=== PATIENT | male | born 1965 | race Caucasian/White ===

== ENCOUNTER 2018-03-10 08:54 | Emergency (ER) | payer OTHER ==
[2018-03-10] MEDS: methylPREDNISolone INJ 125 MG/2 ML VIAL (J2930) IV (09:30)
[2018-03-10 10:08] LABS: VENOUS BASE EXCESS 3.9 (-2.0-2.0); VENOUS HCO3 31.3 MEQ/L (23.0-27.0); VENOUS O2 SATURATION 93.4 % (60.0-80.0); VENOUS PARTIAL PRESSURE O2 68.8 mmHg (30.0-50.0); VENOUS STANDARD HCO3 27.9 MEQ/L; VENOUS TOTAL CO2 33.1 MEQ/L (24.0-28.0)
[2018-03-10] MEDS: IPRATROPIUM 0.5MG/ALBUTEROL 2.5MG INH SOL UD 3ML (DUONEB)(J7620) NEB (10:11)
[2018-03-10 10:14] LABS: BASO # 0.1 10^3/uL (0.0-0.2); EOS # 0.2 10^3/uL (0.0-0.50); EOS % 3.9 % (0.0-3.0); HEMATOCRIT 43.4 % (42.0-52.0); HEMOGLOBIN 14.5 g/dl (13.5-17.5); IMMATURE GRANULOCYTE % 0.2 % (0-3.0); LYMPH # 1.9 10^3/uL (1.5-4.5); LYMPH % 30.7 % (24.0-44.0); MEAN CORPUSCULAR HEMOGLOBIN 30.6 pg (27.0-33.0); MEAN CORPUSCULAR HGB CONC 33.4 g/dl (32.0-36.5); MEAN CORPUSCULAR VOLUME 91.6 fl (80.0-96.0); MONO # 0.5 10^3/uL (0.0-0.8); MONO % 7.4 % (0.0-5.0); NEUTROPHILS # 3.5 10^3/uL (1.8-7.7); NEUTROPHILS % 56.8 % (36.0-66.0); PLATELET COUNT, AUTOMATED 238 10^3/uL (150-450); RED BLOOD COUNT 4.74 10^6/uL (4.30-6.10); RED CELL DISTRIBUTION WIDTH 12.3 % (11.5-14.5); WHITE BLOOD COUNT 6.2 10^3/uL (4.0-10.0)
[2018-03-10 10:32] LABS: ALBUMIN 3.5 GM/DL (3.2-5.2); ALBUMIN/GLOBULIN RATIO 0.88 (1.00-1.93); ALKALINE PHOSPHATASE 58 U/L (45-117); ALT/SGPT 94 U/L (12-78); ANION GAP 5 MEQ/L (8-16); AST/SGOT 41 U/L (7-37); BILIRUBIN,DIRECT < 0.1 MG/DL (0.0-0.2); BILIRUBIN,TOTAL 0.2 MG/DL (0.2-1.0); BLOOD UREA NITROGEN 22 MG/DL (7-18); CALCIUM LEVEL 8.8 MG/DL (8.5-10.1); CARBON DIOXIDE LEVEL 31 MEQ/L (21-32); CHLORIDE LEVEL 104 MEQ/L (98-107); CPK CREATINE PHOSPHOKINASE 205 U/L (39-308); GLOMERULAR FILTRATION RATE > 60.0 (>56); GLUCOSE, FASTING 113 MG/DL (70-100); POTASSIUM SERUM 4.7 MEQ/L (3.5-5.1); SODIUM LEVEL 140 MEQ/L (136-145); TOTAL PROTEIN 7.5 GM/DL (6.4-8.2); TROPONIN I < 0.02 NG/ML (< 0.10)
[2018-03-10 10:33] LABS: MB/CK RELATIVE INDEX 1.95 (< OR =4); NT-PRO BNP 40 PG/ML (<125)
== END 2018-03-10 11:20 | disposition home or self-care (01) ==
LOC: M ED 08:54
DX: I10 Essential (primary) hypertension (principal); R06.02 Shortness of breath; R06.2 Wheezing; F17.210 Nicotine dependence, cigarettes, uncomplicated; R94.5 Abnormal results of liver function studies
CPT/HCPCS: J2930

== ENCOUNTER 2020-10-24 09:14 | Inpatient (IN) | payer OTHER ==
[~2020-10-24] VITALS: Ht 175.3 cm; Wt 123.8 kg
[~2020-10-24 09:14] MED LIST: LISI2.5T2 PO; PRED20TA PO; PROAAER10 INH; SUBO8MIS SL
--- NOTE | 2020-10-24 10:01 | REP ---
INDICATION: DYSPNEA/COUGH COMPARISON: 03/10/2018 TECHNIQUE: Portable AP view of the chest FINDINGS: The mediastinum and cardiac silhouette are stable and within normal limits for portable technique. The lung allison are clear without acute consolidation, effusion, or pneumothorax. Skeletal structures are intact. IMPRESSION: No acute cardiopulmonary process appreciated. <Electronically signed by Jose Coyle > 10/24/20 0958
[2020-10-24 10:12] LABS: VENOUS BASE EXCESS 5.9 (-2.0-2.0); VENOUS HCO3 36.4 MEQ/L (23.0-27.0); VENOUS O2 SATURATION 87.9 % (60.0-80.0); VENOUS PARTIAL PRESSURE CO2 80.3 mmHg (38.0-50.0); VENOUS PARTIAL PRESSURE O2 56.5 mmHg (30.0-50.0); VENOUS PH 7.274 UNITS (7.330-7.430); VENOUS STANDARD HCO3 29.5 MEQ/L; VENOUS TOTAL CO2 38.8 MEQ/L (24.0-28.0)
[2020-10-24 10:30] LABS: BASO # 0.1 10^3/uL (0.0-0.2); BASO % 0.9 % (0.0-1.0); EOS # 0.3 10^3/uL (0.0-0.5); HEMATOCRIT 48.9 % (42.0-52.0); HEMOGLOBIN 15.4 g/dl (13.5-17.5); LYMPH # 1.9 10^3/uL (1.5-5.0); LYMPH % 28.3 % (24.0-44.0); MEAN CORPUSCULAR HEMOGLOBIN 30.6 pg (27.0-33.0); MEAN CORPUSCULAR HGB CONC 31.5 g/dl (32.0-36.5); MEAN CORPUSCULAR VOLUME 97.2 fl (80.0-96.0); MONO # 0.5 10^3/uL (0.0-0.8); MONO % 7.6 % (2.0-8.0); NEUTROPHILS # 3.9 10^3/uL (1.5-8.5); NEUTROPHILS % 58.9 % (36.0-66.0); PLATELET COUNT, AUTOMATED 223 10^3/uL (150-450); RED BLOOD COUNT 5.03 10^6/uL (4.30-6.10); WHITE BLOOD COUNT 6.7 10^3/uL (4.0-10.0)
[2020-10-24 10:39] LABS: INR 0.94; PROTHROMBIN TIME 12.8 SECONDS (12.5-14.3)
[2020-10-24 10:55] LABS: ALBUMIN 3.7 GM/DL (3.2-5.2); ALT/SGPT 103 U/L (12-78); BILIRUBIN,DIRECT < 0.1 MG/DL (0.0-0.2); BILIRUBIN,TOTAL 0.3 MG/DL (0.2-1.0); NT-PRO BNP 69 PG/ML (<125); THYROXINE (T4) 7.7 UG/DL (4.5-12.0); TOTAL PROTEIN 7.6 GM/DL (6.4-8.2)
[2020-10-24 11:27] LABS: BLOOD UREA NITROGEN 19 MG/DL (7-18); CARBON DIOXIDE LEVEL 36 MEQ/L (21-32); CHLORIDE LEVEL 102 MEQ/L (98-107); CREATININE FOR GFR 0.96 MG/DL (0.70-1.30); GLOMERULAR FILTRATION RATE > 60.0 (>56); GLUCOSE, FASTING 126 MG/DL (70-100); POTASSIUM SERUM 4.7 MEQ/L (3.5-5.1); SODIUM LEVEL 139 MEQ/L (136-145)
[2020-10-24] MEDS ORDERED: methylPREDNISolone 125MG 2ML VIAL IV ONE (11:55)
[2020-10-24] MEDS: COMBIVENT RESPIMAT 100-20MCG INHALER 4GM INH PRN ×2 (11:58→12:40)
[2020-10-24] MEDS ORDERED: ISOVUE-370 76% 100ML VIAL As Ordered ONE (12:25)
--- NOTE | 2020-10-24 12:52 | REP ---
INDICATION: sob. COMPARISON: None. TECHNIQUE: CT of the chest with IV contrast, CT angiography. FINDINGS: There are no emboli in the pulmonary trunk or central pulmonary arteries. There are no emboli in the pulmonary artery lobar segment branches. There are no infiltrates or pleural effusions. There are no nodules or masses. There is no mediastinal or hilar lymph node enlargement. There is no axillary lymphadenopathy. The thoracic aorta is unremarkable. Cardiac size is normal. There is no pericardial effusion. Upper abdomen: The hepatic parenchyma is diffusely less dense than the spleen suggestive of hepato steatosis. There are no hepatic nodules or masses in the visualized hepatic parenchyma. The gallbladder is not imaged. The pancreas is not imaged. The visualized areas of the spleen are unremarkable. There are no adrenal nodules or masses. IMPRESSION: There are no pulmonary emboli. There are no infiltrates, effusions, nodules or masses. No adenopathy. The gallbladder and pancreas are not imaged. There are no adrenal nodules or masses. <Electronically signed by Harrison Akers > 10/24/20 [id number]
[2020-10-24] MEDS ORDERED: ACETAMINOPHEN TAB 650MG DOSE (2X325MG) PO PRN (14:05)
[2020-10-24] MEDS ORDERED: MOM 30ML SUSPENSION UDC PO PRN (14:05)
[2020-10-24] MEDS ORDERED: MAALOX 30 ML SUSP *UDC PO PRN (14:05)
[2020-10-24 15:00] LABS: APPEARANCE, URINE CLEAR (CLEAR); BACTERIA, URINE AUTO NEGATIVE (NEGATIVE); BILIRUBIN, URINE AUTO NEGATIVE (NEGATIVE); BLOOD, URINE BLOOD NEGATIVE (NEGATIVE); COLOR, URINE YELLOW (YELLOW); GLUCOSE, URINE (UA) AUTO NEGATIVE (NEGATIVE); KETONE, URINE AUTO NEGATIVE (NEGATIVE); LEUKOCYTE ESTERASE, URINE AUTO NEGATIVE (NEGATIVE); NITRITE, URINE AUTO NEGATIVE (NEGATIVE); PROTEIN, URINE AUTO NEGATIVE (NEGATIVE); RBC, URINE AUTO 0 /HPF (0-3); SQUAMOUS EPITHELIAL CELL UR AU 0 /HPF (0-6); UROBILINOGEN, URINE AUTO 0.2 mg/dL (0.0-2.0); WBC, URINE AUTO 0 /HPF (0-3)
[2020-10-24 15:18] LABS: HEMOGLOBIN A1c 6.5 %
[2020-10-24] MEDS ORDERED: FUROSEMIDE 100MG/10ML VIAL (J1940) IV ONE (15:25)
[2020-10-24] MEDS ORDERED: CARVedilol 3.125 MG TAB PO ONE (15:25)
[2020-10-24 15:55] VITALS: BP 164/78
[2020-10-24 16:48] LABS: TROPONIN I 0.03 NG/ML (< 0.10)
[2020-10-24] MEDS: NICOTINE 14 MG/24 HR TRANSDERMAL TD SCH (16:52)
--- NOTE | 2020-10-24 16:53 | HPEPDOC ---
[facility] Medical History & Physical Date of Admission Oct 24, 2020 Date of Service: Oct 24, 2020 Primary Care Physician: Steven Martinez MD Attending Physician: DANIEL HUSSEIN MD History and Physical CHIEF COMPLAINT: Shortness of breath HISTORY OF PRESENT ILLNESS: Mr. Jorge is a 55 y/o M with hx of previously treated HTN and opioid use disorder (In remission for 15 years with Suboxone), presenting to the ED complaining of worsening SOB for the past week. Per patient, his symptoms first started 6 months ago with B/L leg swelling without redness or pain. 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 His SOB was so severe that he had difficulty getting on and off construction vehicles, forcing him to take frequent breaks with some improvement in his SOB. His symptoms continued to worsen and were complicated with nocturnal cough, B/L LE erythema and yellowing of toenail on wednesday. He felt like his feet "weighted 100lbs" and he was barely able to move his ankles. Today, patient had a scheduled appointment with Dr. Martinez (his PCP) and reported his symptoms, prompting his referral to ED for evaluation. Patient denied associated weight changes, fever, chills, CP, orthopnea, abd pain, N/V/D, urinary issues, but noted dyspnea on exertion with associated palpitation. He also reported some cold intolerance. Of note, patient reported that he used to see Dr. Stein as PCP and Dr. Martinez for addiction medicine a year ago(patient with hx of snorting heroine, has been clean for the past 15 years and managed with Suboxone). Due to insurance issue, patient stopped seeing Dr. Stein and ran out of all his medication after a month. Although unable to recall name and dosage, he reported that he used to take "b lood pressure pill, fluid pill and an inhaler". He has been using his brother's inhaler and last use was 2 months ago. He also reported hx of "thyroid issues" a year ago that caused him to gain 80lbs over 90 days, but he received no treatment due to loss of PCP. While in the ED, patient's CXR and chest CTA were unremarkable. EKG showed NSR at rate of 80 bpm. His O2 sat remained at high 80s on RA. Hospitalist was called for admission for COPD exacerbation. PAST MEDICAL HISTORY: 1. Hx of previously treated HTN 2. Hx of opioid use disorder, in remission PAST SURGICAL HISTORY: 1. 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 IV drug use: Denied Other relevant social factors: Lives at home with girlfriend and daughter, no use of wood burning stove. Has 1 cat and 1 dog. No recent sick contact. FAMILY HISTORY: Father: of lung cancer at age 75. Mother: living with hx of DM and breast cancer, age 78 Siblings: Brother of electrical accident Children: daughter in good health ALLERGIES: Please see below. REVIEW OF SYSTEMS: CONSTITUTIONAL: Denies chills, fever, loss of appetite, but noted fatigue, generalized weakness, sweating and weight gain of 80lbs over 90 days a year ago. HEENT: Denies headaches, dizziness, vision changes, hearing changes or throat pain. CARDIOVASCULAR: Denies chest pain but noted palpitations, dyspnea on exertion, edema RESPIRATORY: Denies hemoptysis, orthopnea but noted nocturnal cough and dyspnea GASTROINTESTINAL: Denies nausea, vomiting, abdominal pain, diarrhea, constipation, melena, hematochezia GENITAOURINARY: Denies dysuria, hematuria, urinary frequency, incontinence or retention. SKIN: Denies lesions, jaundice, bruising MUSCULOSKELETAL: Denies muscle or joint pain but noted generalized weakness NEUROLOGICAL: Denies focal weakness, tingling, change in Speech, but noted mild numbness in B/L LE. PSYCHIATRIC: Denies SI, HI, audio/visual hallucination HEMATOLOGICAL: Denies bruising, excessive bleeding, petechiae ENDOCRINE: Noted cold intolerance HOME MEDICATIONS: Please see below. PHYSICAL EXAMINATION: VITAL SIGNS: See below GENERAL APPEARANCE: Revealed a 55 y/o M appeared as stated age in semi-barroso position on ER cot, alert & oriented x3, in no acute Distress. HEENT Exam: Normocephalic and atraumatic, PERRLA, conjunctiva & lids normal, EOMI, without sclera icteric, mucous membr. moist/pink, pharynx normal, nares patent on 1L/min O2 via NC. NECK: Supple without lymphadenopathy, JVD, thyromegaly LUNGS: Diffuse end expiratory wheezing more prominent in the upper lobes bilaterally without rales and crackles. CARDIOVASCULAR: Regular rate and rhythm, normal S1 & S2 without gallops, murmurs, rubs TELEMETRY: Showed 82 bpm, 184/88, 92% on 1L/min, RR of 23 ABDOMEN: Obese, distended abd, soft, non-distended with normal bowel sounds. No masses or ecchymosis or hepatosplenomegaly. EXTREMITIES: 2+ radial pulses, unable to assess DP, PT pulses due to edema, delayed capillary refill >2 seconds in B/L LE. No clubbing, cyanosis. Non- pitting edema noted in B/L UE. 2+ pitting edema with erythema and discoloration in B/L LE. SKIN: Normal turgor and temperature. Skin discoloration noted in all four extremities. MUSCULOSKELETAL: Strength +5/5 in all extremities without tenderness. NEUROLOGICAL: Normal speech with intact sensation, cranial nerves III-XII normal. No gross focal neurological deficit noted. PSYCHIATRIC: Normal mood and affect LABORATORY DATA: See below. IMAGIN. Portable Chest C-ray 10/24/2020 IMPRESSION: No acute cardiopulmonary process appreciated. 2. CT angio chest 10/24/2020 IMPRESSION: There are no pulmonary emboli. There are no infiltrates, effusions, nodules or masses. No adenopathy. The gallbladder and pancreas are not imaged. There are no adrenal nodules or masses. MICROBIOLOGY: Please see below. ASSESSMENT: Mr. Jorge is a 55 y/o M with hx of previously treated HTN and opioid use disorder (In remission for 15 years with Suboxone), presenting to the ED complaining of worsening SOB for the past week. Patient is admitted for shortness of breath requiring oxygen supplementation to maintain O2 saturation above 90%. PLAN: 1. Shortness of breath with B/L LE swelling - Etiology unknown, could be multifactorial, ddx includes: R sided HF, combination of R&L sided HF, R sided HF 2/2 pulmonary HTN, restrictive lung disease, ILD - most likely R sided HF 2/2 obesity, smoking, pulmonary HTN and ILD - received 2 doses of Combivent Respimat and 125mg IV solumedrol in ED - IV lasix 60mg today, re-evaluate volume status tomorrow am - Repeat EKG in am, telemetry overnight - Trend trop x1 - thyroid panel, CXR, CTA chest, BNP and trop (POC) unremarkable, Respiratory panel and COVID negative - B/L LE doppler US to r/o DVT - Cont Combivent inhaler prn - 2D echocardiogram in am - PO prednisone 40mg in am - Start low dose Coreg 3.125mg BID - Daily CBC and CMP - Daily weighs and monitor I/O 2. Hx of previous treated HTN - Hypertensive 188/94 in the ED - Start low dose Coreg 3.125mg BID and IV lasix 60mg today - Continue to monitor and adjust BP regimen accordingly 3. Diabetes Mellitus, newly diagnosed - Patient reported drinking 6-8 cans of soda daily - Elevated BS 126 - A1c 6.5 - No regimen inpatient, will need outpatient follow up for diabetic regimen - Lipid panel in am, UA 4. Tobacco use - Nicotine patch QD - peer counselor for smoking cessation 5. Transaminitis - Can be 2/2 hepatic congestion - AST 42, ALT 103 - Repeat CMP to monitor - F/u hepatitis panel 6. Heroine use disorder, in remission - In remission for the past 15 years with Suboxone - Cont home dose suboxone Disposition: Admit to inpatient Diet: 2gm sodium diet VTE prophylaxis: Lovenox Code status: Full code Baseline ambulatory status: Ambulatory without assistance. Vital Signs Vital Signs Date Time Temp Pulse Resp B/P (MAP) Pulse Ox O2 Delivery O2 Flow Rate FiO2 10/24/20 14:30 81 22 146/84 (104) 95 Nasal Cannula 1.5 10/24/20 09:15 97.0 Laboratory Data Labs 24H Laboratory Tests 2 10/24/20 09:38: Immature Granulocyte % (Auto) 0.3, Neutrophils (%) (Auto) 58.9, Lymphocytes (%) (Auto) 28.3, Monocytes (%) (Auto) 7.6, Eosinophils (%) (Auto) 4.0H, Basophils (%) (Auto) 0.9, Neutrophils # (Auto) 3.9, Lymphocytes # (Auto) 1.9, Monocytes # (Auto) 0.5, Eosinophils # (Auto) 0.3, Basophils # (Auto) 0.1, Nucleated Red Blood Cells % (auto) 0.0, Prothrombin Time 12.8, Prothromb Time International Ratio 0.94, Anion Gap 1L, Glomerular Filtration Rate > 60.0, Estimated Mean Plasma Glucose 140H, Hemoglobin A1c 6.5, Calcium Level 9.0, Total Bilirubin 0.3, Direct Bilirubin < 0.1, Aspartate Amino Transf (AST/SGOT) 42H, Alanine Aminotransferase (ALT/SGPT) 103H, Alkaline Phosphatase 74, XO-Wiz-I-Type Natri uretic Peptide 69, Total Protein 7.6, Albumin 3.7, Albumin/Globulin Ratio 0.9, Thyroid Stimulating Hormone (TSH) 1.460, Thyroxine (T4) 7.7 10/24/20 09:41: Blood Gas Bicarbonate Standard 29.5, Venous Blood pH 7.274L, Venous Blood Partial Pressure CO2 80.3H, Venous Blood Partial Pressure O2 56.5H, Venous Blood Total Carbon Dioxide 38.8H, Venous Blood HCO3 36.4H, Venous Blood Oxygen Saturation 87.9H, Venous Blood Base Excess 5.9H 10/24/20 10:08: POC Troponin I (Misc) 0.02 10/24/20 11:45: POC pH (Misc Panel) 7.293L, POC Base Excess (Misc Panel) 11.0H, POC Saturated Percent O2 (Misc) 92L, POC pO2 (Misc Panel) 73.0L, POC pCO2 (Misc Panel) 76.5*H, POC HCO3 (Misc Panel) 37.0H, POC Total CO2 (Misc Panel) 39.0H 10/24/20 14:48: Urine Color YELLOW, Urine Appearance CLEAR, Urine pH 6.0, Urine Specific [place] 1.050, Urine Protein NEGATIVE, Urine Glucose (Auto)(UA) NEGATIVE, Urine Ketones (Auto) NEGATIVE, Urine Blood NEGATIVE, Urine Nitrite NEGATIVE, Urine Bilirubin NEGATIVE, Urine Urobilinogen 0.2, Urine Leukocyte Esterase (Auto) NEGATIVE, Urine WBC (Auto) 0, Urine RBC (Auto) 0, Urine Hyaline Casts (Auto) 0, Urine Ba cteria (Auto) NEGATIVE, Urine Squamous Epithelial Cells 0, Urine Sperm (Auto) CBC/BMP Laboratory Tests 10/24/20 09:38 Microbiology Microbiology 10/24/20 Blood Culture, Received Pending 10/24/20 Respiratory Virus Panel (PCR) ([facility]) - Final, Complete 10/24/20 Blood Culture, Received Pending Home Medications Scheduled Buprenorphine HCl/Naloxone HCl (Suboxone 8 mg-2 mg Sl Film) 1 Mis Mis, 1 FILM SL BID Allergies Coded Allergies: No Known Allergies (Unverified , 03/10/18) A-FIB/CHADSVASC A-FIB History Current/History of A-Fib/PAF?: No GME ATTESTATION GME ATTESTATION My faculty preceptor for this patient encounter was physically present during the encounter and was fully available. All aspects of the patient interview, examination, medical decision making process, and medical care plan development were reviewed and approved by the faculty preceptor. The faculty preceptor is aware and concurs with the plan as stated in the body of this note and will attest to such by his/her cosignature. ATTENDING NOTE I, Daniel Hussein MD, have independently examined this patient and performed my own physical exam, as well as reviewed the documentation and edited where necessary. I have discussed in detail with the resident / student the findings and plan of treatment as documented by the resident / student and edited their note. I agree with their findings and treatment plan and have edited their documentation. PRANAV CAGLE OMS-3 Oct 24, 2020 16:52 DANIEL HUSSEIN MD Oct 25, 2020 15:11
--- NOTE | 2020-10-24 17:02 | REP ---
INDICATION: b/l leg swelling COMPARISON: None. TECHNIQUE: Real time compression and duplex Doppler interrogation of the bilateral lower extremity deep venous system is performed. FINDINGS: Bilaterally, the common femoral, superficial femoral and popliteal veins are fully compressible with transducer pressure and demonstrate normal spontaneous and phasic flow, without evidence of deep venous thrombosis. IMPRESSION: No evidence of deep venous thrombosis of the bilateral lower extremity femoral popliteal venous system. <Electronically signed by Harrison Shah > 10/24/20 [id number]
[2020-10-24 18:07] LABS: HEPATITIS B SURFACE ANTIBODY NEGATIVE (POSITIVE)
[2020-10-24 18:18] LABS: HEPATITIS B SURFACE ANTIGEN NEGATIVE (NEGATIVE)
[2020-10-24 18:46] LABS: HEPATITIS C VIRUS ABY INDEX < 0.0 INDEX (<0.8)
[2020-10-24] MEDS: DOCUSATE SODIUM 100MG CAPSULE PO SCH ×2 (20:21→20:27)
[2020-10-24] MEDS: CARVedilol 3.125 MG TAB PO SCH (20:21)
[2020-10-24] MEDS: BUPRENORPHINE/NALOXONE 8-2MG SUBLINGUAL TABLET(SUBOXONE) SL SCH (20:21)
[2020-10-24 22:00] VITALS: BP 139/83
--- NOTE | 2020-10-25 05:54 | ECGEPIP ---
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
[2020-10-25 06:00] VITALS: BP 152/90
[2020-10-25 06:52] LABS: BASO % 0.1 % (0.0-1.0); HEMATOCRIT 51.8 % (42.0-52.0); HEMOGLOBIN 16.4 g/dl (13.5-17.5); LYMPH # 1.1 10^3/uL (1.5-5.0); LYMPH % 7.9 % (24.0-44.0); MEAN CORPUSCULAR HEMOGLOBIN 30.4 pg (27.0-33.0); MEAN CORPUSCULAR HGB CONC 31.7 g/dl (32.0-36.5); MEAN CORPUSCULAR VOLUME 95.9 fl (80.0-96.0); MONO # 0.4 10^3/uL (0.0-0.8); MONO % 3.1 % (2.0-8.0); NEUTROPHILS # 12.2 10^3/uL (1.5-8.5); NEUTROPHILS % 88.5 % (36.0-66.0); PLATELET COUNT, AUTOMATED 247 10^3/uL (150-450); WHITE BLOOD COUNT 13.8 10^3/uL (4.0-10.0)
[2020-10-25 07:20] LABS: ALBUMIN 3.6 GM/DL (3.2-5.2); ALT/SGPT 85 U/L (12-78); BILIRUBIN,TOTAL 0.4 MG/DL (0.2-1.0); BLOOD UREA NITROGEN 21 MG/DL (7-18); CALCIUM LEVEL 9.2 MG/DL (8.5-10.1); CARBON DIOXIDE LEVEL 38 MEQ/L (21-32); CHLORIDE LEVEL 99 MEQ/L (98-107); CHOLESTEROL LEVEL 166 MG/DL (<200); CHOLESTEROL RISK RATIO 2.477 (<5); CREATININE FOR GFR 1.01 MG/DL (0.70-1.30); GLOMERULAR FILTRATION RATE > 60.0 (>56); GLUCOSE, FASTING 139 MG/DL (70-100); HDL CHOLESTEROL 67 MG/DL (>40); LDL CHOLESTEROL 90 MG/DL (<100); NON-HDL-C 99 MG/DL; POTASSIUM SERUM 4.7 MEQ/L (3.5-5.1); SODIUM LEVEL 137 MEQ/L (136-145); TOTAL PROTEIN 8.8 GM/DL (6.4-8.2); TRIGLYCERIDES LEVEL 46 MG/DL (<150)
[2020-10-25] MEDS ORDERED: NICOTINE 14 MG/24 HR TRANSDERMAL TD SCH (09:00)
[2020-10-25] MEDS ORDERED: predniSONE 20 MG TAB PO ONE (09:00)
[2020-10-25] MEDS ORDERED: FUROSEMIDE 40MG/4ML VIAL (J1940) IV ONE (09:10)
[2020-10-25] MEDS: NICOTINE 14 MG/24 HR TRANSDERMAL TD SCH (10:22)
[2020-10-25] MEDS: ENOXAPARIN 40MG/0.4ML SYRINGE (J1650 PER 10MG) SC SCH (10:22)
[2020-10-25] MEDS: BUPRENORPHINE/NALOXONE 8-2MG SUBLINGUAL TABLET(SUBOXONE) SL SCH ×2 (10:23→21:19)
[2020-10-25] MEDS: DOCUSATE SODIUM 100MG CAPSULE PO SCH ×2 (10:23→21:19)
[2020-10-25] MEDS: CARVedilol 3.125 MG TAB PO SCH ×2 (10:26→21:20)
--- NOTE | 2020-10-25 10:37 | ECGEPIP ---
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
[2020-10-25 14:00] VITALS: BP 130/82
--- NOTE | 2020-10-25 14:10 | IPNPDOC ---
Text Note Date of Service The patient was seen on 10/25/20. NOTE S Patient reported his swelling and SOB has improved with treatment. His fluid balance was recorded as -475cc overnight. Patient was able to ambulate around the room without severe dyspnea, and he feels like the swelling improved because his inner thighs are no longer touching on ambulation. Patient denied associated fever, chills, N/V/D, abd pain and urinary symptoms. His blood pressure was elevated 152/90 this morning. His telemetry showed no acute event overnight. O PHYSICAL EXAMINATION: VITAL SIGNS: See below GENERAL APPEARANCE: Revealed a 55 y/o M appeared as stated age sitting on the edge of bed, alert oriented x3, in no acute Distress. HEENT Exam: Normocephalic and atraumatic, PERRLA, conjunctiva & lids normal, EOMI, without sclera icteric, mucous membr. moist/pink, pharynx normal, nares patent on 2L/min O2 via NC. NECK: Supple without lymphadenopathy, JVD, thyromegaly LUNGS: Diffuse end expiratory wheezing more prominent in the right upper lobe without rales and crackles. CARDIOVASCULAR: Regular rate and rhythm, normal S1 & S2 without gallops, m urmurs, rubs ABDOMEN: Obese, distended abd, soft, non-distended with normal bowel sounds. No masses or ecchymosis or hepatosplenomegaly. EXTREMITIES: 2+ radial pulses, unable to assess DP, PT pulses due to edema, delayed capillary refill >2 seconds in B/L LE. No clubbing, cyanosis. Non- pitting edema noted in B/L UE. 2+ pitting edema with erythema and discoloration in B/L LE extending proximally from below knee. SKIN: Normal turgor and temperature. Skin discoloration noted in all four extremities. MUSCULOSKELETAL: Strength +5/5 in all extremities without tenderness. NEUROLOGICAL: Normal speech with intact sensation, cranial nerves III-XII normal. No gross focal neurological deficit noted. PSYCHIATRIC: Normal mood and affect LABORATORY DATA: See below. ASSESSMENT: Mr. Jorge is a 55 y/o M with hx of previously treated HTN and opioid use disorder (In remission for 15 years with Suboxone), presenting to the ED complaining of worsening SOB for the past week. Patient is admitted for shortness of breath requiring oxygen supplementation to maintain O2 saturation above 90%. He was given 60mg IV lasix 10/24 and has clinically improved, however, he continues to display signs of hypervolemia requiring more diuretics. Thyroid panel, CXR, CTA chest, BNP, trop x2, B/L LE Doppler unremarkable, Respiratory panel and COVID negative PLAN: 1. Shortness of breath with B/L LE swelling - Etiology unknown, could be multifactorial, ddx includes: R sided HF, combination of R&L sided HF, R sided HF 2/2 pulmonary HTN, restrictive lung disease, ILD - most likely R sided HF 2/2 obesity, smoking, pulmonary HTN and ILD - received 2 doses of Combivent Respimat and 125mg IV solumedrol in the ED on 10/24 - IV lasix 60mg and 40mg prednisone after admission on 10/24, clinically still hypervolemic, one more dose of 40mg IV lasix this am and re-evaluate in the evening. - Telemetry overnight showed no acute event, morning EKG reviewed showed NSR at rate of 86 bpm. - Trop x2 negative - thyroid panel, CXR, CTA chest, BNP and trop (POC) unremarkable, Respiratory panel and COVID negative - B/L LE doppler US returned negative for DVT. - Cont Combivent inhaler prn - 2D echocardiogram pending - Cont low dose Coreg 3.125mg BID - Cont CBC and CMP - Cont Daily weighs and monitor I/O - Cont O2 supplementation, titrate to keep O2 >90% 2. Hx of previous treated HTN - Hypertensive 188/94 in the ED, 152/90 today - Cont low dose Coreg 3.125mg BID - Start 10mg PO lisinopril QD - Received IV lasix 60mg yesterday, ordered 40mg IV lasix today - Continue to monitor and adjust BP regimen accordingly 3. Leukocytosis - WBC lazara from 6.7 to 13.8 - Likely 2/2 steroid therapy patient received - No other signs of infection at this time - Cont to monitor 4. Diabetes Mellitus, newly diagnosed - Patient reported drinking 6-8 cans of soda daily - Elevated BS 139 today - A1c 6.5 - No regimen inpatient, will need outpatient follow up for diabetic regimen - Lipid panel unremarkable, however, patient's ASCVD calculation revealed risk of 14% at intermediate risk, patient will benefit from statin therapy once outpatient. - UA negative for glucose and protein 5. Tobacco use - Nicotine patch QD - compliance counsel for smoking cessation 6. Transaminitis - Hepatic congestion vs LAWSON - More like LAWSON given obesity, DM, HTN - Mild improvement in labs today, AST 43, ALT 85 - Hepatitis B&C negative 7. Heroine use disorder, in remission - In remission for the past 15 years with Suboxone - Cont home dose suboxone Disposition: Not ready for discharge, will need f/u on echo and weaning off oxygen. Diet: 2gm sodium diet VTE prophylaxis: Lovenox Baseline ambulatory status: Ambulatory without assistance. VS,Fishbone, I+O VS, Fishbone, I+O Laboratory Tests 10/24/20 09:38 10/25/20 06:39 Vital Signs Date Time Temp Pulse Resp B/P (MAP) Pulse Ox O2 Delivery O2 Flow Rate FiO2 10/25/20 06:00 96.9 88 15 152/90 (110) 92 Nasal Cannula 2.0 I&O- Last 24 Hours up to 6 AM 10/25/20 06:00 Intake Total 510 ml Output Total 475 ml Balance 35 ml GME ATTESTATION GME ATTESTATION My faculty preceptor for this patient encounter was physically present during the encounter and was fully available. All aspects of the patient interview, examination, medical decision making process, and medical care plan development were reviewed and approved by the faculty preceptor. The faculty preceptor is aware and concurs with the plan as stated in the body of this note and will attest to such by his/her cosignature. ATTENDING NOTE I, Luis Hussein MD, have independently examined this patient and performed my own physical exam, as well as reviewed the documentation and edited where necessary. I have discussed in detail with the resident / student the findings and plan of treatment as documented by the resident / student and edited their note. I agree with their findings and treatment plan and have edited their documentation. PRANAV CAGLE OMS-3 Oct 25, 2020 09:52 LUIS HUSSEIN MD Oct 25, 2020 15:18
[2020-10-25 22:00] VITALS: BP 146/94
[2020-10-26 06:00] VITALS: BP 140/88
[2020-10-26 06:04] LABS: BASO # 0.1 10^3/uL (0.0-0.2); BASO % 0.4 % (0.0-1.0); EOS # 0.1 10^3/uL (0.0-0.5); EOS % 0.9 % (0.0-3.0); HEMATOCRIT 52.5 % (42.0-52.0); LYMPH # 2.8 10^3/uL (1.5-5.0); LYMPH % 24.5 % (24.0-44.0); MEAN CORPUSCULAR HGB CONC 30.5 g/dl (32.0-36.5); MEAN CORPUSCULAR VOLUME 98.3 fl (80.0-96.0); MONO # 0.9 10^3/uL (0.0-0.8); MONO % 8.3 % (2.0-8.0); NEUTROPHILS # 7.4 10^3/uL (1.5-8.5); NEUTROPHILS % 65.6 % (36.0-66.0); PLATELET COUNT, AUTOMATED 224 10^3/uL (150-450); RED BLOOD COUNT 5.34 10^6/uL (4.30-6.10); WHITE BLOOD COUNT 11.2 10^3/uL (4.0-10.0)
[2020-10-26 06:30] LABS: ALBUMIN 3.5 GM/DL (3.2-5.2); ALT/SGPT 77 U/L (12-78); BILIRUBIN,TOTAL 0.2 MG/DL (0.2-1.0); BLOOD UREA NITROGEN 24 MG/DL (7-18); CARBON DIOXIDE LEVEL 42 MEQ/L (21-32); CHLORIDE LEVEL 100 MEQ/L (98-107); CREATININE FOR GFR 0.92 MG/DL (0.70-1.30); GLOMERULAR FILTRATION RATE > 60.0 (>56); GLUCOSE, FASTING 108 MG/DL (70-100); POTASSIUM SERUM 4.2 MEQ/L (3.5-5.1); SODIUM LEVEL 140 MEQ/L (136-145); TOTAL PROTEIN 7.8 GM/DL (6.4-8.2)
[2020-10-26] MEDS: ATORVASTATIN 20 MG TAB PO SCH (08:29)
[2020-10-26] MEDS: ENOXAPARIN 40MG/0.4ML SYRINGE (J1650 PER 10MG) SC SCH (08:29)
[2020-10-26] MEDS: predniSONE 20 MG TAB PO SCH (08:29)
[2020-10-26] MEDS: NICOTINE 14 MG/24 HR TRANSDERMAL TD SCH (08:29)
[2020-10-26] MEDS: DOCUSATE SODIUM 100MG CAPSULE PO SCH ×2 (08:30→20:34)
[2020-10-26] MEDS: BUPRENORPHINE/NALOXONE 8-2MG SUBLINGUAL TABLET(SUBOXONE) SL SCH ×2 (08:30→20:34)
[2020-10-26] MEDS ORDERED: FUROSEMIDE 40MG/4ML VIAL (J1940) IV ONE ×2 (08:30→16:55)
[2020-10-26] MEDS: CARVedilol 3.125 MG TAB PO SCH ×2 (08:32→20:35)
--- NOTE | 2020-10-26 09:38 | IPNPDOC ---
Text Note Date of Service The patient was seen on 10/26/20. NOTE Subjective: Patient is a 55-year-old male who presented to the hospital on 10/24/2020 with a chief complaint of shortness of breath. Patient says his breathing is improved and he says the swelling has improved as well. Patient had his echocardiogram yesterday and the read is still pending. Patient says he is doing much better however, his pulse ox still remains low while off oxygen. Patient denies fevers or chills. Patient denies any shortness of breath. Patient did complain of a nonproductive cough earlier in the day but that did resolve. Patient is other thornton feeling well today. Physical exam: Vitals: See below General: Alert and oriented male patient who was sitting on the bed when I walked into the room. Patient did not have nasocannula oxygen on and did not appear to be in any acute distress. HEENT: Normocephalic, atraumatic, moist mucous membranes. Neck: No lymphadenopathy or thyromegaly Cardiac: Regular rate and rhythm, no murmurs, normal S1, normal S2 Pulm: Diminished breath sounds bilaterally with scattered end expiratory wheezing. No crackles or rhonchi. Abd: Nondistended, nontender to palpation, normal bowel sounds Ext: 1+ pitting edema up to the level of the mid snyder in bilateral lower extremities. Redness has improved. Chronic skin changes are present in bilateral lower extremities. Labs: See below Imaging: No new imaging is been performed in the last 24 hours Assessment/plan: Patient is a 55-year-old male who presented on 10/24/2020 with a long-standing history of shortness of breath that is worsened over the last few days. Patient's shortness of breath has improved however, the patient continues to have low pulse oximetry readings while off oxygen. 1. Shortness of breath. Exact cause of the shortness of breath is still unknown however, this could be multifactorial. Patient was wheezing on examination initi ally in the still wheezing. Patient is responding to IV Solu-Medrol and 1 by mouth dose of prednisone. Patient does not carry a diagnosis of COPD however, patient does smoke a pack a day of cigarettes. Echocardiogram was performed however, read is still pending. Patient will be given another dose of 40 mg of IV Lasix this morning to see if this improves his shortness of breath. While I was in the room, the patient would desat into the low 80s with minimal activity and conversation. Because of this, the patient was placed back on 2 L of oxygen and will be on continuous pulse oximetry reading. Patient will continue with 5 days of total steroids. Patient received 40 mg of by mouth prednisone today with the and date to be 10/28/2020. If the patient's pulse oximetry readings do not improve, patient may need home supplemental oxygen. 2. Hypertension. Patient had been treated for hypertension in the past and patient's blood pressures were elevated in the emergency department as well as the hospital. Patient was started on carvedilol 3.125 mg twice a day on admission. Lisinopril 10 mg daily was added yesterday. We'll continue to monitor and will continue this regimen. 3. Leukocytosis. Patient's leukocytosis is most likely secondary to steroid therapy and has improved today. 4. Type 2 diabetes mellitus newly diagnosed. A1c was 6.5. At this time, no treatment has been started but I have had a lengthy conversation with the patient about dietary changes, exercise, and the need to start metformin upon discharge. Patient is in agreement with this and will start taking metformin upon discharge. Patient will also be started on statin therapy with atorvastatin 40 mg today as the patient's ASCVD risk score was elevated due to his new diagnosis of type 2 diabetes. 5. Nicotine dependence, cigarettes. I had a long conversation with the patient about smoking cessation as the patient's shortness of breath is most likely multifactorial but with COPD and pulmonary hypertension being the leading diagnosis at this point, these are greatly affected by cigarette smoking. Advised patient that we will continue to use nicotine patches and we can send him home with some of these when he is ready to be discharged. Patient understands and will try to work with his addiction medicine provider to quit smoking. 6. Transaminitis. Hepatitis B and C were negative. Patient's liver enzymes have been stable. 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 7. Opiate use disorder, in remission. Patient follows with addiction medicine and uses Suboxone 8/2 twice a day. We'll continue this. DVT Prophylaxis: - c/w Lovenox Disposition: - Pending improvement in patient's oxygenation. Patient may require home O2 depending on echocardiogram findings. VS,Fishbone, I+O VS, Fishbone, I+O Laboratory Tests 10/26/20 05:30 Vital Signs Date Time Temp Pulse Resp B/P (MAP) Pulse Ox O2 Delivery O2 Flow Rate FiO2 10/26/20 08:32 94 10/26/20 08:30 158/90 10/26/20 06:00 97.9 18 88 Room Air 10/25/20 22:00 2.0 I&O- Last 24 Hours up to 6 AM 10/26/20 06:00 Intake Total 1580 ml Balance 1580 ml GME ATTESTATION GME ATTESTATION My faculty preceptor for this patient encounter was physically present during the encounter and was fully available. All aspects of the patient interview, examination, medical decision making process, and medical care plan development were reviewed and approved by the faculty preceptor. The faculty preceptor is aware and concurs with the plan as stated in the body of this note and will attest to such by his/her cosignature. ATTENDING NOTE I, Erin Isidro, have independently examined this patient and performed my own physical exam, as well as reviewed the documentation and edited where necessary. I have discussed in detail with the resident / student the findings and plan of treatment as documented by the resident / student and edited their note. I agree with their findings and treatment plan and have edited their documentation. I will continue to follow the patient during this hospital stay. BJ LEVY DO Oct 26, 2020 09:38 ERIN ISIDRO MD Oct 26, 2020 11:03
[2020-10-26 10:42] LABS: ABG BASE EXCESS 10.5 (-2.0-2.0); ABG HCO3 40.5 MEQ/L (22.0-26.0); ABG O2 SATURATION 89.9 % (95.0-99.0); ABG PARTIAL PRESSURE O2 58.7 mmHg (75.0-100.0); ABG TOTAL CO2 42.9 MEQ/L (22.0-29.0); ABG pH (ARTERIAL) 7.333 UNITS (7.350-7.450)
[2020-10-26 10:49] LABS: ABG PARTIAL PRESSURE CO2 78.1 mmHg (35.0-45.0)
[2020-10-26 14:00] VITALS: BP 148/84; O2SAT 89
[2020-10-26] MEDS: COMBIVENT RESPIMAT 100-20MCG INHALER 4GM INH PRN (17:38)
[2020-10-26 22:00] VITALS: BP 104/66
[2020-10-27 05:49] LABS: BASO # 0.1 10^3/uL (0.0-0.2); BASO % 0.7 % (0.0-1.0); EOS # 0.1 10^3/uL (0.0-0.5); HEMATOCRIT 53.2 % (42.0-52.0); HEMOGLOBIN 16.4 g/dl (13.5-17.5); LYMPH # 3.4 10^3/uL (1.5-5.0); LYMPH % 31.9 % (24.0-44.0); MEAN CORPUSCULAR HEMOGLOBIN 30.3 pg (27.0-33.0); MEAN CORPUSCULAR HGB CONC 30.8 g/dl (32.0-36.5); MEAN CORPUSCULAR VOLUME 98.2 fl (80.0-96.0); MONO # 0.8 10^3/uL (0.0-0.8); MONO % 7.3 % (2.0-8.0); NEUTROPHILS # 6.2 10^3/uL (1.5-8.5); NEUTROPHILS % 58.8 % (36.0-66.0); PLATELET COUNT, AUTOMATED 227 10^3/uL (150-450); RED BLOOD COUNT 5.42 10^6/uL (4.30-6.10); WHITE BLOOD COUNT 10.6 10^3/uL (4.0-10.0)
[2020-10-27 06:00] VITALS: BP 150/90
[2020-10-27 06:20] LABS: ALBUMIN 3.4 GM/DL (3.2-5.2); ALT/SGPT 70 U/L (12-78); BILIRUBIN,TOTAL 0.4 MG/DL (0.2-1.0); BLOOD UREA NITROGEN 20 MG/DL (7-18); CALCIUM LEVEL 9.3 MG/DL (8.5-10.1); CARBON DIOXIDE LEVEL 42 MEQ/L (21-32); CHLORIDE LEVEL 97 MEQ/L (98-107); CREATININE FOR GFR 0.95 MG/DL (0.70-1.30); GLOMERULAR FILTRATION RATE > 60.0 (>56); GLUCOSE, FASTING 121 MG/DL (70-100); POTASSIUM SERUM 4.1 MEQ/L (3.5-5.1); SODIUM LEVEL 137 MEQ/L (136-145); TOTAL PROTEIN 7.9 GM/DL (6.4-8.2)
[2020-10-27] MEDS ORDERED: FUROSEMIDE 40MG/4ML VIAL (J1940) IV ONE (08:10)
[2020-10-27] MEDS: DOCUSATE SODIUM 100MG CAPSULE PO SCH (09:00)
[2020-10-27] MEDS: BUPRENORPHINE/NALOXONE 8-2MG SUBLINGUAL TABLET(SUBOXONE) SL SCH (10:19)
[2020-10-27] MEDS: CARVedilol 3.125 MG TAB PO SCH ×2 (10:19→18:02)
[2020-10-27] MEDS: ATORVASTATIN 20 MG TAB PO SCH (10:19)
[2020-10-27] MEDS: predniSONE 20 MG TAB PO SCH (10:19)
[2020-10-27] MEDS: ENOXAPARIN 40MG/0.4ML SYRINGE (J1650 PER 10MG) SC SCH (10:20)
[2020-10-27] MEDS: NICOTINE 14 MG/24 HR TRANSDERMAL TD SCH (10:21)
[2020-10-27 10:45] VITALS: O2SAT 90
[2020-10-27] MEDS: COMBIVENT RESPIMAT 100-20MCG INHALER 4GM INH PRN (10:45)
--- NOTE | 2020-10-27 11:04 | REP ---
INDICATION: SOB. COMPARISON: 10/24/2020. TECHNIQUE: SINGLE PORTABLE AP VIEW OF THE CHEST WAS PERFORMED. FINDINGS: THERE IS NO ACUTE INFILTRATE OR PULMONARY EDEMA. LUNGS ARE CLEAR. HEART IS NOT SIGNIFICANTLY ENLARGED. MEDIASTINAL SILHOUETTE IS UNREMARKABLE. THE VISUALIZED OSSEOUS STRUCTURES ARE INTACT. IMPRESSION: NO ACUTE PULMONARY DISEASE. <Electronically signed by Harrison Shah > 10/27/20 1100
[2020-10-27] MEDS ORDERED: ATOR1TAB21 PO (12:23)
[2020-10-27] MEDS ORDERED: LISI10TA22 PO (12:23)
[2020-10-27] MEDS ORDERED: COMBAER6 INH (12:23)
[2020-10-27] MEDS ORDERED: CARV3.12 PO (12:23)
[2020-10-27] MEDS ORDERED: NICO14PA TD (12:23)
[2020-10-27] MEDS ORDERED: PRED10TA2 PO (12:23)
[2020-10-27 12:53] VITALS: O2SAT 88
--- NOTE | 2020-10-27 13:28 | REP ---
INDICATION: SOB. COMPARISON: 10/27/2020, 10:54 a.m. TECHNIQUE: SINGLE PORTABLE AP VIEW OF THE CHEST WAS PERFORMED. FINDINGS: THERE IS NO ACUTE INFILTRATE OR PULMONARY EDEMA. LUNGS ARE CLEAR. HEART IS NOT SIGNIFICANTLY ENLARGED. MEDIASTINAL SILHOUETTE IS UNREMARKABLE. THE VISUALIZED OSSEOUS STRUCTURES ARE INTACT. IMPRESSION: NO ACUTE PULMONARY DISEASE. <Electronically signed by Harriosn Shah > 10/27/20 [id number]
--- NOTE | 2020-10-27 13:28 | REP ---
INDICATION: Abdominal pain. COMPARISON: None. TECHNIQUE: Portable AP abdomen and pelvis. FINDINGS: There is no evidence of bowel obstruction. Moderate fecal material seen scattered throughout the colon. No dilated small bowel loops are seen. No abnormal calcifications are seen. There are mild degenerative changes of the spine. IMPRESSION: Moderate fecal material in the colon. No radiographic evidence of bowel obstruction. <Electronically signed by Harrison Shah > 10/27/20 [id number]
[2020-10-27 13:39] LABS: AMYLASE 48 U/L (25-115); LIPASE 194 U/L (73-393)
[2020-10-27 13:46] LABS: CK-MB VALUE MASS 1.6 NG/ML (<3.6); MB/CK RELATIVE INDEX 1.93 (< OR =4); TROPONIN I 0.03 NG/ML (< 0.10)
[2020-10-27 14:00] VITALS: BP 132/76
[2020-10-27] MEDS ORDERED: FURO40TA2 PO (14:16)
[2020-10-27] MEDS ORDERED: METF-839 PO (15:49)
--- NOTE | 2020-10-27 15:51 | DS.PDOC ---
Discharge Summary General Date of Admission Oct 24, 2020 at 14:57 Date of Discharge 10/27/2020 Discharge Summary PROCEDURES PERFORMED DURING STAY: [None]. ADMITTING DIAGNOSES / DISCHARGE DIAGNOSES: Shortness of breath / acute hypoxic respiratory failure - likely 2/2 exacerbation of COPD and likely 2/2 decompensated CHF s/p Upper abdominal pain HTN Leukocytosis NIDDM2 Nicotine dependence s/p Transaminitis - likely 2/2 hepatic congestion Opiate use disorder DVT Prophylaxis COMPLICATIONS/CHIEF COMPLAINT: Shortness Of Breath. HISTORY OF PRESENT ILLNESS: Patient is a 55 year old male with a PMHx of HTN, Opiate abuse who resented to the emergency room with complaints of shortness of breath. Patient was noted to have lower extremity edema, wheezing, auscultation. He was admitted to the hospitalist service for further evaluation and treatment for suspected COPD/CHF exacerbation. Seen and examined at the bedside multiple times today. Currently he is feeling well. Reports that his breathing is at baseline however, he will continue to require 2 L of nasal oxygen. Patient denies any chest pain, palpitations, nausea, vomiting. He did report some abdominal pain earlier that has now res olved after having a large bowel movement. Denies any urinary discomfort HOSPITAL COURSE: Shortness of breath / acute hypoxic respiratory failure - likely 2/2 exacerbation of COPD and likely 2/2 decompensated CHF - Currently patient reports that his breathing is doing better - Physical does not reveal any wheezing on auscultation; lower extremities have an improvement of edema - Imaging appreciated below - Continue with inhaled therapy as ordered - Will provide prednisone taper on discharge - Will provide Furosemide on discharge - Patient has been advised to follow-up with primary care provider within the next 7 days - Patient is cleared own safety evaluation for discharge home on oxygen s/p Upper abdominal pain - Patient has not experience any nausea, vomiting - This has resolved after patient is a large bowel movement - Troponins, amylase, lipase and lactic acid are normal - Imaging reviewed HTN - BP well controlled - c/w Carvedilol / Lisinopril Leukocytosis - likely 2/2 corticosteroid therapy - No evidence of infection - No antibiotics indicated at this time NIDDM2 - HBA1c 6.5 - c/w Atorvastatin - Will start Metformin on discharge Nicotine dependence - Patient has been counseled about nicotine abstinence - c/w Nicotine patch s/p Transaminitis - likely 2/2 hepatic congestion - Hepatitis profile is negative Opiate use disorder - c/w Suboxone based on outpatient regimen DVT Prophylaxis - c/w Lovenox DISCHARGE MEDICATIONS: Please see below. ALLERGIES: Please see below. PHYSICAL EXAMINATION ON DISCHARGE: Vitals (See below) General: Lying in bed, appears comfortable, AAOx3 HEENT: NC, AT CVS: +S1S2 Lungs: Fair air entry b/l, there does not appear to be any wheezing / rhonchi / rales Abdomen: Soft, non-distended, NT Extremities: Trace LE edema, - Calf tenderness LABORATORY DATA: Please see below. IMAGING: CXR 10/24: No acute cardiopulmonary process appreciated. CT angio chest 10/24: There are no pulmonary emboli. There are no infiltrates, effusions, nodules or masses. No adenopathy. The gallbladder and pancreas are not imaged. There are no adrenal nodules or masses. Vascular US 10/24: No evidence of deep venous thrombosis of the bilateral lower extremity femoral popliteal venous system. CXR 10/27: No acute pulmonary disease. CXR 10/28: No acute pulmonary disease. Abdominal XR 10/28: Moderate fecal material in the colon. No radiographic evidence of bowel obstruction. ACTIVITY: [As tolerated]. DISCHARGE PLAN: Follow up with PCP within 7 days Remain compliant with treatment plan and medications Return to the ER if you experience any problems DISPOSITION: Home with services DISCHARGE CONDITION: [Stable]. TIME SPENT ON DISCHARGE: 35 minutes. Vital Signs/I&Os Vital Signs Date Time Temp Pulse Resp B/P (MAP) Pulse Ox O2 Delivery O2 Flow Rate FiO2 10/27/20 14:00 96.9 84 20 132/76 (94) 90 Nasal Cannula 2.0 I&O- Last 24 Hours up to 6 AM 10/27/20 06:00 Intake Total 1080 ml Output Total 400 ml Balance 680 ml Laboratory Data Labs 24H Laboratory Tests 2 10/27/20 05:34: Immature Granulocyte % (Auto) 0.3, Neutrophils (%) (Auto) 58.8, Lymphocytes (%) (Auto) 31.9, Monocytes (%) (Auto) 7.3, Eosinophils (%) (Auto) 1.0, Basophils (%) (Auto) 0.7, Neutrophils # (Auto) 6.2, Lymphocytes # (Auto) 3.4, Monocytes # (Auto) 0.8, Eosinophils # (Auto) 0.1, Basophils # (Auto) 0.1, Nucleated Red Blood Cells % (auto) 0.0, Anion Gap , Glomerular Filtration Rate > 60.0, Calcium Level 9.3, Total Bilirubin 0.4#, Aspartate Amino Transf (AST/SGOT) 31, Alanine Aminotransferase (ALT/SGPT) 70, Alkaline Phosphatase 70, Total Protein 7.9, Albumin 3.4, Albumin/Globulin Ratio 0.8 10/27/20 13:01: Bedside Glucose (Misc Panel) 141H 10/27/20 13:16: Lactic Acid Level 1.7, Total Creatine Kinase 83, Creatine Kinase MB 1.6, Creatine Kinase MB Relative Index 1.93, Troponin I 0.03, Amylase Level 48, Lipase 194 CBC/BMP Laboratory Tests 10/27/20 05:34 FSBS Laboratory Tests Test 10/27/20 13:01 Range/Units Bedside Glucose (Misc Panel) 141 70-105 MG/DL Microbiology Microbiology 10/24/20 Blood Culture - Preliminary, Resulted No Growth after 72 hours. All specime... 10/24/20 Respiratory Virus Panel (PCR) (RENEE) - Final, Complete 10/24/20 Blood Culture - Preliminary, Resulted No Growth after 72 hours. All specime... Discharge Medications Scheduled Atorvastatin Calcium (Atorvastatin Calcium) 20 Mg Tablet, 40 MG PO DAILY Buprenorphine HCl/Naloxone HCl (Suboxone 8 mg-2 mg Sl Film) 1 Mis Mis, 1 FILM SL BID, (Reported) Carvedilol (Carvedilol) 3.125 Mg Tablet, 3.125 MG PO BID Furosemide (Furosemide) 40 Mg Tablet, 1 TAB PO DAILY Ipratropium/Albuterol Sulfate (Combivent Respimat 20-100 Mcg) 4 Gm Mist.inhal, 2 PUFF INH TID Lisinopril (Lisinopril) 10 Mg Tablet, 10 MG PO DAILY Nicotine (Nicotine Patch) 14 Mg Patch.td24, 1 PATCH TD DAILY Prednisone (Prednisone) 10 Mg Tablet, 10 MG PO TAPER Take 4 tabs daily x 3 days, then 3 tabs daily x 3 days, then 2 tabs daily x 3 days, then 1 tab daily x 3 days and stop Allergies Coded Allergies: No Known Allergies (Unverified , 03/10/18) DAVON BASS MD Oct 27, 2020 15:51
[2020-10-27 18:02] VITALS: BP 132/76
--- NOTE | 2020-10-27 20:58 | ECGEPIP ---
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
--- NOTE | 2020-10-28 11:27 | ECHO ---
DATE OF PROCEDURE: 10/25/2020 Age: 55 Gender: Male REFERRING PHYSICIAN: Luis Hussein M.D. PATIENT LOCATION: Room 4206. REASON FOR STUDY: Heart failure, unspecified. 2D MEASUREMENTS: IVS 1.9 cm LV 2.8 cm LVPW 1.9 cm LA 4.0 cm Aorta 2.9 cm IVC 1.8 cm DOPPLER MEASUREMENT Peak velocity across the aortic valve 2.2 m/s Peak velocity across the LVOT 2.1 m/s Peak gradient across the aortic valve 19 mmHg Mean gradient across the aortic valve 12 mmHg Mitral E 1.0 Mitral A 1.2 with a ratio of 0.8 Maximum tricuspid valve velocity 2.1 m/s 2D COMMENTS: 1. Normal left ventricular size with moderately increased left ventricle wall thickness. Left ventricular systolic function is normal, estimated at 60% to 65%. 2. Borderline enlarged left atrium. Normal right atrium and right ventricle. 3. The atrial septum appeared to be normal without evidence of defect or shunt. 4. Normal aortic root. No pericardial effusion seen. 5. Mildly calcified aortic valve with normal leaflet excursion. Normal mitral valve and tricuspid valve. The pulmonic valve and proximal pulmonary artery branches were not well visualized. 6. The inferior vena cava is normal in size, central venous pressure is most likely normal. DOPPLER: Detects trace aortic regurgitation, trace mitral regurgitation, trace tricuspid regurgitation. The calculated pulmonary artery systolic pressure was normal. IMPRESSION: 1. Normal global left ventricular systolic function with moderate concentric left ventricular hypertrophy. There were some findings of left ventricular diastolic dysfunction manifested by abnormal relaxation. Could not rule out underlying hypertrophic cardiomyopathy, the peak velocity across the LVOT was elevated at 2.1 m/s. This is consistent with a gradient of about 18 mmHg. 2. Mildly calcified aortic valve with trace mitral regurgitation and probably mild aortic stenosis. 3. Trace mitral regurgitation with a borderline enlarged left atrium. 4. Trace tricuspid regurgitation with a normal pulmonary artery systolic pressure. [facility]
== END 2020-10-27 18:10 | disposition home or self-care (01) | DRG 194 ==
LOC: M ED 09:14 → M ED INP 14:57 → ENRESERV 15:24 → M MSPAV 15:55
PROVIDERS: ADMIT Internal Medicine; ATTEND Internal Medicine
DX: I11.0 Hypertensive heart disease with heart failure (principal); J96.01 Acute respiratory failure with hypoxia; I27.20 Pulmonary hypertension, unspecified; E11.9 Type 2 diabetes mellitus without complications; D72.829 Elevated white blood cell count, unspecified; J44.1 Chronic obstructive pulmonary disease with (acute) exacerbation; I50.9 Heart failure, unspecified; F17.210 Nicotine dependence, cigarettes, uncomplicated; R22.43 Localized swelling, mass and lump, lower limb, bilateral; E66.9 Obesity, unspecified; R74.01 Elevation of levels of liver transaminase levels; F11.11 Opioid abuse, in remission; Z79.899 Other long term (current) drug therapy; Z91.14 Patient's other noncompliance with medication regimen; Z68.41 Body mass index [BMI] 40.0-44.9, adult

== ENCOUNTER → 2021-01-06 | Outpatient (CLI) | payer OTHER ==
[~2021-01-06] MED LIST changes: +ATOR1TAB21 PO; +CARV3.12 PO; +COMBAER6 INH; +FURO40TA2 PO; +LISI10TA22 PO; +METF-839 PO; +NICO14PA TD; +PRED10TA2 PO
--- NOTE | 2021-01-06 13:30 | PFTRPT ---
Site: [facility], [address] [place] [address], [address] ID: [id number] Name: CHIKI SOFIA Visit Date: 01/06/2021 Second ID: [id number] Referring Doctor: BJ LEVY DO Reviewing Doctor: Ishan Rainey MD Client Liaison: Venessa VITALE RRT Age: 55 : 1965 Sex: Male Race: Height: 70.00 Inches Weight: 277.00 Lbs BSA: 2.40 Order IDs: [id number] Requested Test(s): <RESP-PFT.PFT B/A> Diagnosis: J44.9 test meet the ATS standards for acceptability and repeatability. Pt was given four puffs of albuterol for post bronchodilator. The results of this test appear to be valid, although the ATS standard for "end of test" was not met. Review Status: Not Reviewed Pre-Bronch Post-Bronch Pred Actual %Pred Actual %Chng SPIROMETRY FVC (L) 4.96 2.77 55 3.20 15 FEV1 (L) 3.82 1.92 50 2.10 9 FEV1/FVC (%) 77 69 89 66 -5 FEF 25% (L/sec) 8.63 3.31 38 4.06 22 FEF 50% (L/sec) 5.57 1.62 29 1.87 15 FEF 75% (L/sec) 1.80 0.66 36 0.84 28 FEF 25-75% (L/sec) 3.30 1.32 39 1.68 27 FEF Max (L/sec) 9.64 4.62 47 5.12 10 FIVC (L) 2.75 3.09 12 FIF 50% (L/sec) 4.89 4.29 87 6.01 39 FIF Max (L/sec) 4.39 6.01 36 MVV (L/min) 148 49 33 Expiratory Time (sec) 4.61 5.05 9 Back Extrap Vol (L) 0.15 0.06 -58 Time To FEFmax (sec) 0.095 0.079 -16 LUNG VOLUMES SVC (L) 4.86 3.58 73 IC (L) 3.39 2.30 67 ERV (L) 1.47 1.28 87 TGV (L) 3.58 4.43 123 RV (Pleth) (L) 2.11 3.15 149 TLC (Pleth) (L) 6.97 6.73 96 RV/TLC (Pleth) (%) 31 47 150 DIFFUSION DLCOunc (ml/min/mmHg) 29.91 27.58 92 DL/VA (ml/min/mmHg/L) 4.29 4.94 115 VA (L) 6.97 5.58 80 BHT (sec) 10.33 IVC (L) 3.27 TLC (SB) (L) 5.73 AIRWAYS RESISTANCE Raw (cmH2O/L/s) 1.45 1.68 115 Gaw (L/s/cmH2O) 1.03 0.60 58 sRaw (cmH2O*s) 4.76 8.86 186 sGaw (1/cmH2O*s) 0.20 0.11 56
== END ==
LOC: M CARPUL 12:46
PROVIDERS: ATTEND Family Medicine
DX: J44.9 Chronic obstructive pulmonary disease, unspecified (principal)

== ENCOUNTER 2021-05-22 09:16 | Inpatient (IN) | payer OTHER ==
[~2021-05-22] VITALS: Ht 177.8 cm; Wt 124.8 kg
[2021-05-22] MEDS: PANTOPRAZOLE 40MG TAB (PROTONIX) PO SCH (09:00)
[~2021-05-22 09:16] MED LIST changes: -LISI2.5T2 PO; +LISI2.5T9 PO
[2021-05-22] MEDS ORDERED: predniSONE 20 MG TAB PO ONE (09:35)
[2021-05-22 09:53] LABS: VENOUS BASE EXCESS 4.9 (-2.0-2.0); VENOUS HCO3 36.4 MEQ/L (23.0-27.0); VENOUS O2 SATURATION 87.9 % (60.0-80.0); VENOUS PARTIAL PRESSURE CO2 87.2 mmHg (38.0-50.0); VENOUS PH 7.238 UNITS (7.330-7.430); VENOUS STANDARD HCO3 28.5 MEQ/L
--- NOTE | 2021-05-22 10:03 | REP ---
INDICATION: DYSPNEA/COUGH. COMPARISON: 10/27/2020. TECHNIQUE: Single portable AP view of the chest was performed. FINDINGS: There is no acute infiltrate or pulmonary edema. Lungs are clear. The heart is not significantly enlarged. The mediastinal silhouette is unremarkable. The visualized osseous structures are intact. IMPRESSION: No acute pulmonary disease. <Electronically signed by Harrison Shah > 05/22/21 0959
[2021-05-22 10:09] LABS: BASO # 0.1 10^3/uL (0.0-0.2); BASO % 0.8 % (0.0-1.0); EOS # 0.1 10^3/uL (0.0-0.5); EOS % 1.5 % (0.0-3.0); LYMPH # 1.7 10^3/uL (1.5-5.0); LYMPH % 17.4 % (24.0-44.0); MEAN CORPUSCULAR HEMOGLOBIN 30.8 pg (27.0-33.0); MEAN CORPUSCULAR HGB CONC 30.2 g/dl (32.0-36.5); MEAN CORPUSCULAR VOLUME 101.9 fl (80.0-96.0); MONO # 0.6 10^3/uL (0.0-0.8); MONO % 6.7 % (2.0-8.0); NEUTROPHILS % 73.1 % (36.0-66.0); PLATELET COUNT, AUTOMATED 224 10^3/uL (150-450); WHITE BLOOD COUNT 9.6 10^3/uL (4.0-10.0)
[2021-05-22] MEDS: COMBIVENT RESPIMAT 100-20MCG INHALER 4GM INH PRN ×3 (10:19→11:59)
--- OUTSIDE RECORDS SUMMARY | 2021-05-22 10:23 | CCD ---
Author Author [facility] Organization [facility] Address Unknown Phone Unavailable Care Team Providers Care Fourth Mate Name Role Phone Raúl, Monroe Unavailable PROBLEMS Type Condition ICD9-CM Code GID50-RO Code Onset Dates Condition S tatus W/U Status Risk SNOMED Code Notes Problem Cigarette nicotine dependence without complication F17.210 Active confirmed 18365677 Problem Chronic diastolic heart failure I50.32 Active confi rmed 961193795 Problem Current smoker F17.200 Active confirmed 7717 6002 Problem Obstructive sleep apnea G47.33 Active confirmed 11271675 Problem Chronic obstructive pulmonary disease, unspecified COPD ty pe J44.9 Active confirmed 41843564 Problem Essential hypertension I10 Active confirmed 21645210 Problem Pure hypercholesterolemia E78.00 Active confirmed 524071492 Problem Type 2 diabetes mellitus wit hout complication, without long-term current use of insulin E11.9 Active confirmed 238152116 ALLERGIES No Known Allergies ENCOUNTERS from 1965 to 2021-04-10 Encounter Location Date Provider Diagnosis [address] [phone] [place] [address] Mar, Monroe Olsen IMMUNIZATIONS No Information SOCIAL HISTORY Tobacco Use: Social History Observation Description Date Details (start date - stop date) Current Smoker Sex Assigned At : Social History Observation Description Sex Assigned At Unknown Education: Question Answer Notes Level of Education: Not finished High School Language: Question Answer Notes Languages spoken: Guinean Holiness: Question Answer Notes Holiness 33 None Sexual Hx: Question Answer Notes Had sex in the last 12 months (vaginal, oral, or anal)? No Have you ever had an STD? No Alcohol Screening: Question Answer Notes Did you have a drink containing alcohol in the past year? No Points 0 Interpretation Negative Tobacco Use: Question Answer Notes Are you a: current smoker How many cigarettes a day do you smoke? 6-10 Are you interested in quitting? Ready to quit REASON FOR REFERRAL No Information VITAL SIGNS No information MEDICATIONS Medication SIG (Take, Route, Frequency, Duration) Notes Start Da te End Date Status metFORMIN HCl 500 MG 1 tablet with a meal Orally Twice a day for 30 d ays Active Furosemide 40 MG 1 tablet Orally Once a day for 30 days Active Lisinopril 10 MG 1 tablet Orally Once a day for 30 days Active Suboxone 8-2 MG 1 1/2 film under the tongue and allow to dissolve Sublingual Twice a day Active Glucometer as directed once a day for 999 days November, Active Ipratropium-Albuterol 20-100 MCG/ACT 1 puff as needed Inhalation every 6 hrs for 30 days Not-Taking Combivent Respimat 20-100 MCG/ACT 1 puff as needed Inh alation every 6 hrs for 30 days Active Nicoderm CQ 14 MG/24HR 1 patch to skin Transdermal Once a day fo r 30 day(s) November, Not-Taking Lancets Thin - as directed once a day for 30 days November, Active Nicotine 14 MG/24HR 1 patch to skin Transdermal Once a day for 30 day (s) Not-Taking Test Strips - as directed once a day for 30 days 12 December, 021 Active Incruse Ellipta 62.5 MCG/INH 1 puff Inhalation Once a day for 30 days November, Not-Taking Carvedilol 3.125 MG 1 tablet with food Orally Twice a day for 30 days Active Atorvastatin Calcium 20 MG 1 tablet Orally Once a day for 30 day(s) Active PROCEDURES No Information RESULTS No Results REASON FOR VISIT Ultrasound appointment MEDICAL (GENERAL) HISTORY Type Description Date Medical History COPD Medical History DM : A1c less than 7 Medical History High B/P goal blood pressure less than 1 40/90 Medical History PFT 01/06/21 IM PRESSION: At least mild obstructive ventilatory impairment with underlying air trapping. No bronchodilator response Surgical History No Surgical history information Hospitalization History COPD/DM 10/2020 Goals Section No Information Health Concerns No Information MEDICAL EQUIPMENT No Information MENTAL STATUS No Information FUNCTIONAL STATUS No Information ASSESSMENTS No Information PLAN OF TREATMENT Next Appt Details Provider Name:Monroe Olsen, 2020-1 0-22 03:00:00 PM, [address] [facility], , [place], [address], Insurance Providers Payer Name Payer Address Payer Phone Insured Name Patient Relati onship to Insured Coverage Start Date Coverage End Date [facility] [employer] [facility] [address] [facility] [id number] CHIKI SOFIA self
--- OUTSIDE RECORDS SUMMARY | 2021-05-22 10:23 | CCD ---
Author Author [facility] Organization [facility] Address Unknown Phone Unavailable Care Team Providers Care Lug Loader Name Role Phone Jason Lopezjohannashanell Unavailable PROBLEMS Type Condition ICD9-CM Code YYY44-RD Code Onset Dates Condition S tatus W/U Status Risk SNOMED Code Notes Problem Cigarette nicotine dependence without complication F17.210 Active confirmed 26971460 Problem Chronic diastolic heart failure I50.32 Active confi rmed 802559908 Problem Current smoker F17.200 Active confirmed 7717 6002 Problem Obstructive sleep apnea G47.33 Active confirmed 82507707 Problem Chronic obstructive pulmonary disease, unspecified COPD ty pe J44.9 Active confirmed 89879126 Problem Essential hypertension I10 Active confirmed 61434081 Problem Pure hypercholesterolemia E78.00 Active confirmed 174809994 Problem Type 2 diabetes mellitus wit hout complication, without long-term current use of insulin E11.9 Active confirmed [id number] ALLERGIES No Known Allergies ENCOUNTERS from 1967 to 2021-03-11 Encounter Location Date Provider Diagnosis [address] [phone] [place] [address] Feb, Shanmukha Perabattula IMMUNIZATIONS No Information SOCIAL HISTORY Tobacco Use: Social History Observation Description Date Details (start date - stop date) Current Smoker Sex Assigned At : Social History Observation Description Sex Assigned At Unknown Education: Question Answer Notes Level of Education: Not finished High School Language: Question Answer Notes Languages spoken: Icelandic Baptism: Question Answer Notes Baptism 35 None Sexual Hx: Question Answer Notes [...] Notes Start Da te End Date Status Test Strips - as directed once a day for 30 days 12 December, 2 Active Carvedilol 3.125 MG 1 tablet with food Orally Twice a day for 30 days Active Combivent Respimat 20-100 MCG/ACT 1 puff as needed Inh alation every 6 hrs for 30 days Active Lisinopril 10 MG 1 tablet Orally Once a day for 30 days Active Ipratropium-Albuterol 20-100 MCG/ACT 1 puff as needed Inhalation every 6 hrs for 30 days Active Lancets Thin - as directed once a day for 30 days November, Active Atorvastatin Calcium 20 MG 1 tablet Orally Once a day for 30 day(s) Active Furosemide 40 MG 1 tablet Orally Once a day for 30 days Active Nicoderm CQ 14 MG/24HR 1 patch to skin Transdermal Once a day fo r 30 day(s) November, Active metFORMIN HCl 500 MG 1 tablet with a meal Orally Twice a day for 30 d ays Active Suboxone 8-2 MG 1 1/2 film under the tongue and allow to dissolve Sublingual Twice a day Active Nicotine 14 MG/24HR 1 patch to skin Transdermal Once a day for 30 day (s) Active Glucometer as directed once a day for 999 days November, Active Incruse Ellipta 62.5 MCG/INH 1 puff Inhalation Once a day for 30 days November, Active PROCEDURES No Information RESULTS No Results REASON FOR VISIT MRI lumbar spine: denied MEDICAL (GENERAL) HISTORY Type Description Date Medical [...] Information ASSESSMENTS No Information PLAN OF TREATMENT Medication Medication Name Sig Start Date Stop Date Ipratropium-Albuterol 20-100 MCG/ACT 1 puff as needed Inhalation every 6 hrs for 30 days Nicotine 14 MG/24HR 1 patch to skin Transdermal Once a day for 3 0 day(s) Lisinopril 10 MG 1 tablet Orally Once a day for 30 days Combivent Respimat 20-100 MCG/ACT 1 puff as needed Inh alation every 6 hrs for 30 days Furosemide 40 MG 1 tablet Orally Once a day for 30 days Carvedilol 3.125 MG 1 tablet with food Orally Twice a day for 30 days metFORMIN HCl 500 MG 1 tablet with a meal Orally Twice a day for 30 days Next Appt Details Provider Name:Monroeaguila Olsen, 03-31 11:00:00 AM, [address] [facility], , [place], [address], Insurance Providers Payer Name Payer Address Payer Phone Insured Name Patient Relati onship to Insured Coverage Start Date Coverage End Date [facility] COMMUNITY PLAN [facility] [address] [facility] [phone] CHIKI SOFIA self
--- OUTSIDE RECORDS SUMMARY | 2021-05-22 10:23 | CCD ---
Author Author [facility] Organization [facility] Address Unknown Phone Unavailable Care Team Providers Care Prenatal Genetic Counselor Name Role Phone Jason Lopezjohannashanell Unavailable PROBLEMS Type Condition ICD9-CM Code EUT63-YH Code Onset Dates Condition S tatus W/U Status Risk SNOMED Code Notes Problem Cigarette nicotine dependence without complication F17.210 Active confirmed 03481051 Problem Chronic diastolic heart failure I50.32 Active confi rmed 326477083 Problem Current smoker F17.200 Active confirmed 7717 6002 Problem Obstructive sleep apnea G47.33 Active confirmed 88374431 Problem Chronic obstructive pulmonary disease, unspecified COPD ty pe J44.9 Active confirmed 80387160 Problem Essential hypertension I10 Active confirmed 05802636 Problem Pure hypercholesterolemia E78.00 Active confirmed 246185282 Problem Type 2 diabetes mellitus wit hout complication, without long-term current use of insulin E11.9 Active confirmed [id number] ALLERGIES No Known Allergies ENCOUNTERS from 1965 to 2021-02-24 Encounter Location Date Provider Diagnosis [address] [phone] [place] [address] Feb, Shanmukha Perabattula IMMUNIZATIONS No Information SOCIAL HISTORY Tobacco Use: Social History Observation Description Date Details (start date - stop date) Current Smoker Sex Assigned At : Social History Observation Description Sex Assigned At Unknown Education: Question Answer Notes Level of Education: Not finished High School Language: Question Answer Notes Languages spoken: South African Caodaism: Question Answer Notes Caodaism 33 None Sexual Hx: Question Answer Notes [...] Information RESULTS No Results REASON FOR VISIT N/S MEDICAL (GENERAL) HISTORY Type Description Date Medical [...] Orally Twice a day for 30 days Insurance Providers Payer Name Payer Address Payer Phone Insured Name Patient Relati onship to Insured Coverage Start Date Coverage End Date [facility] COMMUNITY PLAN [facility] [address] [facility] [phone] CHIKI SOFIA self
--- OUTSIDE RECORDS SUMMARY | 2021-05-22 10:23 | CCD ---
Author Author [facility] Organization [facility] Address Unknown Phone Unavailable Care Team Providers Care Jewel Bearing Facer Name Role Phone Sage Lopez Unavailable PROBLEMS Type Condition ICD9-CM Code IGL40-QD Code Onset Dates Condition S tatus W/U Status Risk SNOMED Code Notes Problem Cigarette nicotine dependence without complication F17.210 Active confirmed 92822765 Problem Chronic diastolic heart failure I50.32 Active confi rmed 903745189 Problem Current smoker F17.200 Active confirmed 7717 6002 Problem Obstructive sleep apnea G47.33 Active confirmed 19257586 Problem Chronic obstructive pulmonary disease, unspecified COPD ty pe J44.9 Active confirmed 42791645 Problem Essential hypertension I10 Active confirmed 13683955 Problem Pure hypercholesterolemia E78.00 Active confirmed 077224369 Problem Type 2 diabetes mellitus wit hout complication, without long-term current use of insulin E11.9 Active confirmed 302123733 ALLERGIES No Known Allergies ENCOUNTERS from 1965 to 2021-02-24 Encounter Location Date Provider Diagnosis [facility] Res[place] [address] [facility] [address] [phone] [place] [address] Feb, Sage Lopez Type 2 diabetes me llitus without complication, without long-term current use of insulin E11.9 and Essential hypertension I10 IMMUNIZATIONS No Information SOCIAL HISTORY Tobacco Use: Social History Observation Description Date Details (start date - stop date) Current Smoker Sex Assigned At : Social History Observation Description Sex Assigned At Unknown Education: Question Answer Notes Level of Education: Not finished High School Language: Question Answer Notes Languages spoken: Mozambican Rastafarian: Question Answer Notes Rastafarian 33 None Sexual Hx: Question Answer Notes [...] for 30 days 12 December, 021 Active Carvedilol 3.125 MG 1 tablet with [...] Information RESULTS No Results REASON FOR VISIT No Information MEDICAL (GENERAL) HISTORY Type Description Date Medical [...] No Information FUNCTIONAL STATUS No Information ASSESSMENTS Encounter Date Diagnosis Assessment Notes Treatment Notes Treatm ent Clinical Notes Feb, Type 2 diabetes mellitus wit hout complication, without long-term current use of insulin (ICD-10 - E11.9) As i am seeing aptient today, he will need labs done prior to the appoinment. Feb, Essential hypertension (ICD-10 - I10) PLAN OF TREATMENT Medication Medication Name Sig [...] Orally Twice a day for 30 days Treatment Notes Assessment Notes Clinical Notes Type 2 diabetes mellitus without complic ation, without long-term current use of insulin As i am seeing aptient today , he will need labs done prior to the appoinment. Treatment Notes Test Name Order Date HEMOGLOBIN A1c 2021-02-21 LIPID PANEL (CARDIAC RISK) 2021-02-21 Insurance Providers Payer Name Payer Address Payer Phone Insured Name Patient Relati onship to Insured Coverage Start Date Coverage End Date PENDING SALE [facility] [address] [facility] [phone] CHIKI OSFIA self
--- OUTSIDE RECORDS SUMMARY | 2021-05-22 10:23 | CCD ---
Author Author [facility] Organization [facility] Address Unknown Phone Unavailable Care Team Providers Care Zig Zag Stitcher Name Role Phone Raúl, Monroe Unavailable PROBLEMS Type Condition ICD9-CM Code ZHH60-YG Code Onset Dates Condition S tatus W/U Status Risk SNOMED Code Notes Problem Cigarette nicotine dependence without complication F17.210 Active confirmed 49182584 Problem Chronic diastolic heart failure I50.32 Active confi rmed 357933098 Problem Current smoker F17.200 Active confirmed 7717 6002 Problem Obstructive sleep apnea G47.33 Active confirmed 24291290 Problem Chronic obstructive pulmonary disease, unspecified COPD ty pe J44.9 Active confirmed 31603475 Problem Essential hypertension I10 Active confirmed 80326392 Problem Pure hypercholesterolemia E78.00 Active confirmed 956691402 Problem Type 2 diabetes mellitus wit hout complication, without long-term current use of insulin E11.9 Active confirmed [id number] ALLERGIES No Known Allergies ENCOUNTERS from 1967 to 2021-05-05 Encounter Location Date Provider Diagnosis [facility] Resident [address] [facility] [address] [phone] [place] [address] 13 Mar, 2021 Monroe Olsen Bilateral leg weakne ss R29.898 IMMUNIZATIONS No Information SOCIAL HISTORY Tobacco Use: Social History Observation Description Date Details (start date - stop date) Current Smoker Sex Assigned At : Social History Observation Description Sex Assigned At Unknown Education: Question Answer Notes Level of Education: Not finished High School Language: Question Answer Notes Languages spoken: Polish Presybeterian: Question Answer Notes Presybeterian 33 None Sexual Hx: Question Answer Notes [...] REASON FOR REFERRAL No Information VITAL SIGNS Weight 284.0 lbs Mar, Weight-kg 128.82 kg Mar, Height 70 in Mar, BMI 40.75 kg/m2 Mar, Heart Rate 107 /min Mar, Respiratory Rate 18 /min Mar, Temperature 96.7 degrees Fahrenheit Mar, Oximetry 94 Mar, Blood pressure systolic 140 mm Hg Mar, Blood pressure diastolic 80 mm Hg Mar, MEDICATIONS Medication SIG (Take, Route, Frequency, Duration) [...] Information RESULTS No Results REASON FOR VISIT follow up MEDICAL (GENERAL) HISTORY Type Description Date Medical [...] Notes Treatment Notes Treatm ent Clinical Notes Mar, Bilateral leg weakness (ICD-10 - R29.898) Bilateral arterial ultrasound has been ordered in order to understand ABUNDIO. In office ankle-brachial index was unable to be established. Patient denies any acute symptoms requiring immediate care. Patient was made aware that if any symptoms worsened and/or started to include tingling and numbness he was to report for immediate medical care. Patient verbalized understanding. PLAN OF TREATMENT Treatment Notes Assessment Notes Clinical Notes Bilateral leg weakness Bilateral arteria l ultrasound has been ordered in order to understand ABUNDIO. In office ankle-brachial index was unable to be established. Patient denies any acute symptoms requiring immediate care. Patient was made aware that if any symptoms worsened and/or started to include tingling and numbness he was to report for immediate medical care. Patient verbalized understanding. Treatment Notes Test Name Order Date US BILAT LOWER EXTREM ARTERIAL US.ARTLB PLZ or [facility] 07-27-12 Next Appt Details 4 Weeks Reason:Possible peripheral arter ial disease Provider Name:Monroe Olsen, 2020- 03:00:00 PM, [address] [facility], , [place], [address], Follow Up:4 WeeksPossible peripheral arterial disease Insurance Providers Payer Name Payer Address Payer Phone Insured Name Patient Relati onship to Insured Coverage Start Date Coverage End Date [facility] [address] [facility] [id number] CHIKI SOFIA self
--- OUTSIDE RECORDS SUMMARY | 2021-05-22 10:24 | CCD ---
Author Author [facility] Address Unknown Phone Unavailable Support Name Relationship Address Phone NADER WAGONER Next Of Kin [address] [place] [address] UE Next Of Kin Unknown Unavailable BRI SOFIA Next Of Kin [address] [place] [address] NADER WAGONER ECON Unknown Unavailable Re-disclosure Warning The records that you are about to access may contain information from federally-assisted alcohol or drug abuse programs. If such information is present, then the following federally mandated warning applies: This information has been disclosed to you from records protected by federal confidentiality rules (42 CFR part 2). The federal rules prohibit you from making any further disclosure of this information unless further disclosure is expressly permitted by the written consent of the person to whom it pertains or as otherwise permitted by 42 CFR part 2. A general authorization for the release of medical or other information is NOT sufficient for this purpose. The Federal rules restrict any use of the information to criminally investigate or prosecute any alcohol or drug abuse patient.The records that you are about to access may contain highly sensitive health information, the redisclosure of which is protected by Article 27-F of the [facility] Public Health law. If you continue you may have access to information: Regarding HIV / AIDS; Provided by facilities licensed or operated by the [facility] Office of Mental Health; or Provided by the [facility] Office for People With Developmental Disabilities. If such information is present, then the following [facility] mandated warning applies: This information has been disclosed to you from confidential records which are protected by state law. State law prohibits you from making any further disclosure of this information without the specific written consent of the person to whom it pertains, or as otherwise permitted by law. Any unauthorized further disclosure in violation of state law may result in a fine or fci sentence or both. A general authorization for the release of medical or other information is NOT sufficient authorization for further disc losure. Encounters Encounter Providers Location Date Indications Data Source(s ) [place] [address] [facility] [address] 04/09/2021 12:00:00 AM EDT eCW1 ([facility]) [place] [address] [facility] [address] 03/31/2021 12:00:00 AM EDT eCW1 ([facility]) Unknown [address] [facility] [address] 02/21/2021 12:00:00 AM EDT eCW1 ([facility] [place]) [place] [address] [facility] [address] 02/21/2021 12:00:00 AM EDT eCW1 ([facility]) [place] [address] [facility] [address] 02/21/2021 12:00:00 AM EDT eCW1 ([facility]) [place] [address] [facility] [address] 02/07/2021 12:00:00 AM EDT eCW1 ([facility]) [place] [address] [facility] [address] 02/06/2021 12:00:00 AM EDT eCW1 ([facility]) [place] [address] [facility] [address] 01/07/2021 12:00:00 AM EDT eCW1 ([facility]) [place] [address] [facility] [address] 12/12/2020 12:00:00 AM EDT eCW1 ([facility]) [place] [address] [facility] [address] 11/22/2020 12:00:00 AM EDT eCW1 ([facility]) [place] [address] [facility] [address] 11/22/2020 12:00:00 AM EDT eCW1 ([facility]) Medications Medication Brand Name Start Date Product Form Dose Route Admi nistrative Instructions Pharmacy Instructions Status Indications Reaction Description Data Source(s) Test Strips - UNK 12/12/2020 12:00:00 AM EDT acti ve Test Strips - eCW1 ([facility]) Test Strips - UNK 12/12/2020 12:00:00 AM EDT acti ve Test Strips - eCW1 ([facility]) Lancets Thin - Lancets Thin - 12/12/2020 12:00:00 AM EDT active Lancets Thin - eCW1 ([facility]) Lancets Thin - Lancets Thin - 12/12/2020 12:00:00 AM EDT active Lancets Thin - eCW1 ([facility]) Lancets Thin - Lancets Thin - 12/12/2020 12:00:00 AM EDT active Lancets Thin - eCW1 ([facility]) Test Strips - UNK 12/12/2020 12:00:00 AM EDT acti ve Test Strips - eCW1 ([facility]) Glucometer UNK 12/12/2020 12:00:00 AM EDT active Glucometer eCW1 ([facility]) Glucometer UNK 12/12/2020 12:00:00 AM EDT active Glucometer eCW1 ([facility]) Glucometer UNK 12/12/2020 12:00:00 AM EDT active Glucometer eCW1 ([facility]) Test Strips - UNK 12/12/2020 12:00:00 AM EDT acti ve Test Strips - eCW1 ([facility]) Glucometer UNK 12/12/2020 12:00:00 AM EDT active Glucometer eCW1 ([facility]) Glucometer UNK 12/12/2020 12:00:00 AM EDT active Glucometer eCW1 ([facility]) Glucometer UNK 12/12/2020 12:00:00 AM EDT active Glucometer eCW1 ([facility]) Glucometer UNK 12/12/2020 12:00:00 AM EDT active Glucometer eCW1 ([facility]) Lancets Thin - Lancets Thin - 12/12/2020 12:00:00 AM EDT active Lancets Thin - eCW1 ([facility]) Lancets Thin - Lancets Thin - 12/12/2020 12:00:00 AM EDT active Lancets Thin - eCW1 ([facility]) Lancets Thin - Lancets Thin - 12/12/2020 12:00:00 AM EDT active Lancets Thin - eCW1 ([facility]) Test Strips - UNK 12/12/2020 12:00:00 AM EDT acti ve Test Strips - eCW1 ([facility]) Lancets Thin - Lancets Thin - 12/12/2020 12:00:00 AM EDT active Lancets Thin - eCW1 ([facility]) Test Strips - UNK 12/12/2020 12:00:00 AM EDT acti ve Test Strips - eCW1 ([facility]) Test Strips - UNK 12/12/2020 12:00:00 AM EDT acti ve Test Strips - eCW1 ([facility]) Glucometer UNK 12/12/2020 12:00:00 AM EDT active Glucometer eCW1 ([facility]) Glucometer UNK 12/12/2020 12:00:00 AM EDT active Glucometer eCW1 ([facility]) Lancets Thin - Lancets Thin - 12/12/2020 12:00:00 AM EDT active Lancets Thin - eCW1 ([facility]) Lancets Thin - Lancets Thin - 12/12/2020 12:00:00 AM EDT active Lancets Thin - eCW1 ([facility]) Test Strips - UNK 12/12/2020 12:00:00 AM EDT acti ve Test Strips - eCW1 ([facility]) Glucometer UNK 12/12/2020 12:00:00 AM EDT active Glucometer eCW1 ([facility]) Lancets Thin - Lancets Thin - 12/12/2020 12:00:00 AM EDT active Lancets Thin - eCW1 ([facility]) Test Strips - UNK 12/12/2020 12:00:00 AM EDT acti ve Test Strips - eCW1 ([facility]) Test Strips - UNK 12/12/2020 12:00:00 AM EDT acti ve Test Strips - eCW1 ([facility]) 7 ACTUAT umeclidinium 0.0625 MG/ACTUAT D ry Powder Inhaler [Incruse] Incruse Ellipta 62.5 MCG/INH Incruse Ellipta 62.5 MCG/INH 11/25/2020 12:00:00 AM EDT 1.0 {puff} active Incruse Ellipta 62.5 MCG/INH eCW1 ([facility]) 7 ACTUAT umeclidinium 0.0625 MG/ACTUAT D ry Powder Inhaler [Incruse] Incruse Ellipta 62.5 MCG/INH Incruse Ellipta 62.5 MCG/INH 11/25/2020 12:00:00 AM EDT 1.0 {puff} active Incruse Ellipta 62.5 MCG/INH eCW1 ([facility]) 7 ACTUAT umeclidinium 0.0625 MG/ACTUAT D ry Powder Inhaler [Incruse] Incruse Ellipta 62.5 MCG/INH Incruse Ellipta 62.5 MCG/INH 11/25/2020 12:00:00 AM EDT 1.0 {puff} active Incruse Ellipta 62.5 MCG/INH eCW1 ([facility]) 7 ACTUAT umeclidinium 0.0625 MG/ACTUAT D ry Powder Inhaler [Incruse] Incruse Ellipta 62.5 MCG/INH Incruse Ellipta 62.5 MCG/INH 11/25/2020 12:00:00 AM EDT 1.0 {puff} active Incruse Ellipta 62.5 MCG/INH eCW1 ([facility]) 7 ACTUAT umeclidinium 0.0625 MG/ACTUAT D ry Powder Inhaler [Incruse] Incruse Ellipta 62.5 MCG/INH Incruse Ellipta 62.5 MCG/INH 11/25/2020 12:00:00 AM EDT 1.0 {puff} active Incruse Ellipta 62.5 MCG/INH eCW1 ([facility]) 7 ACTUAT umeclidinium 0.0625 MG/ACTUAT D ry Powder Inhaler [Incruse] Incruse Ellipta 62.5 MCG/INH Incruse Ellipta 62.5 MCG/INH 11/25/2020 12:00:00 AM EDT 1.0 {puff} active Incruse Ellipta 62.5 MCG/INH eCW1 ([facility]) 7 ACTUAT umeclidinium 0.0625 MG/ACTUAT D ry Powder Inhaler [Incruse] Incruse Ellipta 62.5 MCG/INH Incruse Ellipta 62.5 MCG/INH 11/25/2020 12:00:00 AM EDT 1.0 {puff} active Incruse Ellipta 62.5 MCG/INH eCW1 ([facility]) 7 ACTUAT umeclidinium 0.0625 MG/ACTUAT D ry Powder Inhaler [Incruse] Incruse Ellipta 62.5 MCG/INH Incruse Ellipta 62.5 MCG/INH 11/25/2020 12:00:00 AM EDT 1.0 {puff} suspended Incruse Ellipta 62. 5 MCG/INH eCW1 ([facility]) 7 ACTUAT umeclidinium 0.0625 MG/ACTUAT D ry Powder Inhaler [Incruse] Incruse Ellipta 62.5 MCG/INH Incruse Ellipta 62.5 MCG/INH 11/25/2020 12:00:00 AM EDT 1.0 {puff} active Incruse Ellipta 62.5 MCG/INH eCW1 ([facility]) 7 ACTUAT umeclidinium 0.0625 MG/ACTUAT D ry Powder Inhaler [Incruse] Incruse Ellipta 62.5 MCG/INH Incruse Ellipta 62.5 MCG/INH 11/25/2020 12:00:00 AM EDT 1.0 {puff} active Incruse Ellipta 62.5 MCG/INH eCW1 ([facility]) 7 ACTUAT umeclidinium 0.0625 MG/ACTUAT D ry Powder Inhaler [Incruse] Incruse Ellipta 62.5 MCG/INH Incruse Ellipta 62.5 MCG/INH 11/25/2020 12:00:00 AM EDT 1.0 {puff} suspended Incruse Ellipta 62. 5 MCG/INH eCW1 ([facility]) 24 HR Nicotine 0.583 MG/HR Transdermal P atch [Nicoderm C-Q] Nicoderm CQ 14 MG/24HR Nicoderm CQ 14 MG/24HR 11/22/2020 12:00:00 AM EDT 1.0 {patch_to_skin} active Nicoderm CQ 14 MG/24 HR eCW1 ([facility]) 24 HR Nicotine 0.583 MG/HR Transdermal P atch [Nicoderm C-Q] Nicoderm CQ 14 MG/24HR Nicoderm CQ 14 MG/24HR 11/22/2020 12:00:00 AM EDT 1.0 {patch_to_skin} active Nicoderm CQ 14 MG/24 HR eCW1 ([facility]) 24 HR Nicotine 0.583 MG/HR Transdermal P atch [Nicoderm C-Q] Nicoderm CQ 14 MG/24HR Nicoderm CQ 14 MG/24HR 11/22/2020 12:00:00 AM EDT 1.0 {patch_to_skin} active Nicoderm CQ 14 MG/24 HR eCW1 ([facility]) 24 HR Nicotine 0.583 MG/HR Transdermal P atch [Nicoderm C-Q] Nicoderm CQ 14 MG/24HR Nicoderm CQ 14 MG/24HR 11/22/2020 12:00:00 AM EDT 1.0 {patch_to_skin} active Nicoderm CQ 14 MG/24 HR eCW1 ([facility]) 24 HR Nicotine 0.583 MG/HR Transdermal P atch [Nicoderm C-Q] Nicoderm CQ 14 MG/24HR Nicoderm CQ 14 MG/24HR 11/22/2020 12:00:00 AM EDT 1.0 {patch_to_skin} active Nicoderm CQ 14 MG/24 HR eCW1 ([facility]) 24 HR Nicotine 0.583 MG/HR Transdermal P atch [Nicoderm C-Q] Nicoderm CQ 14 MG/24HR Nicoderm CQ 14 MG/24HR 11/22/2020 12:00:00 AM EDT 1.0 {patch_to_skin} suspended Nicoderm CQ 14 MG/24 HR eCW1 ([facility]) 24 HR Nicotine 0.583 MG/HR Transdermal P atch [Nicoderm C-Q] Nicoderm CQ 14 MG/24HR Nicoderm CQ 14 MG/24HR 11/22/2020 12:00:00 AM EDT 1.0 {patch_to_skin} suspended Nicoderm CQ 14 MG/24 HR eCW1 ([facility]) 24 HR Nicotine 0.583 MG/HR Transdermal P atch [Nicoderm C-Q] Nicoderm CQ 14 MG/24HR Nicoderm CQ 14 MG/24HR 11/22/2020 12:00:00 AM EDT 1.0 {patch_to_skin} active Nicoderm CQ 14 MG/24 HR eCW1 ([facility]) 24 HR Nicotine 0.583 MG/HR Transdermal P atch [Nicoderm C-Q] Nicoderm CQ 14 MG/24HR Nicoderm CQ 14 MG/24HR 11/22/2020 12:00:00 AM EDT 1.0 {patch_to_skin} active Nicoderm CQ 14 MG/24 HR eCW1 ([facility]) 24 HR Nicotine 0.583 MG/HR Transdermal P atch [Nicoderm C-Q] Nicoderm CQ 14 MG/24HR Nicoderm CQ 14 MG/24HR 11/22/2020 12:00:00 AM EDT 1.0 {patch_to_skin} active Nicoderm CQ 14 MG/24 HR eCW1 ([facility]) 24 HR Nicotine 0.583 MG/HR Transdermal P atch [Nicoderm C-Q] Nicoderm CQ 14 MG/24HR Nicoderm CQ 14 MG/24HR 11/22/2020 12:00:00 AM EDT 1.0 {patch_to_skin} active Nicoderm CQ 14 MG/24 HR eCW1 ([facility]) Insurance Providers Payer name Policy type / Coverage type Policy ID Covered libertarian ID Covered libertarian's relationship to carmichael Policy Carmichael Plan Information [facility] [id number] SP [id number] [facility] COMMUNITY PLAN [facility] [id number] SP [id number] [facility] O [id number] S [id number] [facility] COMMUNITY PLAN [facility] [id number] SP [id number] [employer] [id number] SP [id number] MEDICAID P [id number] S [id number] MEDICAID [id number] SP [id number] Problems, Conditions, and Diagnoses Code Display Name Description Problem Type Effective Dates Data Source(s) G47.33 [id number] Obstructive sleep apnea Problem 02/08/2021 1 2:00:00 AM EDT eCW1 ([facility]) F17.200 [id number] Current smoker Problem 02/08/2021 12:00:00 A M EDT eCW1 ([facility]) E11.9 [id number] Type 2 diabetes khadar itus without complication, without long-term current use of insulin Problem 11/22/2020 12:00:00 AM EDT eCW1 ([facility]) E78.00 Pure hypercholesterolemia Pure hypercholesterolemia Pr oblem 11/22/2020 12:00:00 AM EDT eCW1 ([facility]) I10 [id number] Essential hypertension Problem 11/22/2020 12 :00:00 AM EDT eCW1 ([facility]) J44.9 [id number] Chronic obstructive pulmonary di sease, unspecified COPD type Problem 11/22/2020 12:00:00 AM EDT eCW1 ([facility]) I50.32 [id number] Chronic diastolic heart failure Problem 11/22/2020 12:00:00 AM EDT eCW1 ([facility]) F17.210 [id number] Cigarette nicotine dependence without com plication Problem 11/22/2020 12:00:00 AM EDT eCW1 ([facility]) Surgeries/Procedures No Information Results ID Date Data Source [id number] 10/24/2020 09:41:00 AM EDT [facility] Name Value Range Interpretation Code Description Data Katy rce(s) Supporting Document(s) SARS-CoV-2 (COVID 19) NEGATIVE - SARS-CoV-2 (COVID19) [facility] This lab was ordered by [facility] a nd reported by [facility]. Procedure Social History Code Duration Value Status Description Data Source(s ) Smoking 03/31/2021 12:00:00 AM EDT Current Smoker completed Curre nt Smoker eCW1 ([facility]) Smoking 03/31/2021 12:00:00 AM EDT Current Smoker completed Curre nt Smoker eCW1 ([facility]) Smoking 02/13/2021 12:00:00 AM EDT Current Smoker completed Curre nt Smoker eCW1 ([facility]) Smoking 02/13/2021 12:00:00 AM EDT Current Smoker completed Curre nt Smoker eCW1 ([facility]) Smoking 02/13/2021 12:00:00 AM EDT Current Smoker completed Curre nt Smoker eCW1 ([facility]) Smoking 02/13/2021 12:00:00 AM EDT Current Smoker completed Curre nt Smoker eCW1 ([facility]) Smoking 02/06/2021 12:00:00 AM EDT Current Smoker completed Curre nt Smoker eCW1 ([facility]) Smoking 01/07/2021 12:00:00 AM EDT Current Smoker completed Curre nt Smoker eCW1 ([facility]) Smoking 01/07/2021 12:00:00 AM EDT Current Smoker completed Curre nt Smoker eCW1 ([facility]) Smoking 01/07/2021 12:00:00 AM EDT Current Smoker completed Curre nt Smoker eCW1 ([facility]) Smoking 11/22/2020 12:00:00 AM EDT Current Smoker completed Curre nt Smoker eCW1 ([facility]) Vital Signs ID Date Data Source UNK Name Value Range Interpretation Code Description Data Source(s) Body mass index (BMI) [Ratio] 40.75 kg/m2 40.75 kg/m2 eCW1 ([facility]) Body weight 284.0 [lb_av] 284.0 [lb_av] eCW1 ([facility]) Body weight 128.82 kg 128.82 kg eCW1 ([facility]) Body height 70 [in_i] 70 [in_i] eCW1 ([facility]) Body temperature 96.7 [degF] 96.7 [degF] eCW1 ( [facility]) Systolic blood pressure 140 mm[Hg] 140 mm[Hg] e CW1 ([facility]) Diastolic blood pressure 80 mm[Hg] 80 mm[Hg] eCW1 ([facility]) Heart rate 107 /min 107 /min eCW1 ([facility]) Respiratory rate 18 /min 18 /min eCW1 ([facility]) Body weight 279.8 [lb_av] 279.8 [lb_av] eCW1 ([facility]) Body height 70 [in_i] 70 [in_i] eCW1 ([facility]) Body mass index (BMI) [Ratio] 40.14 kg/m2 40.14 kg/m2 eCW1 ([facility]) Heart rate 89 /min 89 /min eCW1 ([facility]) Respiratory rate 18 /min 18 /min eCW1 ([facility]) Body temperature 97.4 [degF] 97.4 [degF] eCW1 ( [facility]) Systolic blood pressure 138 mm[Hg] 138 mm[Hg] e CW1 ([facility]) Diastolic blood pressure 78 mm[Hg] 78 mm[Hg] eCW1 ([facility]) Body weight 275 [lb_av] 275 [lb_av] eCW1 ([facility]) Body height 70 [in_i] 70 [in_i] eCW1 ([facility]) Body mass index (BMI) [Ratio] 39.45 kg/m2 39.45 kg/m2 eCW1 ([facility]) Heart rate 89 /min 89 /min eCW1 ([facility]) Respiratory rate 18 /min 18 /min eCW1 ([facility]) Body temperature 97.2 [degF] 97.2 [degF] eCW1 ( [facility]) Systolic blood pressure 150 mm[Hg] 150 mm[Hg] e CW1 ([facility]) Diastolic blood pressure 90 mm[Hg] 90 mm[Hg] eCW1 ([facility]) Body weight 277.2 [lb_av] 277.2 [lb_av] eCW1 ([facility]) Respiratory rate 18 /min 18 /min eCW1 ([facility]) Body temperature 97.4 [degF] 97.4 [degF] eCW1 ( [facility]) Systolic blood pressure 148 mm[Hg] 148 mm[Hg] e CW1 ([facility]) Body height 70 [in_i] 70 [in_i] eCW1 ([facility]) Body mass index (BMI) [Ratio] 39.77 kg/m2 39.77 kg/m2 eCW1 ([facility]) Heart rate 103 /min 103 /min eCW1 ([facility]) Diastolic blood pressure 90 mm[Hg] 90 mm[Hg] eCW1 ([facility]) Respiratory rate 18 /min 18 /min eCW1 ([facility]) Body weight 286.0 [lb_av] 286.0 [lb_av] eCW1 ([facility]) Body height 70 [in_i] 70 [in_i] eCW1 ([facility]) Body mass index (BMI) [Ratio] 41.03 kg/m2 41.03 kg/m2 eCW1 ([facility]) Heart rate 99 /min 99 /min eCW1 ([facility]) Body temperature 97.9 [degF] 97.9 [degF] eCW1 ( [facility]) Systolic blood pressure 170 mm[Hg] 170 mm[Hg] e CW1 ([facility]) Diastolic blood pressure 110 mm[Hg] 110 mm[Hg] eCW1 ([facility]) Patient Treatment Plan of Care Planned Activity Planned Date Details Description Data Source (s) 7 ACTUAT umeclidinium 0.0625 MG/ACTUAT Dry Powder Inha ler [Incruse] 11/25/2020 12:00:00 AM EDT eCW1 ([facility]) 24 HR Nicotine 0.583 MG/HR Transdermal Patch [Nicoderm C-Q] 11/22/2020 12:00:00 AM EDT eCW1 ([facility])
[2021-05-22 10:38] LABS: ABG BASE EXCESS 1.3 (-2.0-2.0); ABG HCO3 31.9 MEQ/L (22.0-26.0); ABG O2 SATURATION 90.7 % (95.0-99.0); ABG PARTIAL PRESSURE O2 63.2 mmHg (75.0-100.0); ABG STANDARD HCO3 25.4 MEQ/L (22.0-26.0); ABG TOTAL CO2 34.3 MEQ/L (22.0-29.0)
[2021-05-22 10:41] LABS: ABG PARTIAL PRESSURE CO2 77.8 mmHg (35.0-45.0); ABG pH (ARTERIAL) 7.231 UNITS (7.350-7.450)
[2021-05-22 10:45] LABS: ALBUMIN 3.6 GM/DL (3.2-5.2); ALT/SGPT 202 U/L (12-78); BILIRUBIN,DIRECT 0.1 MG/DL (0.0-0.2); BILIRUBIN,TOTAL 0.4 MG/DL (0.2-1.0); BLOOD UREA NITROGEN 13 MG/DL (7-18); CARBON DIOXIDE LEVEL 39 MEQ/L (21-32); CHLORIDE LEVEL 98 MEQ/L (98-107); CK-MB VALUE MASS 4.2 NG/ML (<3.6); CPK CREATINE PHOSPHOKINASE 85 U/L (39-308); CREATININE FOR GFR 0.91 MG/DL (0.70-1.30); GLOMERULAR FILTRATION RATE > 60.0 (>56); GLUCOSE, FASTING 145 MG/DL (70-100); MB/CK RELATIVE INDEX 4.94 (< OR =4); NT-PRO BNP 250 PG/ML (<125); POTASSIUM SERUM 5.2 MEQ/L (3.5-5.1); SODIUM LEVEL 138 MEQ/L (136-145); TOTAL PROTEIN 7.7 GM/DL (6.4-8.2)
[2021-05-22 10:59] LABS: RSV AMPLIFICATION NEGATIVE (NEGATIVE)
[2021-05-22 13:12] LABS: ABG BASE EXCESS 7.8 (-2.0-2.0); ABG HCO3 38.9 MEQ/L (22.0-26.0); ABG O2 SATURATION 89.2 % (95.0-99.0); ABG PARTIAL PRESSURE O2 56.3 mmHg (75.0-100.0); ABG STANDARD HCO3 31.4 MEQ/L (22.0-26.0); ABG TOTAL CO2 41.5 MEQ/L (22.0-29.0); ABG pH (ARTERIAL) 7.286 UNITS (7.350-7.450)
[2021-05-22 13:15] LABS: ABG PARTIAL PRESSURE CO2 83.5 mmHg (35.0-45.0)
[2021-05-22] MEDS ORDERED: CARV3.12 PO (13:49)
[2021-05-22] MEDS ORDERED: METF500T13 PO (13:49)
[2021-05-22] MEDS ORDERED: ATOR1TAB21 PO (13:49)
[2021-05-22] MEDS ORDERED: COMBAER6 INH (13:51)
[2021-05-22] MEDS ORDERED: LISI10TA22 PO (13:51)
[2021-05-22] MEDS ORDERED: ACETAMINOPHEN TAB 650MG DOSE (2X325MG) PO PRN (14:00)
[2021-05-22] MEDS: IPRATROPIUM 0.5MG/ALBUTEROL 2.5MG INH SOL UD 3ML (DUONEB) NEB SCH ×2 (14:00→20:00)
[2021-05-22] MEDS ORDERED: FURO40TA2 PO (14:09)
[2021-05-22] MEDS ORDERED: HOME MED LIST COMPLETE! XX SCH (14:10)
--- OUTSIDE RECORDS SUMMARY | 2021-05-22 14:14 | CCD ---
Author Author [facility] Address Unknown Phone Unavailable Support Name Relationship Address Phone NADER WAGONER Next Of Kin [address] [place] [address] UE Next Of Kin Unknown Unavailable BRI SOFIA Next Of Kin [address] [place] [address] NADER WAGONER ECON Unknown Unavailable Re-disclosure Warning [...] is protected by Article 27-F of the [facility] Public Health law. If you continue you may have access to information: Regarding HIV / AIDS; Provided by facilities licensed or operated by the [facility] Office of Mental Health; or Provided by the [facility] Office for People With Developmental Disabilities. If such information is present, then the following [facility] mandated warning applies: This information has been [...] law may result in a fine or assisted sentence or both. A general authorization for the release of medical or other information is NOT sufficient authorization for further disc losure. Encounters Encounter Providers Location Date Indications Data Source(s ) Unknown [address] [facility] [address] 04/09/2021 12:00:00 AM EDT eCW1 ([facility] Outpatient [address] [facility] [address] 03/31/2021 12:00:00 AM EDT eCW1 ([facility] Unknown [address] [address] 02/21/2021 12:00:00 AM EDT [facility]CW[facility] Unknown [address] [facility] [address] 02/21/2021 12:00:00 AM EDT eCW1 ([facility]) Unknown [address] [facility] [address] 02/21/2021 12:00:00 AM EDT eCW1 ([facility]) Unknown [address] [facility] [address] 02/07/2021 12:00:00 AM EDT eCW1 ([facility]) Outpatient [address] [facility] [facility] [address] 02/06/2021 12:00:00 AM EDT eCW1 ([facility]) Outpatient [address] [facility] [address] 01/07/2021 12:00:00 AM EDT eCW1 ([facility]) Outpatient [address] [facility] [address] 12/12/2020 12:00:00 AM EDT eCW1 ([facility]) Outpatient [address] [facility] [address] 11/22/2020 12:00:00 AM EDT eCW1 ([facility]) Unknown [address] [facility] [address] 11/22/2020 12:00:00 AM EDT eCW1 ([facility]) Medications Medication Brand Name Start Date Product Form Dose Route Admi nistrative Instructions Pharmacy Instructions Status Indications Reaction Description Data Source(s) Test Strips - UNK 12/12/2020 12:00:00 AM EDT acti ve Test Strips - eCW1 ([facility]) Test Strips - UNK 12/12/2020 12:00:00 AM EDT acti ve Test Strips - eCW1 ([facility]) Lancets Thin - Lancets Thin - 12/12/2020 12:00:00 AM EDT active Lancets Thin - eCW1 ([facility]) Lancets Thin - Lancets Thin - 12/12/2020 12:00:00 AM EDT active Lancets Thin - eCW1 ([facility]) Lancets Thin - Lancets Thin - 12/12/2020 12:00:00 AM EDT active Lancets Thin - eCW1 ([facility]) Test Strips - UNK 12/12/2020 12:00:00 AM EDT acti ve Test Strips - eCW1 ([facility]) Glucometer UNK 12/12/2020 12:00:00 AM EDT active Glucometer eCW1 ([facility]) Glucometer UNK 12/12/2020 12:00:00 AM EDT active Glucometer eCW1 ([facility]) Glucometer UNK 12/12/2020 12:00:00 AM EDT active Glucometer eCW1 ([facility]) Test Strips - UNK 12/12/2020 12:00:00 AM EDT acti ve Test Strips - eCW1 ([facility]) Glucometer UNK 12/12/2020 12:00:00 AM EDT active Glucometer eCW1 ([facility]) Glucometer UNK 12/12/2020 12:00:00 AM EDT active Glucometer eCW1 ([facility]) Glucometer UNK 12/12/2020 12:00:00 AM EDT active Glucometer eCW1 ([facility]) Glucometer UNK 12/12/2020 12:00:00 AM EDT active Glucometer eCW1 ([facility]) Lancets Thin - Lancets Thin - 12/12/2020 12:00:00 AM EDT active Lancets Thin - eCW1 ([facility]) Lancets Thin - Lancets Thin - 12/12/2020 12:00:00 AM EDT active Lancets Thin - eCW1 ([facility]) Lancets Thin - Lancets Thin - 12/12/2020 12:00:00 AM EDT active Lancets Thin - eCW1 ([facility]) Test Strips - UNK 12/12/2020 12:00:00 AM EDT acti ve Test Strips - eCW1 ([facility]) Lancets Thin - Lancets Thin - 12/12/2020 12:00:00 AM EDT active Lancets Thin - eCW1 ([facility]) Test Strips - UNK 12/12/2020 12:00:00 AM EDT acti ve Test Strips - eCW1 ([facility]) Test Strips - UNK 12/12/2020 12:00:00 AM EDT acti ve Test Strips - eCW1 ([facility]) Glucometer UNK 12/12/2020 12:00:00 AM EDT active Glucometer eCW1 ([facility]) Glucometer UNK 12/12/2020 12:00:00 AM EDT active Glucometer eCW1 ([facility]) Lancets Thin - Lancets Thin - 12/12/2020 12:00:00 AM EDT active Lancets Thin - eCW1 ([facility]) Lancets Thin - Lancets Thin - 12/12/2020 12:00:00 AM EDT active Lancets Thin - eCW1 ([facility]) Test Strips - UNK 12/12/2020 12:00:00 AM EDT acti ve Test Strips - eCW1 ([facility]) Glucometer UNK 12/12/2020 12:00:00 AM EDT active Glucometer eCW1 ([facility]) Lancets Thin - Lancets Thin - 12/12/2020 12:00:00 AM EDT active Lancets Thin - eCW1 ([facility]) Test Strips - UNK 12/12/2020 12:00:00 AM EDT acti ve Test Strips - eCW1 ([facility]) Test Strips - UNK 12/12/2020 12:00:00 AM EDT acti ve Test Strips - eCW1 ([facility]) 7 ACTUAT umeclidinium 0.0625 MG/ACTUAT D ry Powder Inhaler [Incruse] Incruse Ellipta 62.5 MCG/INH Incruse Ellipta 62.5 MCG/INH 11/25/2020 12:00:00 AM EDT 1.0 {puff} active Incruse Ellipta 62.5 MCG/INH eCW1 ([facility]) 7 ACTUAT umeclidinium 0.0625 MG/ACTUAT D ry Powder Inhaler [Incruse] Incruse Ellipta 62.5 MCG/INH Incruse Ellipta 62.5 MCG/INH 11/25/2020 12:00:00 AM EDT 1.0 {puff} active Incruse Ellipta 62.5 MCG/INH eCW1 ([facility]) 7 ACTUAT umeclidinium 0.0625 MG/ACTUAT D ry Powder Inhaler [Incruse] Incruse Ellipta 62.5 MCG/INH Incruse Ellipta 62.5 MCG/INH 11/25/2020 12:00:00 AM EDT 1.0 {puff} active Incruse Ellipta 62.5 MCG/INH eCW1 ([facility]) 7 ACTUAT umeclidinium 0.0625 MG/ACTUAT D ry Powder Inhaler [Incruse] Incruse Ellipta 62.5 MCG/INH Incruse Ellipta 62.5 MCG/INH 11/25/2020 12:00:00 AM EDT 1.0 {puff} active Incruse Ellipta 62.5 MCG/INH eCW1 ([facility]) 7 ACTUAT umeclidinium 0.0625 MG/ACTUAT D ry Powder Inhaler [Incruse] Incruse Ellipta 62.5 MCG/INH Incruse Ellipta 62.5 MCG/INH 11/25/2020 12:00:00 AM EDT 1.0 {puff} active Incruse Ellipta 62.5 MCG/INH eCW1 ([facility]) 7 ACTUAT umeclidinium 0.0625 MG/ACTUAT D ry Powder Inhaler [Incruse] Incruse Ellipta 62.5 MCG/INH Incruse Ellipta 62.5 MCG/INH 11/25/2020 12:00:00 AM EDT 1.0 {puff} active Incruse Ellipta 62.5 MCG/INH eCW1 ([facility]) 7 ACTUAT umeclidinium 0.0625 MG/ACTUAT D ry Powder Inhaler [Incruse] Incruse Ellipta 62.5 MCG/INH Incruse Ellipta 62.5 MCG/INH 11/25/2020 12:00:00 AM EDT 1.0 {puff} active Incruse Ellipta 62.5 MCG/INH eCW1 ([facility]) 7 ACTUAT umeclidinium 0.0625 MG/ACTUAT D ry Powder Inhaler [Incruse] Incruse Ellipta 62.5 MCG/INH Incruse Ellipta 62.5 MCG/INH 11/25/2020 12:00:00 AM EDT 1.0 {puff} suspended Incruse Ellipta 62. 5 MCG/INH eCW1 ([facility]) 7 ACTUAT umeclidinium 0.0625 MG/ACTUAT D ry Powder Inhaler [Incruse] Incruse Ellipta 62.5 MCG/INH Incruse Ellipta 62.5 MCG/INH 11/25/2020 12:00:00 AM EDT 1.0 {puff} active Incruse Ellipta 62.5 MCG/INH eCW1 ([facility]) 7 ACTUAT umeclidinium 0.0625 MG/ACTUAT D ry Powder Inhaler [Incruse] Incruse Ellipta 62.5 MCG/INH Incruse Ellipta 62.5 MCG/INH 11/25/2020 12:00:00 AM EDT 1.0 {puff} active Incruse Ellipta 62.5 MCG/INH eCW1 ([facility]) 7 ACTUAT umeclidinium 0.0625 MG/ACTUAT D ry Powder Inhaler [Incruse] Incruse Ellipta 62.5 MCG/INH Incruse Ellipta 62.5 MCG/INH 11/25/2020 12:00:00 AM EDT 1.0 {puff} suspended Incruse Ellipta 62. 5 MCG/INH eCW1 ([facility]) 24 HR Nicotine 0.583 MG/HR Transdermal P atch [Nicoderm C-Q] Nicoderm CQ 14 MG/24HR Nicoderm CQ 14 MG/24HR 11/22/2020 12:00:00 AM EDT 1.0 {patch_to_skin} active Nicoderm CQ 14 MG/24 HR eCW1 ([facility]) 24 HR Nicotine 0.583 MG/HR Transdermal P atch [Nicoderm C-Q] Nicoderm CQ 14 MG/24HR Nicoderm CQ 14 MG/24HR 11/22/2020 12:00:00 AM EDT 1.0 {patch_to_skin} active Nicoderm CQ 14 MG/24 HR eCW1 ([facility]) 24 HR Nicotine 0.583 MG/HR Transdermal P atch [Nicoderm C-Q] Nicoderm CQ 14 MG/24HR Nicoderm CQ 14 MG/24HR 11/22/2020 12:00:00 AM EDT 1.0 {patch_to_skin} active Nicoderm CQ 14 MG/24 HR eCW1 ([facility]) 24 HR Nicotine 0.583 MG/HR Transdermal P atch [Nicoderm C-Q] Nicoderm CQ 14 MG/24HR Nicoderm CQ 14 MG/24HR 11/22/2020 12:00:00 AM EDT 1.0 {patch_to_skin} active Nicoderm CQ 14 MG/24 HR eCW1 ([facility]) 24 HR Nicotine 0.583 MG/HR Transdermal P atch [Nicoderm C-Q] Nicoderm CQ 14 MG/24HR Nicoderm CQ 14 MG/24HR 11/22/2020 12:00:00 AM EDT 1.0 {patch_to_skin} active Nicoderm CQ 14 MG/24 HR eCW1 ([facility]) 24 HR Nicotine 0.583 MG/HR Transdermal P atch [Nicoderm C-Q] Nicoderm CQ 14 MG/24HR Nicoderm CQ 14 MG/24HR 11/22/2020 12:00:00 AM EDT 1.0 {patch_to_skin} suspended Nicoderm CQ 14 MG/24 HR eCW1 ([facility]) 24 HR Nicotine 0.583 MG/HR Transdermal P atch [Nicoderm C-Q] Nicoderm CQ 14 MG/24HR Nicoderm CQ 14 MG/24HR 11/22/2020 12:00:00 AM EDT 1.0 {patch_to_skin} suspended Nicoderm CQ 14 MG/24 HR eCW1 ([facility]) 24 HR Nicotine 0.583 MG/HR Transdermal P atch [Nicoderm C-Q] Nicoderm CQ 14 MG/24HR Nicoderm CQ 14 MG/24HR 11/22/2020 12:00:00 AM EDT 1.0 {patch_to_skin} active Nicoderm CQ 14 MG/24 HR eCW1 ([facility]) 24 HR Nicotine 0.583 MG/HR Transdermal P atch [Nicoderm C-Q] Nicoderm CQ 14 MG/24HR Nicoderm CQ 14 MG/24HR 11/22/2020 12:00:00 AM EDT 1.0 {patch_to_skin} active Nicoderm CQ 14 MG/24 HR eCW1 ([facility]) 24 HR Nicotine 0.583 MG/HR Transdermal P atch [Nicoderm C-Q] Nicoderm CQ 14 MG/24HR Nicoderm CQ 14 MG/24HR 11/22/2020 12:00:00 AM EDT 1.0 {patch_to_skin} active Nicoderm CQ 14 MG/24 HR eCW1 ([facility]) 24 HR Nicotine 0.583 MG/HR Transdermal P atch [Nicoderm C-Q] Nicoderm CQ 14 MG/24HR Nicoderm CQ 14 MG/24HR 11/22/2020 12:00:00 AM EDT 1.0 {patch_to_skin} active Nicoderm CQ 14 MG/24 HR eCW1 ([facility]) Insurance Providers Payer name Policy type / Coverage type Policy ID Covered constitution party ID Covered constitution party's relationship to carmichael Policy Carmicheal Plan Information [facility] [employer] [id number] SP [id number] UN COMMUNITY PLAN [facility] [id number] SP [id number] [facility] O [id number] S [id number] [facility] [id number] SP [id number] [employer] [id number] SP [id number] MEDICAID P [id number] S [id number] MEDICAID [id number] SP [id number] Problems, Conditions, and Diagnoses Code Display Name Description Problem Type Effective Dates Data Source(s) G47.33 [id number] Obstructive sleep apnea Problem 02/08/2021 1 2:00:00 AM EDT eCW1 ([facility]) F17.200 [id number] Current smoker Problem 02/08/2021 12:00:00 A M EDT eCW1 ([facility]) E11.9 [id number] Type 2 diabetes khadar itus without complication, without long-term current use of insulin Problem 11/22/2020 12:00:00 AM EDT eCW1 ([facility]) E78.00 Pure hypercholesterolemia Pure hypercholesterolemia Pr oblem 11/22/2020 12:00:00 AM EDT eCW1 ([facility]) I10 [id number] Essential hypertension Problem 11/22/2020 12 :00:00 AM EDT eCW1 ([facility]) J44.9 [id number] Chronic obstructive pulmonary di sease, unspecified COPD type Problem 11/22/2020 12:00:00 AM EDT eCW1 ([facility]) I50.32 [id number] Chronic diastolic heart failure Problem 11/22/2020 12:00:00 AM EDT eCW1 ([facility]) F17.210 [id number] Cigarette nicotine dependence without com plication Problem 11/22/2020 12:00:00 AM EDT eCW1 ([facility]) Surgeries/Procedures No Information Results ID Date Data Source [id number] 10/24/2020 09:41:00 AM EDT [facility] Name Value Range Interpretation Code Description Data Katy rce(s) Supporting Document(s) SARS-CoV-2 (COVID 19) NEGATIVE - SARS-CoV-2 (COVID19) [facility] This lab was ordered by [facility] a nd reported by [facility]. Procedure Social History Code Duration Value Status Description Data Source(s ) Smoking 03/31/2021 12:00:00 AM EDT Current Smoker completed Curre nt Smoker eCW1 ([facility]) Smoking 03/31/2021 12:00:00 AM EDT Current Smoker completed Curre nt Smoker eCW1 ([facility]) Smoking 02/13/2021 12:00:00 AM EDT Current Smoker completed Curre nt Smoker eCW1 ([facility]) Smoking 02/13/2021 12:00:00 AM EDT Current Smoker completed Curre nt Smoker eCW1 ([facility]) Smoking 02/13/2021 12:00:00 AM EDT Current Smoker completed Curre nt Smoker eCW1 ([facility]) Smoking 02/13/2021 12:00:00 AM EDT Current Smoker completed Curre nt Smoker eCW1 ([facility]) Smoking 02/06/2021 12:00:00 AM EDT Current Smoker completed Curre nt Smoker eCW1 ([facility]) Smoking 01/07/2021 12:00:00 AM EDT Current Smoker completed Curre nt Smoker eCW1 ([facility]) Smoking 01/07/2021 12:00:00 AM EDT Current Smoker completed Curre nt Smoker eCW1 ([facility]) Smoking 01/07/2021 12:00:00 AM EDT Current Smoker completed Curre nt Smoker eCW1 ([facility]) Smoking 11/22/2020 12:00:00 AM EDT Current Smoker completed Curre nt Smoker eCW1 ([facility]) Vital Signs ID Date Data Source UNK Name Value Range Interpretation Code Description Data Source(s) Body temperature 96.7 [degF] 96.7 [degF] eCW1 ( [facility]) Systolic blood pressure 140 mm[Hg] 140 mm[Hg] e CW1 ([facility]) Diastolic blood pressure 80 mm[Hg] 80 mm[Hg] eCW1 ([facility]) Body weight 284.0 [lb_av] 284.0 [lb_av] eCW1 ([facility]) Body weight 128.82 kg 128.82 kg eCW1 ([facility]) Body height 70 [in_i] 70 [in_i] eCW1 ([facility]) Body mass index (BMI) [Ratio] 40.75 kg/m2 40.75 kg/m2 eCW1 ([facility]) Heart rate 107 /min 107 /min eCW1 ([facility]) Respiratory rate 18 /min 18 /min eCW1 ([facility]) Body weight 279.8 [lb_av] 279.8 [lb_av] eCW1 ([facility]) Body height 70 [in_i] 70 [in_i] eCW1 ([facility]) Body mass index (BMI) [Ratio] 40.14 kg/m2 40.14 kg/m2 eCW1 ([facility]) Heart rate 89 /min 89 /min eCW1 ([facility]) Respiratory rate 18 /min 18 /min eCW1 ([facility]) Body temperature 97.4 [degF] 97.4 [degF] eCW1 ( [facility]) Systolic blood pressure 138 mm[Hg] 138 mm[Hg] e CW1 ([facility]) Diastolic blood pressure 78 mm[Hg] 78 mm[Hg] eCW1 ([facility]) Body weight 275 [lb_av] 275 [lb_av] eCW1 ([facility]) Body height 70 [in_i] 70 [in_i] eCW1 ([facility]) Body mass index (BMI) [Ratio] 39.45 kg/m2 39.45 kg/m2 eCW1 ([facility]) Heart rate 89 /min 89 /min eCW1 ([facility]) Respiratory rate 18 /min 18 /min eCW1 ([facility]) Body temperature 97.2 [degF] 97.2 [degF] eCW1 ( [facility]) Systolic blood pressure 150 mm[Hg] 150 mm[Hg] e CW1 ([facility]) Diastolic blood pressure 90 mm[Hg] 90 mm[Hg] eCW1 ([facility]) Body weight 277.2 [lb_av] 277.2 [lb_av] eCW1 ([facility]) Body height 70 [in_i] 70 [in_i] eCW1 ([facility]) Body mass index (BMI) [Ratio] 39.77 kg/m2 39.77 kg/m2 eCW1 ([facility]) Heart rate 103 /min 103 /min eCW1 ([facility]) Respiratory rate 18 /min 18 /min eCW1 ([facility]) Body temperature 97.4 [degF] 97.4 [degF] eCW1 ( [facility]) Systolic blood pressure 148 mm[Hg] 148 mm[Hg] e CW1 ([facility]) Diastolic blood pressure 90 mm[Hg] 90 mm[Hg] eCW1 ([facility]) Body weight 286.0 [lb_av] 286.0 [lb_av] eCW1 ([facility]) Body height 70 [in_i] 70 [in_i] eCW1 ([facility]) Body mass index (BMI) [Ratio] 41.03 kg/m2 41.03 kg/m2 eCW1 ([facility]) Heart rate 99 /min 99 /min eCW1 ([facility]) Respiratory rate 18 /min 18 /min eCW1 ([facility]) Body temperature 97.9 [degF] 97.9 [degF] eCW1 ( [facility]) Systolic blood pressure 170 mm[Hg] 170 mm[Hg] e CW1 ([facility]) Diastolic blood pressure 110 mm[Hg] 110 mm[Hg] eCW1 ([facility]) Patient Treatment Plan of Care Planned Activity Planned Date Details Description Data Source (s) 7 ACTUAT umeclidinium 0.0625 MG/ACTUAT Dry Powder Inha ler [Incruse] 11/25/2020 12:00:00 AM EDT eCW1 ([facility]) 24 HR Nicotine 0.583 MG/HR Transdermal Patch [Nicoderm C-Q] 11/22/2020 12:00:00 AM EDT eCW1 ([facility])
[2021-05-22] MEDS ORDERED: DEXTROSE 50% 50 ML SYRINGE IV PRN (14:20)
[2021-05-22] MEDS ORDERED: GLUCAGON INJ 1MG VIAL SC PRN (14:20)
[2021-05-22] MEDS ORDERED: GLUCOSE 4GM CHEW TABLET PO PRN (14:20)
[2021-05-22] MEDS ORDERED: hydrALAZINE 20MG/ML 1ML VIAL (J0360 PER 20MG) IV PRN (14:30)
--- NOTE | 2021-05-22 14:31 | HPEPDOC ---
General Date of Admission May 22, 2021 at 14:00 Date of Service: May 22, 2021 Chief Complaint The patient is a 55-year-old male admitted with a reason for visit of Shortness Of Breath. Source: Patient History of Present Illness Patient is a 55 years old male with past medical history of hypertension, diabetes type 2, obstructive sleep apnea, opioids abuse, COPD presented to hospital with increased shortness of breath. Patient stated that he has been having increased shortness of breath for past few weeks. Of note patient is active smoker. He denies any fever, chills, sputum production. He stated that he has intermittent dry cough. He denies any chest pain or palpitations. He reported that he use home oxygen as needed. In ER patient was found to have systolic blood pressure elevated 215, no leukocytosis, potassium 5.2. ABG showed pH 7.2, CO2 83.5. Chest x-ray did not show any acute pulmonary infiltrate. EKG negative for acute ischemic changes Home Medications Scheduled Atorvastatin Calcium (Atorvastatin Calcium) 20 Mg Tablet, 20 MG PO DAILY, (Reported) Buprenorphine HCl/Naloxone HCl (Suboxone 8 mg-2 mg Sl Film) 1 Mis Mis, 1 FILM SL BID, (Reported) Carvedilol (Carvedilol) 3.125 Mg Tablet, 3.125 MG PO BID, (Reported) Furosemide (Furosemide) 40 Mg Tablet, 40 MG PO DAILY, (Reported) Ipratropium/Albuterol Sulfate (Combivent Respimat 20-100 Mcg) 4 Gm Mist.inhal, 1 PUFF INH Q6H, (Reported) Lisinopril (Lisinopril) 10 Mg Tablet, 10 MG PO DAILY, (Reported) Metformin HCl (Metformin HCl) 500 Mg Tablet, 500 MG PO BID, (Reported) Allergies Coded Allergies: No Known Allergies (Unverified , 03/10/18) Past Medical History Medical History COPD, type 2 diabetes, opioid abuse in remission, hypertension Family History I personally reviewed family history and found not pertinent Social History * Smoker: current smoker Alcohol: Denies Drugs: denies A-FIB/CHADSVASC A-FIB History Current/History of A-Fib/PAF?: No Current PO Anticoag Therapy: No Review of Systems Constitutional: Denies: Chills Eyes: Denies: Pain ENT: Denies: Head Aches Skin: Denies: Rash Pulmonary: Reports: Dyspnea, Cough Cardiovascular: Denies: Chest Pain Gastrointestinal: Denies: Nausea, Vomiting Genitourinary: Denies: Dysuria Hematologic: Denies: Bruising Endocrine: Denies: Polydipsia Musculoskeletal: Denies: Neck Pain Neurological: Denies: Weakness Psych: Reports: Mood Normal Physical Examination General Exam: Positive: Alert, Cooperative Eye Exam: Positive: PERRLA ENT Exam: Positive: Atraumatic Neck Exam: Positive: Supple; Negative: JVD Chest Exam: Positive: Wheezing, Diminished Heart Exam: Positive: Rate Normal Telemetry: Positive: No significant arrhythmia Abdomen Exam: Positive: Normal bowel sounds Extremity Exam: Negative: Clubbing Skin Exam: Positive: Nl turgor and temperature Neuro Exam: Positive: Cranial Nerves 3-12 NL Psych Exam: Positive: Mental status NL Vital Signs Vital Signs Date Time Temp Pulse Resp B/P (MAP) Pulse Ox O2 Delivery O2 Flow Rate FiO2 05/22/21 12:45 177/92 (120) 89 05/22/21 12:44 77 05/22/21 11:56 Nasal Cannula 10.0 40 05/22/21 09:29 97.3 24 Laboratory Data Labs 24H Laboratory Tests 2 05/22/21 09:31: Anion Gap 1L, Glomerular Filtration Rate > 60.0, Calcium Level 9.0, Total Bilirubin 0.4, Direct Bilirubin 0.1, Aspartate Amino Transf (AST/SGOT) 88H, Alanine Aminotransferase (ALT/SGPT) 202H, Alkaline Phosphatase 83, Total Creatine Kinase 85, Creatine Kinase MB 4.2H, Creatine Kinase MB Relative Index 4.94H, Troponin I 0.10, XB-Gfb-I-Type Natriuretic Peptide 250H, Total Protein 7.7, Albumin 3.6, Albumin/Globulin Ratio 0.9, Thyroid Stimulating Hormone (TSH) 1.040 05/22/21 09:35: Immature Granulocyte % (Auto) 0.5, Neutrophils (%) (Auto) 73.1H, Lymphocytes (%) (Auto) 17.4L, Monocytes (%) (Auto) 6.7, Eosinophils (%) (Auto) 1.5, Basophils (%) (Auto) 0.8, Neutrophils # (Auto) 7.0, Lymphocytes # (Auto) 1.7, Monocytes # (Auto) 0.6, Eosinophils # (Auto) 0.1, Basophils # (Auto) 0.1, Nucleated Red Blood Cells % (auto) 0.2H, Blood Gas Bicarbonate Standard 28.5, Venous Blood pH 7.238L, Venous Blood Partial Pressure CO2 87.2H, Venous Blood Partial Pressure O2 56.0H, Venous Blood Total Carbon Dioxide 39.0H, Venous Blood HCO3 36.4H, Venous Blood Oxygen Saturation 87.9H, Venous Blood Base Excess 4.9H, Lactic Acid Level 1.0, Coronavirus (COVID-19)(PCR) NEGATIVE, Influenza Type A (RT-PCR) NEGATIVE, Influenza Type B (RT-PCR) NEGATIVE, Respiratory Syncytial Virus (PCR) NEGATIVE 05/22/21 10:29: Blood Gas Bicarbonate Standard 25.4, Arterial Blood pH 7.231*L, Arterial Blood Partial Pressure CO2 77.8*H, Arterial Blood Partial Pressure O2 63.2L, Arterial Blood Total CO2 34.3H, Arterial Blood HCO3 31.9H, Arterial Blood Base Excess 1.3, Arterial Blood Oxygen Saturation 90.7L 05/22/21 12:59: Blood Gas Bicarbonate Standard 31.4H, Arterial Blood pH 7.286L, Arterial Blood Partial Pressure CO2 83.5*H, Arterial Blood Partial Pressure O2 56.3L, Arterial Blood Total CO2 41.5H, Arterial Blood HCO3 38.9H, Arterial Blood Base Excess 7.8H, Arterial Blood Oxygen Saturation 89.2L CBC/BMP Laboratory Tests 05/22/21 09:31 05/22/21 09:35 Microbiology Microbiology 05/22/21 Blood Culture, Received Pending 05/22/21 Blood Culture, Received Pending Assessment/Plan Patient is a 55 years old male with past medical history of hypertension, diabetes type 2, obstructive sleep apnea, opioids abuse, COPD presented to hospital with increased shortness of breath. Patient stated that he has been having increased shortness of breath for past few weeks. Of note patient is active smoker. He denies any fever, chills, sputum production. He stated that he has intermittent dry cough. He denies any chest pain or palpitations. He reported that he use home oxygen as needed. In ER patient was found to have systolic blood pressure elevated 215, no leukocytosis, potassium 5.2. ABG showed pH 7.2, CO2 83.5. Chest x-ray did not show any acute pulmonary infiltrate. EKG negative for acute ischemic changes Problems (1) Acute hypercapnic respiratory failure Status: Acute Problem Text: Secondary to COPD exacerbation BiPAP Inhalers, IV steroids Incentive spirometry Continue monitor ABG (2) Obesity (BMI 30-39.9) Status: Chronic Problem Text: Complicated care (3) Hypertensive urgency Status: Acute Problem Text: Hydralazine IV as needed Lisinopril 20 mg now Continue to monitor vital signs (4) History of opioid abuse Status: Chronic Problem Text: Continue Suboxone (5) Diabetes mellitus Status: Chronic Problem Text: Diabetes diet Insulin sliding scale Plan / VTE VTE Prophylaxis Ordered?: Yes PEDRO ZARATE DO May 22, 2021 14:31
--- NOTE | 2021-05-22 14:56 | CR.PDOC ---
General Date of Consultation: May 22, 2021 Consultation REASON FOR CRITICAL CARE CONSULTATION/RORY COMPLAINT: Respiratory failure HISTORY OF PRESENT ILLNESS: 55-year-old male with a history of BROOKE, active smoker, suspected COPD who presents to the hospital for worsening shortness of breath over the past year. He says it acutely worsened over the past week. He says he is having difficulty catching his breath and speak. He also admits to some dry cough. No fever, chills, weight loss. In the ED he was in hypoxic respiratory failure and he was placed on nasal cannula his ABG showed that he had evidence of acute on chronic hypercapnia he was subsequently placed on Vapotherm. His repeat ABG did not show improvement in his hypercapnia. ICU was called for BiPAP management. PAST MEDICAL/SURGICAL HISTORY: Morbid obesity, diabetes mellitus, history of opiate abuse on Suboxone program, active smoker no formal history of COPD, hypertension, BROOKE FAMILY HISTORY: Lung cancer in father SOCIAL HISTORY: Active smoker 1 pack/day for 50 years, history of opiate abuse, denies alcohol ALLERGIES: Please see below. HOME MEDICATIONS: Please see below. REVIEW OF SYSTEMS: CONSTITUTIONAL: Denies fever, chills, night sweats, weight loss EYES: No blurring of vision or redness. ENT: No sore throat. No epistaxis. No tinnitus. CARDIOVASCULAR: No chest pain. No palpitations. RESPIRATORY: No dyspnea, no wheeze, no cough, no hemoptysis GASTROINTESTINAL: No nausea, vomiting, or diarrhea. GENITOURINARY: No frequency, urgency, nocturia. No hematuria or dysuria. MUSCULOSKELETAL: No arthralgias or myalgias. INTEGUMENTARY: No rash or swelling NEUROLOGIC: No headache. No numbness or tingling of the extremities. No weakness. PSYCHIATRIC: No confusion or mood changes. ENDOCRINE: No fatigue, no goiter. HEMATOLOGICAL: No bleeding. No petechiae. No bruising. PHYSICAL EXAMINATION: VITAL SIGNS: Please see below. GENERAL APPEARANCE: Alert and awake. Morbidly obese HEENT: no thyromegaly, trachea midline, PERRLA. normal mucous membranes RESPIRATORY: Reduced breath sounds bilateral, speaks in 2-3 word sentences CARDIOVASCULAR: +s1 s2, no murmurs. ABDOMEN: nontender, not distended, +BS EXTREMITIES: Bilateral venous stasis changes, mild edema SKIN: no rash, no purpura NEUROLOGICAL: no sensory or motor deficits, orientedx3. LABS/IMAGING: Chest x-ray without any infiltrates CT chest with contrast 10/24/20 there are no pulmonary emboli. There are no infiltrates, effusions, nodules, masses. There is no emphysema, there is no bronchial wall thickening. IMPRESSION: The most critical problems requiring my immediate presence at bedside are: 1. Acute on chronic hypercapnic respiratory failure likely secondary to BROOKE/OHS, less likely COPD exacerbation 2. Morbid obesity 3. Active heavy smoker PLAN: * Start patient on AVAPS 4 hours on 4 hours off and nightly. Repeat ABG tomorrow morning. AVAPS settings are tidal volume 450 respiratory rate 18 EPAP 8 IPAP min 18 IPAP max 25, inspiratory time 1 second. Patient will benefit from being discharged on AVAPS. He will need outpatient pulmonary follow-up for in lab PSG and PFTs * Bronchodilators [id number] and as needed * Oxygen therapy to maintain SPO2 89 to 92% * Prednisone 40 mg daily x5 days * DVT prophylaxis A total of 47 minutes of critical care time was spent on patient care, not including procedures Vital Signs/I&O Vital Signs Date Time Temp Pulse Resp B/P (MAP) Pulse Ox O2 Delivery O2 Flow Rate FiO2 05/22/21 14:15 77 91 05/22/21 13:15 169/102 (124) 05/22/21 11:56 Nasal Cannula 10.0 40 05/22/21 09:29 97.3 24 Laboratory Data Labs 24H Laboratory Tests 2 05/22/21 09:31: Anion Gap 1L, Glomerular Filtration Rate > 60.0, Calcium Level 9.0, Total Bilirubin 0.4, Direct Bilirubin 0.1, Aspartate Amino Transf (AST/SGOT) 88H, Alanine Aminotransferase (ALT/SGPT) 202H, Alkaline Phosphatase 83, Total Creatine Kinase 85, Creatine Kinase MB 4.2H, Creatine Kinase MB Relative Index 4.94H, Troponin I 0.10, PW-Itl-C-Type Natriuretic Peptide 250H, Total Protein 7.7, Albumin 3.6, Albumin/Globulin Ratio 0.9, Thyroid Stimulating Hormone (TSH) 1.040 05/22/21 09:35: Immature Granulocyte % (Auto) 0.5, Neutrophils (%) (Auto) 73.1H, Lymphocytes (%) (Auto) 17.4L, Monocytes (%) (Auto) 6.7, Eosinophils (%) (Auto) 1.5, Basophils (%) (Auto) 0.8, Neutrophils # (Auto) 7.0, Lymphocytes # (Auto) 1.7, Monocytes # (Auto) 0.6, Eosinophils # (Auto) 0.1, Basophils # (Auto) 0.1, Nucleated Red Blood Cells % (auto) 0.2H, Blood Gas Bicarbonate Standard 28.5, Venous Blood pH 7.238L, Venous Blood Partial Pressure CO2 87.2H, Venous Blood Partial Pressure O2 56.0H, Venous Blood Total Carbon Dioxide 39.0H, Venous Blood HCO3 36.4H, Venous Blood Oxygen Saturation 87.9H, Venous Blood Base Excess 4.9H, Lactic Acid Level 1.0, Coronavirus (COVID-19)(PCR) NEGATIVE, Influenza Type A (RT-PCR) NEGATIVE, Influenza Type B (RT-PCR) NEGATIVE, Respiratory Syncytial Virus (PCR) NEGATIVE 05/22/21 10:29: Blood Gas Bicarbonate Standard 25.4, Arterial Blood pH 7.231*L, Arterial Blood Partial Pressure CO2 77.8*H, Arterial Blood Partial Pressure O2 63.2L, Arterial Blood Total CO2 34.3H, Arterial Blood HCO3 31.9H, Arterial Blood Base Excess 1.3, Arterial Blood Oxygen Saturation 90.7L 05/22/21 12:59: Blood Gas Bicarbonate Standard 31.4H, Arterial Blood pH 7.286L, Arterial Blood P artial Pressure CO2 83.5*H, Arterial Blood Partial Pressure O2 56.3L, Arterial Blood Total CO2 41.5H, Arterial Blood HCO3 38.9H, Arterial Blood Base Excess 7.8H, Arterial Blood Oxygen Saturation 89.2L CBC/BMP Laboratory Tests 05/22/21 09:31 05/22/21 09:35 Microbiology Microbiology 05/22/21 Blood Culture, Received Pending 05/22/21 Blood Culture, Received Pending Allergies Coded Allergies: No Known Allergies (Unverified , 03/10/18) Home Medications Scheduled Atorvastatin Calcium (Atorvastatin Calcium) 20 Mg Tablet, 20 MG PO DAILY, (Reported) Buprenorphine HCl/Naloxone HCl (Suboxone 8 mg-2 mg Sl Film) 1 Mis Mis, 1 FILM SL BID, (Reported) Carvedilol (Carvedilol) 3.125 Mg Tablet, 3.125 MG PO BID, (Reported) Furosemide (Furosemide) 40 Mg Tablet, 40 MG PO DAILY, (Reported) Ipratropium/Albuterol Sulfate (Combivent Respimat 20-100 Mcg) 4 Gm Mist.inhal, 1 PUFF INH Q6H, (Reported) Lisinopril (Lisinopril) 10 Mg Tablet, 10 MG PO DAILY, (Reported) Metformin HCl (Metformin HCl) 500 Mg Tablet, 500 MG PO BID, (Reported) TREY RANDALL MD May 22, 2021 14:56
[2021-05-22] MEDS: HumaLOG INSULIN (NovoLOG) PER UNIT SC SCH ×2 (17:30→21:00)
[2021-05-22] MEDS: methylPREDNISolone 125MG 2ML VIAL IV SCH (20:07)
[2021-05-22] MEDS: NICOTINE 21MG/24HR 1 EA TRANSDERMAL TD SCH (20:07)
[2021-05-22] MEDS: BUPRENORPHINE/NALOXONE 8-2MG SUBLINGUAL TABLET(SUBOXONE) SL SCH (20:14)
[2021-05-22] MEDS: SYMBICORT 80/4.5MCG INHALER 6GM INH SCH (20:18)
[2021-05-22 21:36] VITALS: BP 180/105
[2021-05-22] MEDS: CARVedilol 3.125 MG TAB PO SCH (21:47)
[2021-05-22] MEDS: HEPARIN SOD (PORCINE) 5000UNITS/ML 1ML VIAL/SYRINGE SC SCH (21:48)
[2021-05-22 22:24] VITALS: BP 167/81
[2021-05-23] VITALS (14 sets, daily range): BP systolic 101–157; BP diastolic 52–82
[2021-05-23] MEDS: IPRATROPIUM 0.5MG/ALBUTEROL 2.5MG INH SOL UD 3ML (DUONEB) NEB SCH ×4 (01:21→19:24)
[2021-05-23] MEDS: methylPREDNISolone 125MG 2ML VIAL IV SCH (02:52)
[2021-05-23 04:07] LABS: HEMATOCRIT 50.5 % (42.0-52.0); HEMOGLOBIN 15.3 g/dl (13.5-17.5); MEAN CORPUSCULAR HEMOGLOBIN 30.4 pg (27.0-33.0); MEAN CORPUSCULAR HGB CONC 30.3 g/dl (32.0-36.5); MEAN CORPUSCULAR VOLUME 100.2 fl (80.0-96.0); PLATELET COUNT, AUTOMATED 237 10^3/uL (150-450); RED BLOOD COUNT 5.04 10^6/uL (4.30-6.10); WHITE BLOOD COUNT 11.1 10^3/uL (4.0-10.0)
[2021-05-23 04:31] LABS: ALBUMIN 3.4 GM/DL (3.2-5.2); ALT/SGPT 151 U/L (12-78); BILIRUBIN,TOTAL 0.4 MG/DL (0.2-1.0); BLOOD UREA NITROGEN 19 MG/DL (7-18); CARBON DIOXIDE LEVEL 41 MEQ/L (21-32); CHLORIDE LEVEL 94 MEQ/L (98-107); GLOMERULAR FILTRATION RATE > 60.0 (>56); GLUCOSE, FASTING 180 MG/DL (70-100); POTASSIUM SERUM 5.2 MEQ/L (3.5-5.1); SODIUM LEVEL 135 MEQ/L (136-145); TOTAL PROTEIN 7.8 GM/DL (6.4-8.2)
[2021-05-23 08:39] LABS: ABG BASE EXCESS 10.6 (-2.0-2.0); ABG HCO3 41.1 MEQ/L (22.0-26.0); ABG O2 SATURATION 96.4 % (95.0-99.0); ABG PARTIAL PRESSURE O2 87.4 mmHg (75.0-100.0); ABG STANDARD HCO3 34.4 MEQ/L (22.0-26.0); ABG TOTAL CO2 43.7 MEQ/L (22.0-29.0); ABG pH (ARTERIAL) 7.315 UNITS (7.350-7.450)
[2021-05-23] MEDS: SYMBICORT 80/4.5MCG INHALER 6GM INH SCH ×2 (08:39→19:24)
[2021-05-23 08:41] LABS: ABG PARTIAL PRESSURE CO2 82.6 mmHg (35.0-45.0)
[2021-05-23] MEDS: HEPARIN SOD (PORCINE) 5000UNITS/ML 1ML VIAL/SYRINGE SC SCH ×2 (09:18→20:15)
[2021-05-23] MEDS: BUPRENORPHINE/NALOXONE 8-2MG SUBLINGUAL TABLET(SUBOXONE) SL SCH ×2 (09:18→20:15)
[2021-05-23] MEDS: ATORVASTATIN 20 MG TAB PO SCH (09:19)
[2021-05-23] MEDS: PANTOPRAZOLE 40MG TAB (PROTONIX) PO SCH (09:19)
[2021-05-23] MEDS: CARVedilol 3.125 MG TAB PO SCH ×2 (09:19→20:17)
[2021-05-23] MEDS: FUROSEMIDE 40 MG TAB PO SCH (09:20)
[2021-05-23] MEDS: NICOTINE 21MG/24HR 1 EA TRANSDERMAL TD SCH (09:21)
[2021-05-23] MEDS: predniSONE 20 MG TAB PO SCH (09:38)
[2021-05-23] MEDS: HumaLOG INSULIN (NovoLOG) PER UNIT SC SCH ×4 (09:38→21:00)
--- NOTE | 2021-05-23 11:55 | IPNPDOC ---
Subjective Date Seen The patient was seen on 05/23/21. Subjective Chief Complaint/HPI Patient has absolutely no complaint today. He is asking for breakfast. He denies of fever, chills, shortness of breath, cough, chest pain, palpitation. Constitutional: Denies: Chills, Fever Eyes: Denies: Pain ENT: Denies: Head Aches, Sinus Congestion Skin: Denies: Rash Pulmonary: Denies: Dyspnea, Cough Cardiovascular: Denies: Chest Pain, Palpitations, Orthopnea, Paroxysmal Noc. Dyspnea Gastrointestinal: Denies: Nausea, Vomiting, Abdominal Pain Neurological: Denies: Weakness Objective Physical Examination General Exam: Positive: Alert, Cooperative Eye Exam: Positive: PERRLA ENT Exam: Positive: Atraumatic Neck Exam: Positive: Supple; Negative: JVD Chest Exam: Positive: Clear to auscultation, Normal air movement, Other (Dist ant breath sounds) Heart Exam: Positive: Rate Normal Telemetry: Positive: No significant arrhythmia Abdomen Exam: Positive: Normal bowel sounds Extremity Exam: Positive: Swelling, Other (Chronic lower extremity venous stasis changes.); Negative: Clubbing Skin Exam: Positive: Nl turgor and temperature Neuro Exam: Positive: Cranial Nerves 3-12 NL Psych Exam: Positive: Mental status NL, Oriented x 3 Assessment /Plan Assessment This is a 55-year-old gentleman with past medical history of chronic tobacco abu se, BROOKE who was admitted to the hospital with hypercapnic respiratory failure. 1. Acute on chronic hypercapnic respiratory failure likely secondary to BROOKE/OHS, less likely COPD exacerbation given absence of clinical finding 2. Morbid obesity 3. Active tobacco abuse Plan/VTE VTE Prophylaxis Ordered?: Yes Plan -There is improvement in his blood gas with AVAPS. Patient is a chronic CO2 retainer. I am switching his AVAPS to CPAP as there is a large amount of patients with OHS has components of BROOKE. He should be on CPAP pressure at 10 cm in the water, if not auto titrating CPAP 5-15 cmH2O nightly and when he sleeps while he is in the hospital. -Patient will strongly benefit from pulmonary follow-up as outpatient as he will need to be evaluated for COPD and sleep disorder. He will need pulmonary function test and sleep study. Disposition Transfer out of ICU. VS, I&O, 24H, Fishbone Vital Signs/I&O Vital Signs Date Time Temp Pulse Resp B/P (MAP) Pulse Ox O2 Delivery O2 Flow Rate FiO2 05/23/21 10:01 90 131/76 (94) 87 Nasal Cannula 4.0 05/23/21 08:30 45 05/23/21 08:00 98.7 18 I&O- Last 24 Hours up to 6 AM0 05/23/21 06:00 Intake Total 30 ml Output Total 250 ml Balance -220 ml Laboratory Data 24H LABS Laboratory Tests 2 05/22/21 12:59: Blood Gas Bicarbonate Standard 31.4H, Arterial Blood pH 7.286L, Arterial Blood Partial Pressure CO2 83.5*H, Arterial Blood Partial Pressure O2 56.3L, Arterial Blood Total CO2 41.5H, Arterial Blood HCO3 38.9H, Arterial Blood Base Excess 7.8H, Arterial Blood Oxygen Saturation 89.2L 05/22/21 21:51: Bedside Glucose (Misc Panel) 148H 05/23/21 03:34: Nucleated Red Blood Cells % (auto) 0.0, Anion Gap 0L, Glomerular Filtration Rate > 60.0, Calcium Level 9.0, Total Bilirubin 0.4, Aspartate Amino Transf (AST/SGOT) 49H, Alanine Aminotransferase (ALT/SGPT) 151H, Alkaline Phosphatase 76, Total Protein 7.8, Albumin 3.4, Albumin/Globulin Ratio 0.8, Procalcitonin 0.06 05/23/21 08:29: Blood Gas Bicarbonate Standard 34.4H, Arterial Blood pH 7.315L, Arterial Blood Partial Pressure CO2 82.6*H, Arterial Blood Partial Pressure O2 87.4, Arterial Blood Total CO2 43.7H, Arterial Blood HCO3 41.1H, Arterial Blood Base Excess 10.6H, Arterial Blood Oxygen Saturation 96.4 05/23/21 09:33: Bedside Glucose (Misc Panel) 152H CBC/BMP Laboratory Tests 05/23/21 03:34 Microbiology Microbiology 05/22/21 Blood Culture - Preliminary, Resulted No growth after 24 hours . All specim... 05/22/21 Blood Culture - Preliminary, Resulted No growth after 24 hours . All specim... DULCE REY MD May 23, 2021 11:55
--- NOTE | 2021-05-23 13:50 | IPNPDOC ---
Text Note Date of Service The patient was seen on 05/23/21. NOTE Subjective: No any acute events overnight. Patient stated that he is breathing markedly improved and he feels good. Objective: GENERAL APPEARANCE: NAD HEENT: no scleral icterus, no JVD, EOMI CARDIOVASCULAR: S1S2 LUNGS: Diminished lung sounds bilaterally ABDOMEN: soft & not tender w palpation MUSCULOSKELETAL: no cyanosis, no swelling INTEGUMENT: no generalized pallor NEUROLOGICAL: cranial nerve function from 2-12 intact, follows commands, speech not dysarthric Assessment/Plan Patient is a 55 years old male with past medical history of hypertension, diabetes type 2, obstructive sleep apnea, opioids abuse, COPD presented to hospital with increased shortness of breath. Patient stated that he has been having increased shortness of breath for past few weeks. Of note patient is active smoker. He denies any fever, chills, sputum production. He stated that he has intermittent dry cough. He denies any chest pain or palpitations. He reported that he use home oxygen as needed. In ER patient was found to have systolic blood pressure elevated 215, no leukocytosis, potassium 5.2. ABG showed pH 7.2, CO2 83.5. Chest x-ray did not show any acute pulmonary infiltrate. 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 (2) Obesity (BMI 30-39.9) Complicated care (3) Hypertensive urgency/hypertension Hypertensive urgency resolved Blood pressure under control I increased the dose of lisinopril to 40 mg daily (4) History of opioid abuse Continue Suboxone (5) Diabetes mellitus Diabetes diet Insulin sliding scale DVT prophylaxis with heparin VS,Fishbone, I+O VS, Fishbone, I+O Laboratory Tests 05/23/21 03:34 Vital Signs Date Time Temp Pulse Resp B/P (MAP) Pulse Ox O2 Delivery O2 Flow Rate FiO2 05/23/21 13:00 4.0 05/23/21 12:50 78 16 147/74 (98) 91 Nasal Cannula 05/23/21 08:30 45 05/23/21 08:00 98.7 I&O- Last 24 Hours up to 6 AM 05/23/21 06:00 Intake Total 30 ml Output Total 250 ml Balance -220 ml DROZHZHIN,PEDRO DO May 23, 2021 13:50
--- NOTE | 2021-05-23 20:37 | ECGEPIP ---
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
[2021-05-24] MEDS: IPRATROPIUM 0.5MG/ALBUTEROL 2.5MG INH SOL UD 3ML (DUONEB) NEB SCH ×2 (00:31→07:33)
[2021-05-24 06:00] VITALS: BP 132/82
[2021-05-24] MEDS: SYMBICORT 80/4.5MCG INHALER 6GM INH SCH (07:33)
[2021-05-24] MEDS: NICOTINE 21MG/24HR 1 EA TRANSDERMAL TD SCH (08:06)
[2021-05-24] MEDS: HEPARIN SOD (PORCINE) 5000UNITS/ML 1ML VIAL/SYRINGE SC SCH (08:06)
[2021-05-24] MEDS: HumaLOG INSULIN (NovoLOG) PER UNIT SC SCH (08:07)
[2021-05-24 08:09] VITALS: BP 134/78
[2021-05-24] MEDS: FUROSEMIDE 40 MG TAB PO SCH (08:10)
[2021-05-24] MEDS: BUPRENORPHINE/NALOXONE 8-2MG SUBLINGUAL TABLET(SUBOXONE) SL SCH (08:10)
[2021-05-24] MEDS: PANTOPRAZOLE 40MG TAB (PROTONIX) PO SCH (08:10)
[2021-05-24] MEDS: predniSONE 20 MG TAB PO SCH (08:10)
[2021-05-24] MEDS: CARVedilol 3.125 MG TAB PO SCH (08:10)
[2021-05-24] MEDS: ATORVASTATIN 20 MG TAB PO SCH (08:11)
[2021-05-24 09:02] LABS: ALBUMIN 3.3 GM/DL (3.2-5.2); ALT/SGPT 142 U/L (12-78); BILIRUBIN,TOTAL 0.3 MG/DL (0.2-1.0); BLOOD UREA NITROGEN 24 MG/DL (7-18); CALCIUM LEVEL 8.9 MG/DL (8.5-10.1); CARBON DIOXIDE LEVEL 41 MEQ/L (21-32); CHLORIDE LEVEL 97 MEQ/L (98-107); CREATININE FOR GFR 0.93 MG/DL (0.70-1.30); GLOMERULAR FILTRATION RATE > 60.0 (>56); GLUCOSE, FASTING 126 MG/DL (70-100); MAGNESIUM LEVEL 2.4 MG/DL (1.8-2.4); POTASSIUM SERUM 5.1 MEQ/L (3.5-5.1); SODIUM LEVEL 139 MEQ/L (136-145)
[2021-05-24] MEDS ORDERED: PANT40TA29 PO (11:16)
[2021-05-24] MEDS ORDERED: LISI10TA22 PO (11:16)
[2021-05-24] MEDS ORDERED: NICO21PAT TD (11:16)
[2021-05-24] MEDS ORDERED: PRED10TA2 PO (11:16)
--- NOTE | 2021-05-24 14:55 | DS.PDOC ---
Discharge Summary General Date of Admission May 22, 2021 at 14:00 Date of Discharge 05/24/21 Discharge Summary PROCEDURES PERFORMED DURING STAY: [None]. ADMITTING DIAGNOSES: Acute hypercapnic respiratory failure Obesity (BMI 30-39.9) Hypertensive urgency/hypertension History of opioid abuse Diabetes mellitus DISCHARGE DIAGNOSES: Acute hypercapnic respiratory failure Obesity (BMI 30-39.9) Hypertensive urgency/hypertension History of opioid abuse Diabetes mellitus Obstructive sleep apnea COMPLICATIONS/CHIEF COMPLAINT: Shortness Of Breath. HISTORY OF PRESENT ILLNESS: Patient is a 55 years old male with past medical history of hypertension, diabetes type 2, obstructive sleep apnea, opioids abuse, COPD presented to hospital with increased shortness of breath. Patient stated that he has been having increased shortness of breath for past few weeks. Of note patient is active smoker. He denies any fever, chills, sputum production. He stated that he has intermittent dry cough. He denies any chest pain or palpitations. He reported that he use home oxygen as needed. In ER patient was found to have systolic blood pressure elevated 215, no leukocytosis, potassium 5.2. ABG showed pH 7.2, CO2 83.5. Chest x-ray did not show any acute pulmonary infiltrate. EKG negative for acute ischemic changes HOSPITAL COURSE: During the hospital stay the following issue addressed (1) Acute hypercapnic respiratory failure Secondary to COPD exacerbation Versus obstructive sleep apnea versus obesity hypoventilation syndrome Patient received treatment with inhalers, IV steroids Incentive spirometry Continue monitor ABG Patient received treatment with BiPAP Patient will strongly benefit from pulmonary follow-up as outpatient as he will need to be evaluated for COPD and sleep disorder. He will need pulmonary functi on test and sleep study (2) Obesity (BMI 30-39.9) Complicated care (3) Hypertensive urgency/hypertension Hypertensive urgency resolved Blood pressure under control I increased the dose of lisinopril to 40 mg daily DISCHARGE MEDICATIONS: Please see below. ALLERGIES: Please see below. PHYSICAL EXAMINATION ON DISCHARGE: VITAL SIGNS: Please see below. Physical Examination General Exam: Positive: Alert, Cooperative Eye Exam: Positive: PERRLA ENT Exam: Positive: Atraumatic Neck Exam: Positive: Supple; Negative: JVD Chest Exam: Positive: Clear to auscultation, Normal air movement, Other (Distant breath sounds) Heart Exam: Positive: Rate Normal Telemetry: Positive: No significant arrhythmia Abdomen Exam: Positive: Normal bowel sounds Extremity Exam: Positive: Swelling, Other (Chronic lower extremity venous stasis changes.); Negative: Clubbing Skin Exam: Positive: Nl turgor and temperature Neuro Exam: Positive: Cranial Nerves 3-12 NL Psych Exam: Positive: Mental status NL, Oriented x 3 LABORATORY DATA: Please see below. PROGNOSIS: Fair ACTIVITY: [As tolerated]. DIET: Cardiac DISPOSITION: Home, Self-Care. DISCHARGE INSTRUCTIONS: Decrease calories intake, follow strict diet, sleep study Stop smoking ITEMS TO FOLLOWUP ON ON OUTPATIENT: Follow-up with card cleaner and PCP DISCHARGE CONDITION: [Stable]. TIME SPENT ON DISCHARGE: 40 minutes. Vital Signs/I&Os Vital Signs Date Time Temp Pulse Resp B/P (MAP) Pulse Ox O2 Delivery O2 Flow Rate FiO2 05/24/21 09:00 3.0 05/24/21 08:10 72 05/24/21 08:09 134/78 05/24/21 06:00 97.8 20 95 Nasal Cannula 05/23/21 08:30 45 I&O- Last 24 Hours up to 6 AM 05/24/21 05:59 Intake Total 1506 ml Output Total 1800 ml Balance -294 ml Laboratory Data Labs 24H Laboratory Tests 2 05/23/21 16:35: Bedside Glucose (Misc Panel) 160H 05/23/21 19:45: Bedside Glucose (Misc Panel) 146H 05/24/21 05:57: Bedside Glucose (Misc Panel) 129H 05/24/21 08:04: Anion Gap 1L, Glomerular Filtration Rate > 60.0, Calcium Level 8.9, Magnesium Level 2.4, Total Bilirubin 0.3, Aspartate Amino Transf (AST/SGOT) 52H, Alanine Aminotransferase (ALT/SGPT) 142H, Alkaline Phosphatase 71, Total Protein 7.0, Albumin 3.3, Albumin/Globulin Ratio 0.9 05/24/21 10:18: Bedside Glucose (Misc Panel) 117H CBC/BMP Laboratory Tests 05/24/21 08:04 FSBS Laboratory Tests Test 05/23/21 16:35 05/23/21 19:45 05/24/21 05:57 05/24/21 10:18 Range/Units Bedside Glucose (Misc Panel) 160 146 129 117 70-105 MG/DL Microbiology Microbiology 05/22/21 Blood Culture - Preliminary, Resulted No Growth after 48 hours. All Specime... 05/22/21 Blood Culture - Preliminary, Resulted No Growth after 48 hours. All Specime... Discharge Medications Scheduled Atorvastatin Calcium (Atorvastatin Calcium) 20 Mg Tablet, 20 MG PO DAILY, (Reported) Buprenorphine HCl/Naloxone HCl (Suboxone 8 mg-2 mg Sl Film) 1 Mis Mis, 1 FILM SL BID, (Reported) Carvedilol (Carvedilol) 3.125 Mg Tablet, 3.125 MG PO BID, (Reported) Furosemide (Furosemide) 40 Mg Tablet, 40 MG PO DAILY, (Reported) Ipratropium/Albuterol Sulfate (Combivent Respimat 20-100 Mcg) 4 Gm Mist.inhal, 1 PUFF INH Q6H, (Reported) Lisinopril (Lisinopril) 10 Mg Tablet, 40 MG PO DAILY Metformin HCl (Metformin HCl) 500 Mg Tablet, 500 MG PO BID, (Reported) Nicotine (Nicotine Patch) 21 Mg Patch.td24, 1 PATCH TD DAILY Pantoprazole Sodium (Pantoprazole Sodium) 40 Mg Tablet.dr, 40 MG PO DAILY Prednisone (Prednisone) 10 Mg Tablet, 10 MG PO TAPER Take 4 tabs daily x 3 days, then 3 tabs daily x 3 days, then 2 tabs daily x 3 days, then 1 tab daily x 3 days and stop Allergies Coded Allergies: No Known Allergies (Unverified , 03/10/18) PEDRO ZARATE DO May 24, 2021 14:55
== END 2021-05-24 11:57 | disposition home or self-care (01) | DRG 133 ==
LOC: M ED 09:16 → EDBD 09:16 → M ED INP 14:00 → M PCU 21:28 → M MSPAV 05-23 12:49
PROVIDERS: ADMIT Internal Medicine; ATTEND Internal Medicine
DX: J96.02 Acute respiratory failure with hypercapnia (principal); E66.2 Morbid (severe) obesity with alveolar hypoventilation; Z99.81 Dependence on supplemental oxygen; J44.9 Chronic obstructive pulmonary disease, unspecified; I10 Essential (primary) hypertension; E11.9 Type 2 diabetes mellitus without complications; F11.11 Opioid abuse, in remission; Z79.899 Other long term (current) drug therapy; Z79.84 Long term (current) use of oral hypoglycemic drugs; F17.210 Nicotine dependence, cigarettes, uncomplicated; Z20.822 Contact with and (suspected) exposure to COVID-19; Z68.39 Body mass index [BMI] 39.0-39.9, adult; I16.0 Hypertensive urgency

== ENCOUNTER → 2022-10-27 | Outpatient (CLI) | payer OTHER ==
[~2022-10-27] MED LIST changes: +METF500T13 PO; +NICO21PAT TD; +PANT40TA29 PO
[2022-10-27 16:00] LABS: BLOOD UREA NITROGEN 18 MG/DL (9-23); CALCIUM LEVEL 9.5 MG/DL (8.5-10.1); CARBON DIOXIDE LEVEL 39 MMOL/L (20-31); CHLORIDE LEVEL 100 MMOL/L (98-107); CREATININE FOR GFR 1.04 MG/DL (0.70-1.30); GLOMERULAR FILTRATION RATE > 60.0 (>56); GLUCOSE, FASTING 108 MG/DL (60-100); POTASSIUM SERUM 5.1 MMOL/L (3.5-5.1); SODIUM LEVEL 140 MMOL/L (136-145)
== END ==
LOC: M PLALAB 14:08
PROVIDERS: ATTEND Student in an Organized Health Care Education/Training Program
DX: E11.9 Type 2 diabetes mellitus without complications (principal); M79.605 Pain in left leg

== ENCOUNTER → 2022-10-27 | Outpatient (REF) | payer OTHER | LOC: M SFHCPLAZ 14:02 | PROVIDERS: ATTEND Family Medicine | DX: Z53.20 Procedure and treatment not carried out because of patient's decision for unspecified reasons (principal) ==

== ENCOUNTER → 2022-10-28 | Outpatient (REF) | payer OTHER | LOC: M SFHCPLAZ 18:44 | PROVIDERS: ATTEND Family Medicine | DX: Z53.9 Procedure and treatment not carried out, unspecified reason (principal) ==

== ENCOUNTER → 2022-12-18 | Outpatient (CLI) | payer OTHER | LOC: M RAD 13:12 | PROVIDERS: ATTEND Student in an Organized Health Care Education/Training Program | DX: R09.89 Other specified symptoms and signs involving the circulatory and respiratory systems (principal); I70.213 Atherosclerosis of native arteries of extremities with intermittent claudication, bilateral legs ==

== ENCOUNTER → 2023-01-01 | Outpatient (CLI) | payer OTHER ==
[~2023-01-01] MED LIST changes: +ALBU8.5H INH; +ATOR40TA75 PO; +CEPH500T PO; +LISI30TA4 PO
== END ==
LOC: M WHC 11:18
PROVIDERS: ATTEND Student in an Organized Health Care Education/Training Program
DX: M79.89 Other specified soft tissue disorders (principal)

== ENCOUNTER 2023-02-04 22:56 | Inpatient (IN) | payer OTHER ==
[~2023-02-04] VITALS: Ht 177.8 cm; Wt 130.6 kg
[~2023-02-04 22:56] MED LIST changes: +AMLO1TAB25 PO; +SYMB16INH INH; +TIOT18INH INH
[2023-02-04] MEDS: IPRATROPIUM 0.5MG/ALBUTEROL 2.5MG INH SOL UD 3ML (DUONEB) NEB PRN ×3 (23:04→23:18)
[2023-02-04] MEDS ORDERED: FUROSEMIDE 40MG/4ML VIAL IV ONE (23:05)
[2023-02-04] MEDS ORDERED: methylPREDNISolone 125MG 2ML VIAL IV ONE (23:05)
[2023-02-04 23:37] LABS: BASO # 0.1 10^3/uL (0.0-0.2); BASO % 0.7 % (0.0-1.0); EOS % 0.4 % (0.0-3.0); HEMATOCRIT 44.8 % (42.0-52.0); HEMOGLOBIN 13.9 g/dl (13.5-17.5); LYMPH # 1.2 10^3/uL (1.5-5.0); LYMPH % 12.1 % (24.0-44.0); MEAN CORPUSCULAR HEMOGLOBIN 30.1 pg (27.0-33.0); MONO # 0.7 10^3/uL (0.0-0.8); PLATELET COUNT, AUTOMATED 258 10^3/uL (150-450); RED BLOOD COUNT 4.62 10^6/uL (4.30-6.10); WHITE BLOOD COUNT 10.1 10^3/uL (4.0-10.0)
[2023-02-04 23:53] LABS: ALBUMIN 3.4 G/DL (3.2-5.2); ALKALINE PHOSPHATASE 96 U/L (46-116); ALT/SGPT 136 U/L (7.0-40); AST/SGOT 70 U/L (<34); BILIRUBIN,DIRECT 0.2 MG/DL (<0.4); BILIRUBIN,TOTAL 0.4 MG/DL (0.3-1.2); BLOOD UREA NITROGEN 26 MG/DL (9-23); CALCIUM LEVEL 8.6 MG/DL (8.5-10.1); CARBON DIOXIDE LEVEL 34 MMOL/L (20-31); CHLORIDE LEVEL 99 MMOL/L (98-107); CK-MB VALUE MASS 3.4 NG/ML (<3.6); CREATININE FOR GFR 0.97 MG/DL (0.70-1.30); GLOMERULAR FILTRATION RATE > 60.0 (>56); GLUCOSE, FASTING 122 MG/DL (60-100); POTASSIUM SERUM 5.8 MMOL/L (3.5-5.1); SODIUM LEVEL 136 MMOL/L (136-145); TOTAL PROTEIN 7.3 G/DL (5.7-8.2)
[2023-02-04 23:54] LABS: CPK CREATINE PHOSPHOKINASE 119 U/L (46-171); MB/CK RELATIVE INDEX 2.85 (< OR =4)
[2023-02-05] VITALS (17 sets, daily range): BP systolic 103–150; BP diastolic 57–79; TEMP 97.9–98.9; O2SAT 88–100
[2023-02-05] MEDS ORDERED: PIPERACILLIN/TAZOBACTAM SOD 4.5 GM in D5W MINI-BAG PLUS 50 ML IV ONE ×2
[2023-02-05] MEDS ORDERED: ISOVUE-370 76% 100ML VIAL As Ordered ONE (00:14)
[2023-02-05] MEDS ORDERED: ACETAMINOPHEN 1000MG 100ML IV BAG IV ONE (00:20)
[2023-02-05 02:19] LABS: CK-MB VALUE MASS 2.3 NG/ML (<3.6); MB/CK RELATIVE INDEX 2.55 (< OR =4)
[2023-02-05] MEDS ORDERED: MED REC CURRENTLY UNOBTAINABLE XX SCH (03:30)
[2023-02-05] MEDS ORDERED: ALBUTEROL SULFATE 2.5MG/0.5ML INH NEB SOLN NEB PRN (04:10)
[2023-02-05] MEDS ORDERED: GLUCAGON INJ 1MG VIAL SC PRN (04:10)
[2023-02-05] MEDS ORDERED: DEXTROSE 50% 50ML SYRINGE IV PRN (04:10)
[2023-02-05] MEDS ORDERED: GLUCOSE 4GM CHEW TABLET PO PRN (04:10)
[2023-02-05] MEDS ORDERED: NS 1,000 ML IV SCH (05:00)
[2023-02-05] MEDS ORDERED: INSULIN LISPRO (NovoLOG) PER UNIT SC SCH (06:00)
[2023-02-05] MEDS: methylPREDNISolone 40MG 1ML VIAL IV SCH ×4 (06:18→23:00)
[2023-02-05 07:21] LABS: BLOOD UREA NITROGEN 30 MG/DL (9-23); CALCIUM LEVEL 8.3 MG/DL (8.5-10.1); CARBON DIOXIDE LEVEL 36 MMOL/L (20-31); CHLORIDE LEVEL 98 MMOL/L (98-107); CREATININE FOR GFR 1.06 MG/DL (0.70-1.30); GLOMERULAR FILTRATION RATE > 60.0 (>56); GLUCOSE, FASTING 170 MG/DL (60-100); POTASSIUM SERUM 5.8 MMOL/L (3.5-5.1); SODIUM LEVEL 135 MMOL/L (136-145)
[2023-02-05] MEDS: PIPERACILLIN/TAZOBACTAM SOD 4.5 GM in D5W MINI-BAG PLUS 50 ML IV SCH ×3 (07:33→20:15)
[2023-02-05 07:34] LABS: HEMATOCRIT 43.4 % (42.0-52.0); HEMOGLOBIN 13.4 g/dl (13.5-17.5); MEAN CORPUSCULAR HEMOGLOBIN 30.2 pg (27.0-33.0); MEAN CORPUSCULAR HGB CONC 30.9 g/dl (32.0-36.5); MEAN CORPUSCULAR VOLUME 97.7 fl (80.0-96.0); PLATELET COUNT, AUTOMATED 188 10^3/uL (150-450); RED BLOOD COUNT 4.44 10^6/uL (4.30-6.10); WHITE BLOOD COUNT 7.9 10^3/uL (4.0-10.0)
[2023-02-05 07:41] LABS: PROCALCITONIN 0.12 ng/ml
[2023-02-05] MEDS: IPRATROPIUM 0.5MG/ALBUTEROL 2.5MG INH SOL UD 3ML (DUONEB) NEB SCH ×3 (07:49→19:16)
[2023-02-05 08:16] LABS: ABG BASE EXCESS 1.7 (-2.0-2.0); ABG HCO3 28.8 MMOL/L (22.0-26.0); ABG O2 SATURATION 97.5 % (95.0-99.0); ABG PARTIAL PRESSURE CO2 55.8 mmHg (35.0-45.0); ABG PARTIAL PRESSURE O2 103.8 mmHg (75.0-100.0); ABG TOTAL CO2 30.5 MMOL/L (22.0-29.0)
[2023-02-05] MEDS: BUDESONIDE 0.5 MG/2 ML INHALATION SUSPENSION INH SCH ×2 (08:41→19:16)
[2023-02-05 09:34] LABS: BARBITURATES URINE NEGATIVE (NEGATIVE)
[2023-02-05 09:35] LABS: BENZODIAZEPINES URINE NEGATIVE (NEGATIVE); CANNABINOIDS URINE NEGATIVE (NEGATIVE); COCAINE METABOLITE URINE NEGATIVE (NEGATIVE); METHADONE URINE NEGATIVE (NEGATIVE); OPIATES URINE NEGATIVE (NEGATIVE); PHENCYCLIDINE URINE NEGATIVE (NEGATIVE)
[2023-02-05 09:37] LABS: AMPHETAMINES LEVEL URINE POSITIVE (NEGATIVE)
[2023-02-05 11:08] LABS: ETHYL ALCOHOL (ETHANOL) 0.004 % (0.000-0.010)
[2023-02-05] MEDS: INSULIN LISPRO (NovoLOG) PER UNIT SC SCH ×3 (12:09→20:23)
[2023-02-05] MEDS: AZITHROMYCIN 250MG TABLET PO SCH (12:10)
[2023-02-05] MEDS ORDERED: GLYCOPYRROLATE INJ 0.2 MG/ML 2 ML VIAL As Ordered ONE (12:19)
[2023-02-05] MEDS ORDERED: propofoL 200 MG/20 ML VIAL As Ordered ONE (12:19)
[2023-02-05] MEDS ORDERED: LIDOCAINE 2% 100MG/5ML SDV (FOR ANES.) As Ordered ONE (12:19)
[2023-02-05] MEDS ORDERED: HOME MED LIST COMPLETE! XX SCH (13:20)
[2023-02-05] MEDS: HEPARIN SOD (PORCINE) 5000UNITS/ML 1ML VIAL/SYRINGE SC SCH ×2 (14:03→22:59)
[2023-02-05] MEDS ORDERED: PILL CUTTER 1 EACH XX PRN (19:30)
[2023-02-05] MEDS: FAMOTIDINE 20 MG TAB PO SCH (20:16)
[2023-02-05] MEDS: BUPRENORPHINE/NALOXONE 8-2MG SUBLINGUAL TABLET(SUBOXONE) SL SCH (20:17)
[2023-02-06] VITALS (12 sets, daily range): BP systolic 130–195; BP diastolic 66–95; TEMP 97–99; O2SAT 89–98
[2023-02-06] MEDS: IPRATROPIUM 0.5MG/ALBUTEROL 2.5MG INH SOL UD 3ML (DUONEB) NEB SCH ×4 (01:16→19:48)
[2023-02-06] MEDS: PIPERACILLIN/TAZOBACTAM SOD 4.5 GM in D5W MINI-BAG PLUS 50 ML IV SCH ×4 (02:00→21:39)
[2023-02-06] MEDS: methylPREDNISolone 40MG 1ML VIAL IV SCH (05:07)
[2023-02-06] MEDS: HEPARIN SOD (PORCINE) 5000UNITS/ML 1ML VIAL/SYRINGE SC SCH ×3 (05:07→21:39)
[2023-02-06 05:29] LABS: HEMATOCRIT 43.6 % (42.0-52.0); HEMOGLOBIN 13.6 g/dl (13.5-17.5); MEAN CORPUSCULAR HEMOGLOBIN 29.2 pg (27.0-33.0); MEAN CORPUSCULAR HGB CONC 31.2 g/dl (32.0-36.5); MEAN CORPUSCULAR VOLUME 93.8 fl (80.0-96.0); PLATELET COUNT, AUTOMATED 247 10^3/uL (150-450); RED BLOOD COUNT 4.65 10^6/uL (4.30-6.10); WHITE BLOOD COUNT 15.6 10^3/uL (4.0-10.0)
[2023-02-06] MEDS: ACETAMINOPHEN TAB 650MG DOSE (2X325MG) PO PRN (05:29)
[2023-02-06 05:33] LABS: ABG BASE EXCESS 5.7 (-2.0-2.0); ABG HCO3 32.7 MMOL/L (22.0-26.0); ABG O2 SATURATION 92.7 % (95.0-99.0); ABG PARTIAL PRESSURE CO2 56.9 mmHg (35.0-45.0); ABG PARTIAL PRESSURE O2 65.8 mmHg (75.0-100.0); ABG STANDARD HCO3 29.5 MMOL/L. (22.0-26.0); ABG TOTAL CO2 34.4 MMOL/L (22.0-29.0); ABG pH (ARTERIAL) 7.377 UNITS (7.350-7.450)
[2023-02-06 05:49] LABS: BLOOD UREA NITROGEN 33 MG/DL (9-23); CALCIUM LEVEL 8.7 MG/DL (8.5-10.1); CARBON DIOXIDE LEVEL 34 MMOL/L (20-31); CHLORIDE LEVEL 99 MMOL/L (98-107); CREATININE FOR GFR 0.75 MG/DL (0.70-1.30); GLOMERULAR FILTRATION RATE > 60.0 (>56); GLUCOSE, FASTING 174 MG/DL (60-100); MAGNESIUM LEVEL 1.8 MG/DL (1.8-2.4); POTASSIUM SERUM 5.1 MMOL/L (3.5-5.1); SODIUM LEVEL 134 MMOL/L (136-145)
[2023-02-06 06:01] LABS: PROCALCITONIN 0.06 ng/ml
[2023-02-06] MEDS: BUPRENORPHINE/NALOXONE 8-2MG SUBLINGUAL TABLET(SUBOXONE) SL SCH ×2 (08:16→21:39)
[2023-02-06] MEDS: AZITHROMYCIN 250MG TABLET PO SCH (08:17)
[2023-02-06] MEDS: INSULIN LISPRO (NovoLOG) PER UNIT SC SCH ×4 (08:18→21:00)
[2023-02-06] MEDS: predniSONE 20 MG TAB PO SCH (12:38)
[2023-02-06] MEDS: BUPRENORPHINE/NALOXONE 8-2MG SUBLINGUAL TABLET(SUBOXONE) PO SCH (15:04)
[2023-02-06] MEDS: ATORVASTATIN 20 MG TAB PO SCH (15:44)
[2023-02-06] MEDS: CARVedilol 3.125 MG TAB PO SCH ×2 (18:00→21:39)
[2023-02-06] MEDS: FAMOTIDINE 20 MG TAB PO SCH (21:38)
[2023-02-07] MEDS: IPRATROPIUM 0.5MG/ALBUTEROL 2.5MG INH SOL UD 3ML (DUONEB) NEB SCH ×4 (01:06→20:11)
[2023-02-07] MEDS: PIPERACILLIN/TAZOBACTAM SOD 4.5 GM in D5W MINI-BAG PLUS 50 ML IV SCH ×4 (02:47→21:27)
[2023-02-07 05:29] LABS: BASO % 0.1 % (0.0-1.0); HEMATOCRIT 44.2 % (42.0-52.0); HEMOGLOBIN 13.9 g/dl (13.5-17.5); MEAN CORPUSCULAR HEMOGLOBIN 29.6 pg (27.0-33.0); MEAN CORPUSCULAR HGB CONC 31.4 g/dl (32.0-36.5); MONO % 7.2 % (2.0-8.0); NEUTROPHILS # 11.3 10^3/uL (1.5-8.5); NEUTROPHILS % 78.3 % (36.0-66.0); PLATELET COUNT, AUTOMATED 252 10^3/uL (150-450); WHITE BLOOD COUNT 14.4 10^3/uL (4.0-10.0)
[2023-02-07 05:50] LABS: BLOOD UREA NITROGEN 23 MG/DL (9-23); CALCIUM LEVEL 8.4 MG/DL (8.5-10.1); CARBON DIOXIDE LEVEL 33 MMOL/L (20-31); CHLORIDE LEVEL 97 MMOL/L (98-107); CREATININE FOR GFR 0.72 MG/DL (0.70-1.30); GLOMERULAR FILTRATION RATE > 60.0 (>56); GLUCOSE, FASTING 192 MG/DL (60-100); MAGNESIUM LEVEL 1.7 MG/DL (1.8-2.4); POTASSIUM SERUM 4.8 MMOL/L (3.5-5.1); SODIUM LEVEL 137 MMOL/L (136-145)
[2023-02-07 06:00] VITALS: BP 164/82; TEMP 98.8; O2SAT 91
[2023-02-07] MEDS: HEPARIN SOD (PORCINE) 5000UNITS/ML 1ML VIAL/SYRINGE SC SCH ×3 (06:18→21:27)
[2023-02-07] MEDS ORDERED: MAGNESIUM OXIDE 400MG TAB (MAG-OX) PO ONE (07:45)
[2023-02-07 08:00] VITALS: O2SAT 94
[2023-02-07] MEDS: AZITHROMYCIN 250MG TABLET PO SCH (08:14)
[2023-02-07] MEDS: ATORVASTATIN 20 MG TAB PO SCH (08:14)
[2023-02-07] MEDS: BUPRENORPHINE/NALOXONE 8-2MG SUBLINGUAL TABLET(SUBOXONE) SL SCH ×2 (08:14→21:26)
[2023-02-07] MEDS: predniSONE 20 MG TAB PO SCH (08:14)
[2023-02-07] MEDS: INSULIN LISPRO (NovoLOG) PER UNIT SC SCH ×4 (08:15→21:00)
[2023-02-07 14:44] VITALS: BP 158/80; TEMP 98.1; O2SAT 92
[2023-02-07] MEDS: BUPRENORPHINE/NALOXONE 8-2MG SUBLINGUAL TABLET(SUBOXONE) PO SCH (14:49)
[2023-02-07 21:18] VITALS: BP 170/78; TEMP 98.4; O2SAT 90
[2023-02-07] MEDS: FAMOTIDINE 20 MG TAB PO SCH (21:26)
[2023-02-07] MEDS: CARVedilol 3.125 MG TAB PO SCH (21:27)
[2023-02-07 22:37] VITALS: BP 143/76
[2023-02-07 22:44] VITALS: O2SAT 97
[2023-02-08] MEDS: IPRATROPIUM 0.5MG/ALBUTEROL 2.5MG INH SOL UD 3ML (DUONEB) NEB SCH ×4 (01:05→20:16)
[2023-02-08] MEDS: PIPERACILLIN/TAZOBACTAM SOD 4.5 GM in D5W MINI-BAG PLUS 50 ML IV SCH ×2 (01:14→08:25)
[2023-02-08] MEDS: ACETAMINOPHEN TAB 650MG DOSE (2X325MG) PO PRN (05:11)
[2023-02-08] MEDS: HEPARIN SOD (PORCINE) 5000UNITS/ML 1ML VIAL/SYRINGE SC SCH ×3 (05:12→20:57)
[2023-02-08 05:34] LABS: BASO % 0.2 % (0.0-1.0); EOS # 0.1 10^3/uL (0.0-0.5); EOS % 0.7 % (0.0-3.0); HEMATOCRIT 46.1 % (42.0-52.0); HEMOGLOBIN 14.3 g/dl (13.5-17.5); LYMPH # 2.3 10^3/uL (1.5-5.0); LYMPH % 20.4 % (24.0-44.0); MEAN CORPUSCULAR HEMOGLOBIN 29.2 pg (27.0-33.0); MEAN CORPUSCULAR VOLUME 94.1 fl (80.0-96.0); MONO # 1.1 10^3/uL (0.0-0.8); MONO % 9.8 % (2.0-8.0); NEUTROPHILS # 7.7 10^3/uL (1.5-8.5); NEUTROPHILS % 68.5 % (36.0-66.0); PLATELET COUNT, AUTOMATED 266 10^3/uL (150-450); WHITE BLOOD COUNT 11.2 10^3/uL (4.0-10.0)
[2023-02-08 06:00] VITALS: BP 136/90; TEMP 98.1; O2SAT 94
[2023-02-08 06:02] LABS: BLOOD UREA NITROGEN 18 MG/DL (9-23); CALCIUM LEVEL 8.8 MG/DL (8.5-10.1); CARBON DIOXIDE LEVEL 34 MMOL/L (20-31); CHLORIDE LEVEL 98 MMOL/L (98-107); CREATININE FOR GFR 0.82 MG/DL (0.70-1.30); GLOMERULAR FILTRATION RATE > 60.0 (>56); GLUCOSE, FASTING 127 MG/DL (60-100); MAGNESIUM LEVEL 1.7 MG/DL (1.8-2.4); POTASSIUM SERUM 4.5 MMOL/L (3.5-5.1); SODIUM LEVEL 137 MMOL/L (136-145)
[2023-02-08] MEDS: ATORVASTATIN 20 MG TAB PO SCH (08:25)
[2023-02-08] MEDS: predniSONE 20 MG TAB PO SCH (08:26)
[2023-02-08] MEDS: BUPRENORPHINE/NALOXONE 8-2MG SUBLINGUAL TABLET(SUBOXONE) SL SCH ×2 (08:26→20:57)
[2023-02-08] MEDS: CARVedilol 3.125 MG TAB PO SCH ×2 (08:26→20:58)
[2023-02-08] MEDS: INSULIN LISPRO (NovoLOG) PER UNIT SC SCH ×4 (08:27→20:52)
[2023-02-08] MEDS ORDERED: MAGNESIUM OXIDE 400MG TAB (MAG-OX) PO ONE (09:00)
[2023-02-08 14:00] VITALS: BP 153/81; TEMP 98.1; O2SAT 90
[2023-02-08] MEDS: BUPRENORPHINE/NALOXONE 8-2MG SUBLINGUAL TABLET(SUBOXONE) PO SCH (16:18)
[2023-02-08 20:53] VITALS: BP 172/84; TEMP 99; O2SAT 98
[2023-02-08] MEDS: AUGMENTIN 875 MG TAB PO SCH (20:57)
[2023-02-08] MEDS: FAMOTIDINE 20 MG TAB PO SCH (20:57)
[2023-02-09] MEDS: IPRATROPIUM 0.5MG/ALBUTEROL 2.5MG INH SOL UD 3ML (DUONEB) NEB SCH ×2 (00:52→07:43)
[2023-02-09] MEDS: ACETAMINOPHEN TAB 650MG DOSE (2X325MG) PO PRN ×2 (00:58→05:28)
[2023-02-09] MEDS: HEPARIN SOD (PORCINE) 5000UNITS/ML 1ML VIAL/SYRINGE SC SCH (05:23)
[2023-02-09 06:00] VITALS: BP 147/85; TEMP 98.2; O2SAT 95
[2023-02-09 06:32] LABS: BASO % 0.3 % (0.0-1.0); EOS # 0.2 10^3/uL (0.0-0.5); EOS % 1.4 % (0.0-3.0); HEMATOCRIT 47.2 % (42.0-52.0); LYMPH # 2.8 10^3/uL (1.5-5.0); LYMPH % 23.5 % (24.0-44.0); MEAN CORPUSCULAR HEMOGLOBIN 29.9 pg (27.0-33.0); MEAN CORPUSCULAR HGB CONC 31.8 g/dl (32.0-36.5); MONO # 1.1 10^3/uL (0.0-0.8); MONO % 9.1 % (2.0-8.0); NEUTROPHILS # 7.6 10^3/uL (1.5-8.5); PLATELET COUNT, AUTOMATED 265 10^3/uL (150-450); RED BLOOD COUNT 5.02 10^6/uL (4.30-6.10); WHITE BLOOD COUNT 11.7 10^3/uL (4.0-10.0)
[2023-02-09 06:50] LABS: BLOOD UREA NITROGEN 14 MG/DL (9-23); CALCIUM LEVEL 9.1 MG/DL (8.5-10.1); CARBON DIOXIDE LEVEL 35 MMOL/L (20-31); CHLORIDE LEVEL 99 MMOL/L (98-107); CREATININE FOR GFR 0.73 MG/DL (0.70-1.30); GLOMERULAR FILTRATION RATE > 60.0 (>56); GLUCOSE, FASTING 99 MG/DL (60-100); MAGNESIUM LEVEL 1.7 MG/DL (1.8-2.4); POTASSIUM SERUM 4.4 MMOL/L (3.5-5.1); SODIUM LEVEL 140 MMOL/L (136-145)
[2023-02-09] MEDS: INSULIN LISPRO (NovoLOG) PER UNIT SC SCH (07:30)
[2023-02-09] MEDS ORDERED: MAGNESIUM OXIDE 400MG TAB (MAG-OX) PO ONE (08:00)
[2023-02-09] MEDS: AUGMENTIN 875 MG TAB PO SCH (08:25)
[2023-02-09] MEDS: BUPRENORPHINE/NALOXONE 8-2MG SUBLINGUAL TABLET(SUBOXONE) SL SCH (08:25)
[2023-02-09] MEDS: ATORVASTATIN 20 MG TAB PO SCH (08:26)
[2023-02-09] MEDS: predniSONE 20 MG TAB PO SCH (08:26)
[2023-02-09 08:27] VITALS: BP 161/88
[2023-02-09] MEDS: CARVedilol 3.125 MG TAB PO SCH (08:27)
[2023-02-09] MEDS ORDERED: AMOX875T2 PO (08:44)
[2023-02-09] MEDS ORDERED: PRED20TA PO (08:44)
[2023-02-09] MEDS ORDERED: ACET1TAB55 PO (08:44)
== END 2023-02-09 10:42 | disposition home or self-care (01) | DRG 720 ==
LOC: EDBD 22:56 → M ED 22:56 → M ED INP 02-05 03:19 → M ICU 02-05 05:25 → M MSPAV 02-06 16:44
PROVIDERS: ADMIT Internal Medicine Critical Care Medicine; ATTEND Family Medicine
DX: A41.9 Sepsis, unspecified organism (principal); J96.01 Acute respiratory failure with hypoxia; G93.41 Metabolic encephalopathy; I11.0 Hypertensive heart disease with heart failure; J18.9 Pneumonia, unspecified organism; F11.20 Opioid dependence, uncomplicated; E87.5 Hyperkalemia; J96.02 Acute respiratory failure with hypercapnia; I50.32 Chronic diastolic (congestive) heart failure; K76.0 Fatty (change of) liver, not elsewhere classified; Z99.81 Dependence on supplemental oxygen; J44.0 Chronic obstructive pulmonary disease with (acute) lower respiratory infection; J44.1 Chronic obstructive pulmonary disease with (acute) exacerbation; E66.9 Obesity, unspecified; Z68.41 Body mass index [BMI] 40.0-44.9, adult; Z79.84 Long term (current) use of oral hypoglycemic drugs; Z79.899 Other long term (current) drug therapy; E11.9 Type 2 diabetes mellitus without complications; I87.2 Venous insufficiency (chronic) (peripheral); K21.9 Gastro-esophageal reflux disease without esophagitis; L03.116 Cellulitis of left lower limb; L03.115 Cellulitis of right lower limb

== ENCOUNTER → 2023-02-15 | Outpatient (REF) | payer OTHER ==
[~2023-02-15] MED LIST changes: +ACET1TAB55 PO; +AMOX875T2 PO
== END ==
LOC: M SFHCPLAZ 15:41
PROVIDERS: ATTEND Family Medicine
DX: Z53.9 Procedure and treatment not carried out, unspecified reason (principal)

== ENCOUNTER → 2023-02-22 | Outpatient (CLI) | payer OTHER ==
[2023-02-22 17:34] LABS: BASO # 0.1 10^3/uL (0.0-0.2); BASO % 0.8 % (0.0-1.0); EOS # 0.3 10^3/uL (0.0-0.5); EOS % 3.3 % (0.0-3.0); HEMATOCRIT 48.6 % (42.0-52.0); HEMOGLOBIN 15.1 g/dl (13.5-17.5); LYMPH # 2.3 10^3/uL (1.5-5.0); LYMPH % 26.9 % (24.0-44.0); MEAN CORPUSCULAR HEMOGLOBIN 29.4 pg (27.0-33.0); MEAN CORPUSCULAR HGB CONC 31.1 g/dl (32.0-36.5); MEAN CORPUSCULAR VOLUME 94.6 fl (80.0-96.0); MONO # 0.8 10^3/uL (0.0-0.8); MONO % 9.5 % (2.0-8.0); PLATELET COUNT, AUTOMATED 262 10^3/uL (150-450); RED BLOOD COUNT 5.14 10^6/uL (4.30-6.10); WHITE BLOOD COUNT 8.5 10^3/uL (4.0-10.0)
[2023-02-22 18:04] LABS: BLOOD UREA NITROGEN 25 MG/DL (9-23); CALCIUM LEVEL 10.2 MG/DL (8.5-10.1); CARBON DIOXIDE LEVEL 38 MMOL/L (20-31); CHLORIDE LEVEL 96 MMOL/L (98-107); CPK CREATINE PHOSPHOKINASE 66 U/L (46-171); CREATININE FOR GFR 1.07 MG/DL (0.70-1.30); GLOMERULAR FILTRATION RATE > 60.0 (>56); GLUCOSE, FASTING 122 MG/DL (60-100); POTASSIUM SERUM 4.2 MMOL/L (3.5-5.1); SODIUM LEVEL 138 MMOL/L (136-145)
== END ==
LOC: M PLALAB 14:51
PROVIDERS: ATTEND Student in an Organized Health Care Education/Training Program
DX: L03.115 Cellulitis of right lower limb (principal); Z92.89 Personal history of other medical treatment

== ENCOUNTER → 2023-04-05 | Outpatient (CLI) | payer OTHER | LOC: M RAD 15:18 | PROVIDERS: ATTEND Student in an Organized Health Care Education/Training Program | DX: I82.402 Acute embolism and thrombosis of unspecified deep veins of left lower extremity (principal) ==

== ENCOUNTER → 2023-06-14 | Outpatient (CLI) | payer OTHER ==
[2023-06-14 16:07] LABS: HEMOGLOBIN A1c 6.4 % (4.0-6.0)
[2023-06-14 16:15] LABS: CHOLESTEROL RISK RATIO 2.22 (<5); LDL CHOLESTEROL 37.6 MG/DL (<100)
== END ==
LOC: M PLALAB 14:35
PROVIDERS: ATTEND Student in an Organized Health Care Education/Training Program
DX: E78.00 Pure hypercholesterolemia, unspecified (principal); E11.9 Type 2 diabetes mellitus without complications

== ENCOUNTER 2023-06-20 07:52 | Emergency (ER) | payer OTHER ==
[~2023-06-20] VITALS: Ht 177.8 cm; Wt 132.4 kg
[2023-06-20 07:53] VITALS: BP 179/81; TEMP 98.2; O2SAT 92
[2023-06-20] MEDS ORDERED: FLUT1BLS8 (08:05)
[2023-06-20] MEDS ORDERED: LEVOTAB10 PO (08:05)
[2023-06-20 09:08] LABS: VENOUS BASE EXCESS 3.7 (-2.0-2.0); VENOUS HCO3 32.2 MMOL/L (23.0-27.0); VENOUS O2 SATURATION 84.5 % (60.0-80.0); VENOUS PARTIAL PRESSURE CO2 66.4 mmHg (38.0-50.0); VENOUS PARTIAL PRESSURE O2 53.6 mmHg (30.0-50.0); VENOUS PH 7.303 UNITS (7.330-7.430); VENOUS STANDARD HCO3 27.4 MMOL/L; VENOUS TOTAL CO2 34.2 MMOL/L (24.0-28.0)
[2023-06-20] MEDS ORDERED: IPRATROPIUM 0.5MG/ALBUTEROL 2.5MG INH SOL UD 3ML (DUONEB) NEB ONE (09:10)
[2023-06-20 09:27] LABS: BASO # 0.1 10^3/uL (0.0-0.2); BASO % 0.5 % (0.0-1.0); EOS # 0.9 10^3/uL (0.0-0.5); EOS % 9.1 % (0.0-3.0); HEMATOCRIT 39.6 % (42.0-52.0); HEMOGLOBIN 12.8 g/dl (13.5-17.5); LYMPH # 2.2 10^3/uL (1.5-5.0); LYMPH % 22.9 % (24.0-44.0); MEAN CORPUSCULAR HEMOGLOBIN 30.8 pg (27.0-33.0); MEAN CORPUSCULAR HGB CONC 32.3 g/dl (32.0-36.5); MEAN CORPUSCULAR VOLUME 95.2 fl (80.0-96.0); MONO # 0.7 10^3/uL (0.0-0.8); MONO % 7.9 % (2.0-8.0); NEUTROPHILS # 5.6 10^3/uL (1.5-8.5); NEUTROPHILS % 59.4 % (36.0-66.0); PLATELET COUNT, AUTOMATED 305 10^3/uL (150-450); RED BLOOD COUNT 4.16 10^6/uL (4.30-6.10); WHITE BLOOD COUNT 9.4 10^3/uL (4.0-10.0)
[2023-06-20 09:39] LABS: ALBUMIN 3.3 G/DL (3.2-5.2); ALKALINE PHOSPHATASE 81 U/L (46-116); ALT/SGPT 21 U/L (7.0-40); AST/SGOT 29 U/L (<34); BILIRUBIN,DIRECT < 0.1 MG/DL (<0.4); BILIRUBIN,TOTAL 0.3 MG/DL (0.3-1.2); BLOOD UREA NITROGEN 24 MG/DL (9-23); CALCIUM LEVEL 8.9 MG/DL (8.5-10.1); CARBON DIOXIDE LEVEL 33 MMOL/L (20-31); CHLORIDE LEVEL 99 MMOL/L (98-107); CK-MB VALUE MASS 1.8 NG/ML (<3.6); GLOMERULAR FILTRATION RATE > 60.0 (>56); GLUCOSE, FASTING 144 MG/DL (60-100); POTASSIUM SERUM 4.9 MMOL/L (3.5-5.1); SODIUM LEVEL 137 MMOL/L (136-145); TOTAL PROTEIN 7.8 G/DL (5.7-8.2)
[2023-06-20 09:40] LABS: INR 1.03; PROTHROMBIN TIME 13.2 SECONDS (12.5-14.5)
[2023-06-20 09:43] LABS: THYROID STIMULATING HORMONE 2.089 uIU/ML (0.55-4.78)
[2023-06-20 09:44] LABS: ETHYL ALCOHOL (ETHANOL) 0.004 % (0.000-0.010)
[2023-06-20 09:52] LABS: PROCALCITONIN <0.04 ng/ml
[2023-06-20 10:05] LABS: CPK CREATINE PHOSPHOKINASE 114 U/L (46-171); MB/CK RELATIVE INDEX 1.57 (< OR =4)
[2023-06-20 10:18] LABS: ABG BASE EXCESS 4.9 (-2.0-2.0); ABG HCO3 31.7 MMOL/L (22.0-26.0); ABG O2 SATURATION 95.3 % (95.0-99.0); ABG PARTIAL PRESSURE CO2 56.4 mmHg (35.0-45.0); ABG STANDARD HCO3 28.8 MMOL/L. (22.0-26.0); ABG TOTAL CO2 33.5 MMOL/L (22.0-29.0); ABG pH (ARTERIAL) 7.368 UNITS (7.350-7.450)
[2023-06-20] MEDS ORDERED: ISOVUE-370 76% 100ML VIAL As Ordered ONE (10:29)
[2023-06-20 10:34] LABS: CK-MB VALUE MASS 1.5 NG/ML (<3.6)
[2023-06-20 10:38] LABS: MB/CK RELATIVE INDEX 1.53 (< OR =4)
[2023-06-20] MEDS ORDERED: dexAMETHasone 20MG/5ML VIAL IV ONE (12:30)
[2023-06-20] MEDS ORDERED: FUROSEMIDE 40MG/4ML VIAL IV ONE (12:30)
[2023-06-20 12:31] LABS: BARBITURATES URINE NEGATIVE (NEGATIVE); BENZODIAZEPINES URINE NEGATIVE (NEGATIVE); CANNABINOIDS URINE NEGATIVE (NEGATIVE); COCAINE METABOLITE URINE NEGATIVE (NEGATIVE); METHADONE URINE NEGATIVE (NEGATIVE); OPIATES URINE NEGATIVE (NEGATIVE); PHENCYCLIDINE URINE NEGATIVE (NEGATIVE)
[2023-06-20 12:34] LABS: AMPHETAMINES LEVEL URINE POSITIVE (NEGATIVE)
[2023-06-20] MEDS ORDERED: PRED20TA PO (14:19)
== END 2023-06-20 14:45 | disposition home or self-care (01) ==
LOC: M ED 07:52
DX: J44.1 Chronic obstructive pulmonary disease with (acute) exacerbation (principal); J96.11 Chronic respiratory failure with hypoxia; E11.9 Type 2 diabetes mellitus without complications; I10 Essential (primary) hypertension; G47.33 Obstructive sleep apnea (adult) (pediatric); F17.200 Nicotine dependence, unspecified, uncomplicated; F19.10 Other psychoactive substance abuse, uncomplicated; Z79.52 Long term (current) use of systemic steroids; Z79.02 Long term (current) use of antithrombotics/antiplatelets; Z79.811 Long term (current) use of aromatase inhibitors; Z79.4 Long term (current) use of insulin; Z79.899 Other long term (current) drug therapy
CPT/HCPCS: 36600; 71045; 71275; 80048; 80076; 80307; 82077; 82550; 82553; 82803; 83605; 83880; 84145; 84443; 85025; 85610; 87040; 87486; 87581; 87633; 87798; 93005; 93041; 94640; 94760; 96374; 99284; J1100; J1940; Q9967

== ENCOUNTER 2023-07-04 11:22 | Inpatient (IN) | payer OTHER ==
[~2023-07-04] VITALS: Ht 177.8 cm; Wt 128.0 kg
[~2023-07-04 11:22] MED LIST changes: +FLUT1BLS8 INH; +LEVOTAB10 PO
[2023-07-04] MEDS ORDERED: dexAMETHasone 20MG/5ML VIAL IV ONE (11:50)
[2023-07-04] MEDS ORDERED: ACETAMINOPHEN TAB 650MG DOSE (2X325MG) PO ONE (11:50)
[2023-07-04 11:54] LABS: ABG BASE EXCESS 1.8 (-2.0-2.0); ABG HCO3 29.9 MMOL/L (22.0-26.0); ABG O2 SATURATION 97.3 % (95.0-99.0); ABG PARTIAL PRESSURE O2 102.5 mmHg (75.0-100.0); ABG STANDARD HCO3 26.1 MMOL/L. (22.0-26.0); ABG TOTAL CO2 31.8 MMOL/L (22.0-29.0)
[2023-07-04] MEDS: IPRATROPIUM 0.5MG/ALBUTEROL 2.5MG INH SOL UD 3ML (DUONEB) NEB SCH ×5 (11:56→19:01)
[2023-07-04 11:57] LABS: ABG PARTIAL PRESSURE CO2 62.2 mmHg (35.0-45.0)
[2023-07-04 12:10] LABS: INR 1.04; PROTHROMBIN TIME 13.3 SECONDS (12.5-14.5)
[2023-07-04 12:30] LABS: CPK CREATINE PHOSPHOKINASE 107 U/L (46-171)
[2023-07-04 12:31] LABS: ALBUMIN 3.6 G/DL (3.2-5.2); ALKALINE PHOSPHATASE 73 U/L (46-116); ALT/SGPT 47 U/L (7.0-40); AST/SGOT 31 U/L (<34); BILIRUBIN,DIRECT 0.2 MG/DL (<0.4); BILIRUBIN,TOTAL 0.4 MG/DL (0.3-1.2); BLOOD UREA NITROGEN 16 MG/DL (9-23); CALCIUM LEVEL 8.6 MG/DL (8.5-10.1); CARBON DIOXIDE LEVEL 33 MMOL/L (20-31); CHLORIDE LEVEL 93 MMOL/L (98-107); CK-MB VALUE MASS < 1.0 NG/ML (<3.6); CREATININE FOR GFR 0.88 MG/DL (0.70-1.30); GLOMERULAR FILTRATION RATE > 60.0 (>56); GLUCOSE, FASTING 231 MG/DL (60-100); MB/CK RELATIVE INDEX 0.93 (< OR =4); POTASSIUM SERUM 4.5 MMOL/L (3.5-5.1); SODIUM LEVEL 130 MMOL/L (136-145); TOTAL PROTEIN 7.4 G/DL (5.7-8.2)
[2023-07-04 12:36] LABS: THYROID STIMULATING HORMONE 0.319 uIU/ML (0.55-4.78)
[2023-07-04] MEDS ORDERED: OSELTAMIVIR PHOSPHATE 75 MG CAP (TAMIFLU) PO ONE (12:50)
[2023-07-04 13:02] LABS: BASO % 0.3 % (0.0-1.0); EOS % 0.2 % (0.0-3.0); HEMATOCRIT 41.6 % (42.0-52.0); HEMOGLOBIN 13.4 g/dl (13.5-17.5); LYMPH # 0.8 10^3/uL (1.5-5.0); LYMPH % 9.3 % (24.0-44.0); MEAN CORPUSCULAR HEMOGLOBIN 30.7 pg (27.0-33.0); MEAN CORPUSCULAR HGB CONC 32.2 g/dl (32.0-36.5); MEAN CORPUSCULAR VOLUME 95.4 fl (80.0-96.0); MONO # 0.7 10^3/uL (0.0-0.8); MONO % 7.8 % (2.0-8.0); NEUTROPHILS # 7.4 10^3/uL (1.5-8.5); PLATELET COUNT, AUTOMATED 182 10^3/uL (150-450); RED BLOOD COUNT 4.36 10^6/uL (4.30-6.10)
[2023-07-04 13:44] LABS: CK-MB VALUE MASS < 1.0 NG/ML (<3.6)
[2023-07-04 13:45] LABS: CPK CREATINE PHOSPHOKINASE 106 U/L (46-171); MB/CK RELATIVE INDEX 0.94 (< OR =4)
[2023-07-04] MEDS ORDERED: MED REC IN PROGRESS XX SCH (15:00)
[2023-07-04] MEDS ORDERED: DEXTROSE 50% 50ML SYRINGE IV PRN (15:05)
[2023-07-04] MEDS ORDERED: MOM 30ML SUSPENSION UDC PO PRN (15:05)
[2023-07-04] MEDS ORDERED: MAALOX 30 ML SUSP *UDC PO PRN (15:05)
[2023-07-04] MEDS ORDERED: GLUCAGON INJ 1MG VIAL SC PRN (15:05)
[2023-07-04] MEDS ORDERED: ACETAMINOPHEN TAB 650MG DOSE (2X325MG) PO PRN (15:05)
[2023-07-04] MEDS ORDERED: IPRATROPIUM 0.5MG/ALBUTEROL 2.5MG INH SOL UD 3ML (DUONEB) NEB PRN (15:05)
[2023-07-04] MEDS ORDERED: GLUCOSE 4GM CHEW TABLET PO PRN (15:05)
[2023-07-04] MEDS ORDERED: FURO20TA2 PO (15:16)
[2023-07-04] MEDS ORDERED: ACET1TAB55 PO (15:16)
[2023-07-04] MEDS ORDERED: MUPI2OI TOP (15:16)
[2023-07-04] MEDS ORDERED: HOME MED LIST COMPLETE! XX SCH (15:25)
[2023-07-04 15:34] LABS: PROCALCITONIN 0.07 ng/ml
[2023-07-04] MEDS ORDERED: NS 1,000 ML IV SCH (15:35)
[2023-07-04] MEDS: INSULIN LISPRO (NovoLOG) PER UNIT SC SCH ×2 (17:30→21:00)
[2023-07-04 18:00] VITALS: BP 128/73; TEMP 97.6; O2SAT 96
[2023-07-04 18:30] LABS: ABG BASE EXCESS 4.1 (-2.0-2.0); ABG HCO3 33.2 MMOL/L (22.0-26.0); ABG O2 SATURATION 94.3 % (95.0-99.0); ABG PARTIAL PRESSURE O2 75.4 mmHg (75.0-100.0); ABG TOTAL CO2 35.4 MMOL/L (22.0-29.0); ABG pH (ARTERIAL) 7.281 UNITS (7.350-7.450)
[2023-07-04 18:32] LABS: ABG PARTIAL PRESSURE CO2 72.1 mmHg (35.0-45.0)
[2023-07-04 19:00] VITALS: BP 128/73; TEMP 101.2
[2023-07-04] MEDS: ADVAIR HFA 230/21MCG INHALER INH SCH (19:01)
[2023-07-04] MEDS ORDERED: methylPREDNISolone 40MG 1ML VIAL IV SCH (20:00)
[2023-07-04] MEDS ORDERED: ACETAMINOPHEN 650MG SUPP PR PRN (20:00)
[2023-07-04] MEDS: DOCUSATE SODIUM 100MG CAPSULE PO SCH (20:33)
[2023-07-04 20:34] LABS: BLOOD UREA NITROGEN 17 MG/DL (9-23); CALCIUM LEVEL 8.5 MG/DL (8.5-10.1); CARBON DIOXIDE LEVEL 34 MMOL/L (20-31); CHLORIDE LEVEL 98 MMOL/L (98-107); CREATININE FOR GFR 0.83 MG/DL (0.70-1.30); GLOMERULAR FILTRATION RATE > 60.0 (>56); GLUCOSE, FASTING 183 MG/DL (60-100); POTASSIUM SERUM 5.3 MMOL/L (3.5-5.1); SODIUM LEVEL 135 MMOL/L (136-145)
[2023-07-04] MEDS: guaiFENesin ER TABLET 600 MG TAB PO SCH (20:34)
[2023-07-04] MEDS: CARVedilol 3.125 MG TAB PO SCH (20:34)
[2023-07-04] MEDS: CETIRIZINE (ZyrTEC) 10 MG TAB PO SCH (20:34)
[2023-07-04] MEDS: OSELTAMIVIR PHOSPHATE 75 MG CAP (TAMIFLU) PO SCH (20:34)
[2023-07-04] MEDS: BUPRENORPHINE/NALOXONE 8-2MG SUBLINGUAL TABLET(SUBOXONE) SL SCH (21:00)
[2023-07-04] MEDS: methylPREDNISolone 125MG 2ML VIAL IV SCH (21:14)
[2023-07-04] MEDS: ENOXAPARIN 40MG/0.4ML SYRINGE (J1650 PER 10MG) SC SCH (21:15)
[2023-07-04 21:17] VITALS: BP 134/71; TEMP 98.1; O2SAT 100
[2023-07-04] MEDS: MUPIROCIN 2% OINT 22 GM TUBE TOP SCH (21:20)
[2023-07-04 22:00] VITALS: BP 136/71; O2SAT 100
[2023-07-04 23:00] VITALS: BP 123/61; O2SAT 97
[2023-07-05] VITALS (11 sets, daily range): BP systolic 115–157; BP diastolic 58–81; TEMP 97.5–98; O2SAT 90–100
[2023-07-05] MEDS: IPRATROPIUM 0.5MG/ALBUTEROL 2.5MG INH SOL UD 3ML (DUONEB) NEB SCH ×4 (01:46→19:58)
[2023-07-05] MEDS: methylPREDNISolone 125MG 2ML VIAL IV SCH ×2 (02:31→09:01)
[2023-07-05 05:09] LABS: BASO % 0.1 % (0.0-1.0); HEMOGLOBIN 13.1 g/dl (13.5-17.5); LYMPH # 0.7 10^3/uL (1.5-5.0); LYMPH % 9.2 % (24.0-44.0); MEAN CORPUSCULAR HEMOGLOBIN 29.4 pg (27.0-33.0); MEAN CORPUSCULAR HGB CONC 31.2 g/dl (32.0-36.5); MEAN CORPUSCULAR VOLUME 94.4 fl (80.0-96.0); MONO # 0.2 10^3/uL (0.0-0.8); MONO % 2.4 % (2.0-8.0); NEUTROPHILS # 6.2 10^3/uL (1.5-8.5); NEUTROPHILS % 87.7 % (36.0-66.0); PLATELET COUNT, AUTOMATED 183 10^3/uL (150-450); RED BLOOD COUNT 4.45 10^6/uL (4.30-6.10)
[2023-07-05 05:48] LABS: ALBUMIN 3.1 G/DL (3.2-5.2); ALKALINE PHOSPHATASE 64 U/L (46-116); ALT/SGPT 45 U/L (7.0-40); AST/SGOT 29 U/L (<34); BILIRUBIN,TOTAL 0.3 MG/DL (0.3-1.2); BLOOD UREA NITROGEN 20 MG/DL (9-23); CALCIUM LEVEL 8.5 MG/DL (8.5-10.1); CARBON DIOXIDE LEVEL 32 MMOL/L (20-31); CHLORIDE LEVEL 97 MMOL/L (98-107); CREATININE FOR GFR 0.72 MG/DL (0.70-1.30); GLOMERULAR FILTRATION RATE > 60.0 (>56); GLUCOSE, FASTING 209 MG/DL (60-100); MAGNESIUM LEVEL 1.9 MG/DL (1.8-2.4); POTASSIUM SERUM 4.8 MMOL/L (3.5-5.1); SODIUM LEVEL 134 MMOL/L (136-145)
[2023-07-05] MEDS: ADVAIR HFA 230/21MCG INHALER INH SCH ×2 (07:14→19:55)
[2023-07-05] MEDS: INSULIN LISPRO (NovoLOG) PER UNIT SC SCH ×4 (09:00→21:09)
[2023-07-05] MEDS: DOCUSATE SODIUM 100MG CAPSULE PO SCH ×2 (09:03→21:10)
[2023-07-05] MEDS: ATORVASTATIN 20 MG TAB PO SCH (09:04)
[2023-07-05] MEDS: CARVedilol 3.125 MG TAB PO SCH ×2 (09:04→21:11)
[2023-07-05] MEDS: guaiFENesin ER TABLET 600 MG TAB PO SCH ×2 (09:05→21:11)
[2023-07-05] MEDS: MUPIROCIN 2% OINT 22 GM TUBE TOP SCH ×2 (09:07→21:12)
[2023-07-05] MEDS: BUPRENORPHINE/NALOXONE 8-2MG SUBLINGUAL TABLET(SUBOXONE) SL SCH ×3 (09:07→21:11)
[2023-07-05] MEDS: OSELTAMIVIR PHOSPHATE 75 MG CAP (TAMIFLU) PO SCH ×2 (09:07→21:10)
[2023-07-05] MEDS: ENOXAPARIN 40MG/0.4ML SYRINGE (J1650 PER 10MG) SC SCH ×2 (09:07→21:10)
[2023-07-05] MEDS: methylPREDNISolone 40MG 1ML VIAL IV SCH ×2 (15:13→21:09)
[2023-07-05] MEDS: CETIRIZINE (ZyrTEC) 10 MG TAB PO SCH (21:11)
[2023-07-06] VITALS: BP 120/71; TEMP 97.8; O2SAT 96
[2023-07-06] MEDS: IPRATROPIUM 0.5MG/ALBUTEROL 2.5MG INH SOL UD 3ML (DUONEB) NEB SCH ×4 (02:18→20:03)
[2023-07-06 04:03] VITALS: BP 120/65; TEMP 97.5; O2SAT 99
[2023-07-06 05:11] LABS: BASO % 0.1 % (0.0-1.0); HEMATOCRIT 41.5 % (42.0-52.0); HEMOGLOBIN 13.4 g/dl (13.5-17.5); LYMPH # 0.8 10^3/uL (1.5-5.0); MEAN CORPUSCULAR HEMOGLOBIN 30.8 pg (27.0-33.0); MEAN CORPUSCULAR HGB CONC 32.3 g/dl (32.0-36.5); MEAN CORPUSCULAR VOLUME 95.4 fl (80.0-96.0); MONO # 0.8 10^3/uL (0.0-0.8); MONO % 4.2 % (2.0-8.0); NEUTROPHILS # 17.8 10^3/uL (1.5-8.5); NEUTROPHILS % 91.2 % (36.0-66.0); PLATELET COUNT, AUTOMATED 192 10^3/uL (150-450); RED BLOOD COUNT 4.35 10^6/uL (4.30-6.10); WHITE BLOOD COUNT 19.5 10^3/uL (4.0-10.0)
[2023-07-06 05:39] LABS: ALKALINE PHOSPHATASE 59 U/L (46-116); ALT/SGPT 42 U/L (7.0-40); AST/SGOT 25 U/L (<34); BILIRUBIN,TOTAL 0.2 MG/DL (0.3-1.2); BLOOD UREA NITROGEN 28 MG/DL (9-23); CALCIUM LEVEL 9.1 MG/DL (8.5-10.1); CARBON DIOXIDE LEVEL 34 MMOL/L (20-31); CHLORIDE LEVEL 101 MMOL/L (98-107); CREATININE FOR GFR 0.72 MG/DL (0.70-1.30); GLOMERULAR FILTRATION RATE > 60.0 (>56); GLUCOSE, FASTING 163 MG/DL (60-100); POTASSIUM SERUM 5.2 MMOL/L (3.5-5.1); SODIUM LEVEL 137 MMOL/L (136-145); TOTAL PROTEIN 6.8 G/DL (5.7-8.2)
[2023-07-06] MEDS: methylPREDNISolone 40MG 1ML VIAL IV SCH (05:50)
[2023-07-06 08:00] VITALS: BP 128/61; TEMP 97.8; O2SAT 94
[2023-07-06] MEDS: ADVAIR HFA 230/21MCG INHALER INH SCH ×2 (08:12→20:03)
[2023-07-06] MEDS: DOCUSATE SODIUM 100MG CAPSULE PO SCH ×2 (09:00→20:47)
[2023-07-06] MEDS ORDERED: PATIROMER SORBITEX CALCIUM 8.4 GM POWDER PACKET (VELTASSA) PO ONE ×2 (09:00→21:00)
[2023-07-06] MEDS: FUROSEMIDE 20 MG TAB PO SCH (09:00)
[2023-07-06] MEDS: ATORVASTATIN 20 MG TAB PO SCH (09:52)
[2023-07-06] MEDS: guaiFENesin ER TABLET 600 MG TAB PO SCH ×2 (09:52→20:43)
[2023-07-06] MEDS: OSELTAMIVIR PHOSPHATE 75 MG CAP (TAMIFLU) PO SCH ×2 (09:53→20:42)
[2023-07-06] MEDS: BUPRENORPHINE/NALOXONE 8-2MG SUBLINGUAL TABLET(SUBOXONE) SL SCH ×3 (09:53→20:44)
[2023-07-06] MEDS: CARVedilol 3.125 MG TAB PO SCH ×2 (09:53→20:43)
[2023-07-06] MEDS: MUPIROCIN 2% OINT 22 GM TUBE TOP SCH ×2 (09:58→21:00)
[2023-07-06] MEDS: ENOXAPARIN 40MG/0.4ML SYRINGE (J1650 PER 10MG) SC SCH ×2 (09:58→20:42)
[2023-07-06] MEDS: INSULIN LISPRO (NovoLOG) PER UNIT SC SCH ×4 (09:59→20:57)
[2023-07-06 12:00] VITALS: BP 121/58; TEMP 97.1; O2SAT 94
[2023-07-06] MEDS ORDERED: methylPREDNISolone 40MG 1ML VIAL IV ONE (14:00)
[2023-07-06 16:00] VITALS: BP 150/73; TEMP 97; O2SAT 96
[2023-07-06 20:00] VITALS: BP 157/76; TEMP 97.4; O2SAT 96
[2023-07-06] MEDS: CETIRIZINE (ZyrTEC) 10 MG TAB PO SCH (20:43)
[2023-07-07] MEDS: IPRATROPIUM 0.5MG/ALBUTEROL 2.5MG INH SOL UD 3ML (DUONEB) NEB SCH ×2 (02:07→07:59)
[2023-07-07 02:15] VITALS: BP 165/79; TEMP 96.7; O2SAT 98
[2023-07-07 05:25] LABS: BASO % 0.1 % (0.0-1.0); HEMATOCRIT 43.2 % (42.0-52.0); HEMOGLOBIN 13.6 g/dl (13.5-17.5); LYMPH # 0.9 10^3/uL (1.5-5.0); LYMPH % 5.9 % (24.0-44.0); MEAN CORPUSCULAR HGB CONC 31.5 g/dl (32.0-36.5); MEAN CORPUSCULAR VOLUME 95.4 fl (80.0-96.0); MONO # 0.9 10^3/uL (0.0-0.8); MONO % 5.4 % (2.0-8.0); NEUTROPHILS # 13.8 10^3/uL (1.5-8.5); NEUTROPHILS % 88.1 % (36.0-66.0); PLATELET COUNT, AUTOMATED 216 10^3/uL (150-450); RED BLOOD COUNT 4.53 10^6/uL (4.30-6.10); WHITE BLOOD COUNT 15.7 10^3/uL (4.0-10.0)
[2023-07-07 05:26] VITALS: BP 155/86; TEMP 96.6; O2SAT 100
[2023-07-07 05:55] LABS: ALKALINE PHOSPHATASE 60 U/L (46-116); ALT/SGPT 59 U/L (7.0-40); AST/SGOT 31 U/L (<34); BILIRUBIN,TOTAL 0.3 MG/DL (0.3-1.2); BLOOD UREA NITROGEN 21 MG/DL (9-23); CARBON DIOXIDE LEVEL 36 MMOL/L (20-31); CHLORIDE LEVEL 100 MMOL/L (98-107); CREATININE FOR GFR 0.73 MG/DL (0.70-1.30); GLOMERULAR FILTRATION RATE > 60.0 (>56); GLUCOSE, FASTING 125 MG/DL (60-100); MAGNESIUM LEVEL 1.8 MG/DL (1.8-2.4); SODIUM LEVEL 139 MMOL/L (136-145); TOTAL PROTEIN 6.7 G/DL (5.7-8.2)
[2023-07-07 07:29] VITALS: BP 129/80; TEMP 98.3; O2SAT 94
[2023-07-07] MEDS: ADVAIR HFA 230/21MCG INHALER INH SCH (08:00)
[2023-07-07] MEDS: INSULIN LISPRO (NovoLOG) PER UNIT SC SCH (08:59)
[2023-07-07] MEDS ORDERED: predniSONE 10MG TAB PO SCH (09:00)
[2023-07-07] MEDS: FUROSEMIDE 20 MG TAB PO SCH (09:00)
[2023-07-07] MEDS: ENOXAPARIN 40MG/0.4ML SYRINGE (J1650 PER 10MG) SC SCH (09:00)
[2023-07-07] MEDS: ATORVASTATIN 20 MG TAB PO SCH (09:00)
[2023-07-07] MEDS: DOCUSATE SODIUM 100MG CAPSULE PO SCH (09:01)
[2023-07-07 09:02] VITALS: BP 129/80
[2023-07-07] MEDS: CARVedilol 3.125 MG TAB PO SCH (09:02)
[2023-07-07] MEDS: guaiFENesin ER TABLET 600 MG TAB PO SCH (09:02)
[2023-07-07] MEDS: BUPRENORPHINE/NALOXONE 8-2MG SUBLINGUAL TABLET(SUBOXONE) SL SCH (09:13)
[2023-07-07] MEDS: OSELTAMIVIR PHOSPHATE 75 MG CAP (TAMIFLU) PO SCH (09:13)
[2023-07-07] MEDS ORDERED: IPRA0.00 INH (10:49)
[2023-07-07] MEDS ORDERED: PRED10TA2 PO (10:49)
[2023-07-07] MEDS ORDERED: OSEL75CA2 PO (10:49)
[2023-07-07] MEDS ORDERED: AMLO1TAB25 PO ×2 (10:49→11:04)
[2023-07-07] MEDS ORDERED: PRED20TA PO (10:49)
[2023-07-07] MEDS: MUPIROCIN 2% OINT 22 GM TUBE TOP SCH (11:18)
== END 2023-07-07 12:39 | disposition home health service (06) | DRG 140 ==
LOC: M ED 11:22 → M ED INP 11:23 → M ICU 17:51 → OBSVTOIN 07-05 10:52 → M PCU 07-06 18:33
PROVIDERS: ADMIT Internal Medicine; ATTEND Internal Medicine
DX: J44.1 Chronic obstructive pulmonary disease with (acute) exacerbation (principal); J96.11 Chronic respiratory failure with hypoxia; I11.0 Hypertensive heart disease with heart failure; E87.1 Hypo-osmolality and hyponatremia; I50.32 Chronic diastolic (congestive) heart failure; J96.12 Chronic respiratory failure with hypercapnia; Z99.81 Dependence on supplemental oxygen; E87.5 Hyperkalemia; J10.1 Influenza due to other identified influenza virus with other respiratory manifestations; E11.9 Type 2 diabetes mellitus without complications; E78.5 Hyperlipidemia, unspecified; Z79.84 Long term (current) use of oral hypoglycemic drugs; Z79.899 Other long term (current) drug therapy; Z20.822 Contact with and (suspected) exposure to COVID-19; Z87.891 Personal history of nicotine dependence

== ENCOUNTER → 2023-08-03 | Outpatient (REF) ==
[~2023-08-03] MED LIST changes: +FURO20TA2 PO; +IPRA0.00 INH; +MUPI2OI TOP; +OSEL75CA2 PO
== END ==
LOC: M PLAIMG 12:06
PROVIDERS: ATTEND Internal Medicine
DX: M54.59 Other low back pain (principal); M19.90 Unspecified osteoarthritis, unspecified site

== ENCOUNTER 2023-11-21 18:31 | Emergency (ER) | payer OTHER ==
[~2023-11-21] VITALS: Ht 177.8 cm; Wt 128.7 kg
[2023-11-21 20:25] LABS: BASO % 0.4 % (0.0-1.0); EOS # 0.3 10^3/uL (0.0-0.5); EOS % 3.8 % (0.0-3.0); HEMATOCRIT 47.2 % (42.0-52.0); HEMOGLOBIN 15.2 g/dl (13.5-17.5); LYMPH % 22.7 % (24.0-44.0); MEAN CORPUSCULAR HEMOGLOBIN 29.5 pg (27.0-33.0); MEAN CORPUSCULAR HGB CONC 32.2 g/dl (32.0-36.5); MEAN CORPUSCULAR VOLUME 91.5 fl (80.0-96.0); MONO # 0.7 10^3/uL (0.0-0.8); MONO % 7.7 % (2.0-8.0); NEUTROPHILS # 5.8 10^3/uL (1.5-8.5); NEUTROPHILS % 65.2 % (36.0-66.0); PLATELET COUNT, AUTOMATED 319 10^3/uL (150-450); RED BLOOD COUNT 5.16 10^6/uL (4.30-6.10)
[2023-11-21 20:41] LABS: ERYTHROCYTE SEDIMENTATION RATE 89 mm/hr (0-20)
[2023-11-21 22:17] VITALS: BP 150/73; TEMP 97.7; O2SAT 98
[2023-11-21] MEDS ORDERED: CEPH500C PO (22:28)
[2023-11-21] MEDS: CEPHALEXIN 500 MG CAP PO ONE (22:34)
== END 2023-11-21 22:40 | disposition home or self-care (01) ==
LOC: M ED 18:31
DX: L03.116 Cellulitis of left lower limb (principal); I11.0 Hypertensive heart disease with heart failure; E11.9 Type 2 diabetes mellitus without complications; J44.9 Chronic obstructive pulmonary disease, unspecified; F17.200 Nicotine dependence, unspecified, uncomplicated; Z79.84 Long term (current) use of oral hypoglycemic drugs; Z79.899 Other long term (current) drug therapy

== ENCOUNTER → 2024-04-18 | Outpatient (REF) | payer OTHER ==
[~2024-04-18] MED LIST changes: +CEPH500C PO
== END ==
LOC: M SFHCPLAZ 16:17
PROVIDERS: ATTEND Family Medicine
DX: Z00.00 Encounter for general adult medical examination without abnormal findings (principal); E11.9 Type 2 diabetes mellitus without complications; Z13.29 Encounter for screening for other suspected endocrine disorder; Z13.220 Encounter for screening for lipoid disorders

== ENCOUNTER → 2024-07-26 | Outpatient (CLI) | payer OTHER | LOC: M RAD 16:22 | PROVIDERS: ATTEND Internal Medicine Pulmonary Disease | DX: Z12.2 Encounter for screening for malignant neoplasm of respiratory organs (principal); J44.9 Chronic obstructive pulmonary disease, unspecified ==

== ENCOUNTER → 2024-09-27 | Outpatient (CLI) | payer OTHER ==
[2024-09-27 11:44] LABS: HEMOGLOBIN A1c 6.5 % (4.0-6.0)
[2024-09-27 12:11] LABS: ALBUMIN 3.7 G/DL (3.2-5.2); ALKALINE PHOSPHATASE 69 U/L (40-129); ALT/SGPT 65 U/L (7.0-40); AST/SGOT 34 U/L (<34); BILIRUBIN,TOTAL 0.4 MG/DL (0.3-1.2); BLOOD UREA NITROGEN 19 MG/DL (9-23); CALCIUM LEVEL 9.9 MG/DL (8.5-10.1); CARBON DIOXIDE LEVEL 34 MMOL/L (20-31); CHLORIDE LEVEL 101 MMOL/L (98-107); CHOLESTEROL LEVEL 147 MG/DL (<200); CHOLESTEROL RISK RATIO 2.82 (<5); CREATININE FOR GFR 0.89 MG/DL (0.70-1.30); GLOMERULAR FILTRATION RATE > 60.0 (>56); GLUCOSE, FASTING 124 MG/DL (60-100); POTASSIUM SERUM 4.8 MMOL/L (3.5-5.1); SODIUM LEVEL 140 MMOL/L (136-145); THYROID STIMULATING HORMONE 2.524 uIU/ML (0.55-4.78); TOTAL PROTEIN 7.6 G/DL (5.7-8.2); TRIGLYCERIDES LEVEL 125 MG/DL (<150)
[2024-09-27 12:12] LABS: FREE T4 1.35 NG/DL (0.89-1.76)
[2024-09-27 12:13] LABS: HEPATITIS B SURFACE ANTIBODY NEGATIVE (POSITIVE); TOTAL 25(OH) VITAMIN D 32.1 NG/ML (20.0-100.0)
[2024-09-27 12:24] LABS: HEPATITIS B SURFACE ANTIGEN NEGATIVE (NEGATIVE)
[2024-09-27 12:38] LABS: HIV 1&2 SCREEN NEGATIVE (NEGATIVE)
[2024-09-27 12:45] LABS: HEPATITIS C VIRUS ABY INDEX 0.04 INDEX (<0.8)
== END ==
LOC: M PLALAB 08:43
PROVIDERS: ATTEND Student in an Organized Health Care Education/Training Program
DX: Z00.00 Encounter for general adult medical examination without abnormal findings (principal); Z13.220 Encounter for screening for lipoid disorders; E11.9 Type 2 diabetes mellitus without complications

== ENCOUNTER → 2024-11-07 | Outpatient (CLI) | payer OTHER | LOC: M RAD 13:16 | PROVIDERS: ATTEND Student in an Organized Health Care Education/Training Program | DX: I73.9 Peripheral vascular disease, unspecified (principal) ==

== ENCOUNTER 2025-01-14 17:08 | Inpatient (IN) | payer OTHER, MEDICAID ==
[~2025-01-14] VITALS: Ht 182.9 cm; Wt 133.5 kg
[2025-01-14] VITALS (17 sets, daily range): BP systolic 100–163; BP diastolic 53–86; TEMP 97.4; O2SAT 75–96
[~2025-01-14 17:08] MED LIST changes: +cefTRIAXone SOD 1 GM in DEXTROSE 5% (D5W) ADV/MINI-BAG 50 ML IV SCH
[2025-01-14] MEDS: IPRATROPIUM 0.5 MG/ALBUTEROL 2.5 MG INH SOL UD 3 ML NEB PRN (17:21)
[2025-01-14 17:26] LABS: ABG BASE EXCESS 2.0 (-2.0-2.0); ABG HCO3 35.3 MMOL/L (22.0-26.0); ABG O2 SATURATION 98.2 % (95.0-99.0); ABG PARTIAL PRESSURE O2 131.5 mmHg (75.0-100.0); ABG STANDARD HCO3 26.3 MMOL/L. (22.0-26.0); ABG TOTAL CO2 38.4 MMOL/L (22.0-29.0)
[2025-01-14 17:29] LABS: ABG pH (ARTERIAL) 7.157 UNITS (7.350-7.450)
[2025-01-14 17:30] LABS: ABG PARTIAL PRESSURE CO2 101.9 mmHg (35.0-45.0)
[2025-01-14 17:43] LABS: BASO # 0.1 10^3/uL (0.0-0.2); BASO % 0.3 % (0.0-1.0); EOS # 0.0 10^3/uL (0.0-0.5); EOS % 0.0 % (0.0-3.0); LYMPH # 1.3 10^3/uL (1.5-5.0); LYMPH % 6.7 % (24.0-44.0); MONO # 1.3 10^3/uL (0.0-0.8); MONO % 6.6 % (2.0-8.0); NEUTROPHILS # 17.2 10^3/uL (1.5-8.5); NEUTROPHILS % 85.7 % (36.0-66.0); PLATELET COUNT, AUTOMATED 228 10^3/uL (150-450)
[2025-01-14] MEDS: ACETAMINOPHEN *IV* 1,000 MG in IV 1 EA IV ONE (17:47)
[2025-01-14] MEDS: CEFEPIME HCL 2 GM in DEXTROSE 5% (D5W) ADV/MINI-BAG 50 ML IV ONE (17:47)
[2025-01-14 17:53] LABS: ALT/SGPT 198.0 U/L (7.0-40); AST/SGOT 76.0 U/L (<34); CALCIUM LEVEL 8.9 MG/DL (8.5-10.1); CARBON DIOXIDE LEVEL 36.0 MMOL/L (20-31); CHLORIDE LEVEL 96.0 MMOL/L (98-107); CREATININE FOR GFR 1.05 MG/DL (0.70-1.30); GLOMERULAR FILTRATION RATE 82.8 (>56); POTASSIUM SERUM 5.3 MMOL/L (3.5-5.1); SODIUM LEVEL 140.0 MMOL/L (136-145)
[2025-01-14 17:59] LABS: KETONE, URINE AUTO RFX NEGATIVE (NEGATIVE); LEUKOCYTE ESTERASE UR AUTO RFX NEGATIVE (NEGATIVE); MUCUS, URINE RFX SMALL (NEGATIVE); NITRITE, URINE AUTO RFX NEGATIVE (NEGATIVE); RBC, URINE AUTO RFX 1 /HPF (0-3); SQUAM EPITHELIAL CELL UR AURFX 0 /HPF (0-6); WBC, URINE AUTO RFX 2 /HPF (0-3)
[2025-01-14 18:11] LABS: BARBITURATES URINE NEGATIVE (NEGATIVE); BENZODIAZEPINES URINE NEGATIVE (NEGATIVE); METHADONE URINE NEGATIVE (NEGATIVE); OPIATES URINE NEGATIVE (NEGATIVE)
[2025-01-14 18:12] LABS: PHENCYCLIDINE URINE NEGATIVE (NEGATIVE)
[2025-01-14 18:13] LABS: CANNABINOIDS URINE NEGATIVE (NEGATIVE)
[2025-01-14 18:19] LABS: AMPHETAMINES LEVEL URINE POSITIVE (NEGATIVE); COCAINE METABOLITE URINE POSITIVE (NEGATIVE)
[2025-01-14 18:25] LABS: ABG PARTIAL PRESSURE O2 111.6 mmHg (75.0-100.0)
[2025-01-14 18:26] LABS: ABG BASE EXCESS -0.8 (-2.0-2.0); ABG HCO3 31.7 MMOL/L (22.0-26.0); ABG O2 SATURATION 97.6 % (95.0-99.0); ABG STANDARD HCO3 23.8 MMOL/L. (22.0-26.0); ABG TOTAL CO2 34.5 MMOL/L (22.0-29.0)
[2025-01-14 18:28] LABS: ABG PARTIAL PRESSURE CO2 92.6 mmHg (35.0-45.0); ABG pH (ARTERIAL) 7.152 UNITS (7.350-7.450)
[2025-01-14] MEDS ORDERED: GLUCOSE 4 GM CHEW PO PRN (19:05)
[2025-01-14] MEDS ORDERED: DEXTROSE 50% 50 ML SYRINGE IV PRN (19:05)
[2025-01-14] MEDS ORDERED: GLUCAGON INJ 1 MG VIAL SC PRN (19:05)
[2025-01-14] MEDS ORDERED: ISOVUE-370 76% 100 ML VIAL As Ordered ONE (19:24)
[2025-01-14 19:48] LABS: INR 1.01
[2025-01-14] MEDS: FUROSEMIDE 100 MG/10 ML VIAL IV ONE (19:58)
[2025-01-14] MEDS: AZITHROMYCIN INJ 500 MG, VIAL MATE ADAPTER 1 EACH in NS 250 ML IV SCH (19:58)
[2025-01-14] MEDS: IPRATROPIUM 0.5 MG/ALBUTEROL 2.5 MG INH SOL UD 3 ML NEB SCH (19:59)
[2025-01-14] MEDS ORDERED: IPRATROPIUM 0.5 MG/2.5 ML (0.02%) SOLN NEB NEB SCH (20:00)
[2025-01-14 20:31] LABS: ABG BASE EXCESS 3.7 (-2.0-2.0); ABG HCO3 39.0 MMOL/L (22.0-26.0); ABG O2 SATURATION 98.4 % (95.0-99.0); ABG PARTIAL PRESSURE O2 137.1 mmHg (75.0-100.0); ABG STANDARD HCO3 27.8 MMOL/L. (22.0-26.0); ABG TOTAL CO2 42.8 MMOL/L (22.0-29.0)
[2025-01-14 20:39] LABS: ABG PARTIAL PRESSURE CO2 124.0 mmHg (35.0-45.0); ABG pH (ARTERIAL) 7.115 UNITS (7.350-7.450)
[2025-01-14] MEDS ORDERED: PROPOFOL 1,000 MG/100 ML VIAL As Ordered ONE (21:03)
[2025-01-14] MEDS ORDERED: MIDAZOLAM 5 MG/ML 1 ML VIAL IV PRN (21:05)
[2025-01-14] MEDS: ETOMIDATE 20 MG/10 ML VIAL IV STA (21:20)
[2025-01-14] MEDS: ROCURONIUM BROMIDE 50MG/5ML VIAL IV STA (21:21)
[2025-01-14] MEDS: MIDAZOLAM 100MG/100ML-0.9%NACL 100 MG in IV 1 EA IV SCH (22:43)
[2025-01-14 22:50] LABS: ABG BASE EXCESS 2.0 (-2.0-2.0); ABG HCO3 35.5 MMOL/L (22.0-26.0); ABG O2 SATURATION 90.6 % (95.0-99.0); ABG PARTIAL PRESSURE O2 64.2 mmHg (75.0-100.0); ABG STANDARD HCO3 26.0 MMOL/L. (22.0-26.0); ABG TOTAL CO2 38.8 MMOL/L (22.0-29.0)
[2025-01-14 22:51] LABS: ABG PARTIAL PRESSURE CO2 104.4 mmHg (35.0-45.0); ABG pH (ARTERIAL) 7.150 UNITS (7.350-7.450)
[2025-01-14] MEDS ORDERED: IPRATROPIUM 0.5 MG/ALBUTEROL 2.5 MG INH SOL UD 3 ML NEB PRN (23:20)
[2025-01-14] MEDS: cefTRIAXone SOD 1 GM in DEXTROSE 5% (D5W) ADV/MINI-BAG 50 ML IV SCH (23:32)
[2025-01-15] VITALS (79 sets, daily range): BP systolic 92–161; BP diastolic 50–71; TEMP 97.4–100.7; O2SAT 84–96
[2025-01-15] MEDS ORDERED: ALBUTEROL SULFATE 2.5 MG/0.5 ML INH CONCENTRATE NEB SOLN INH PRN (00:15)
[2025-01-15] MEDS: INSULIN LISPRO (NovoLOG) PER UNIT SC SCH (00:50)
[2025-01-15 02:48] LABS: ABG BASE EXCESS -0.8 (-2.0-2.0); ABG HCO3 30.8 MMOL/L (22.0-26.0); ABG O2 SATURATION 91.4 % (95.0-99.0); ABG PARTIAL PRESSURE O2 63.4 mmHg (75.0-100.0); ABG STANDARD HCO3 23.6 MMOL/L. (22.0-26.0); ABG TOTAL CO2 33.5 MMOL/L (22.0-29.0)
[2025-01-15 02:49] LABS: ABG PARTIAL PRESSURE CO2 86.4 mmHg (35.0-45.0); ABG pH (ARTERIAL) 7.170 UNITS (7.350-7.450)
[2025-01-15] MEDS ORDERED: IRBE150T27 PO (02:54)
[2025-01-15] MEDS ORDERED: CARV6.25 PO (02:54)
[2025-01-15] MEDS ORDERED: ALBU2.5V10 INH (02:54)
[2025-01-15] MEDS ORDERED: GABA-1171 PO (02:54)
[2025-01-15] MEDS ORDERED: TREL1AER PO (02:54)
[2025-01-15] MEDS ORDERED: AMLO1TAB24 PO (02:54)
[2025-01-15] MEDS ORDERED: HOME MED LIST COMPLETE! XX SCH (03:00)
[2025-01-15 05:17] LABS: BASO # 0.0 10^3/uL (0.0-0.2); BASO % 0.2 % (0.0-1.0); EOS # 0.3 10^3/uL (0.0-0.5); EOS % 1.7 % (0.0-3.0); LYMPH # 0.9 10^3/uL (1.5-5.0); LYMPH % 5.0 % (24.0-44.0); MONO # 1.1 10^3/uL (0.0-0.8); MONO % 6.4 % (2.0-8.0); NEUTROPHILS # 15.1 10^3/uL (1.5-8.5); NEUTROPHILS % 86.3 % (36.0-66.0); PLATELET COUNT, AUTOMATED 216 10^3/uL (150-450)
[2025-01-15 05:26] LABS: ABG BASE EXCESS 2.8 (-2.0-2.0); ABG HCO3 33.1 MMOL/L (22.0-26.0); ABG O2 SATURATION 91.8 % (95.0-99.0); ABG PARTIAL PRESSURE O2 63.3 mmHg (75.0-100.0); ABG STANDARD HCO3 26.8 MMOL/L. (22.0-26.0); ABG TOTAL CO2 35.5 MMOL/L (22.0-29.0)
[2025-01-15 05:27] LABS: ABG PARTIAL PRESSURE CO2 78.2 mmHg (35.0-45.0); ABG pH (ARTERIAL) 7.245 UNITS (7.350-7.450)
[2025-01-15 05:49] LABS: ALT/SGPT 169.0 U/L (7.0-40); AST/SGOT 80.0 U/L (<34); CALCIUM LEVEL 8.2 MG/DL (8.5-10.1); CARBON DIOXIDE LEVEL 33.0 MMOL/L (20-31); CHLORIDE LEVEL 97.0 MMOL/L (98-107); CREATININE FOR GFR 1.9 MG/DL (0.70-1.30); GLOMERULAR FILTRATION RATE 40.6 (>56); MAGNESIUM LEVEL 1.8 MG/DL (1.8-2.4); PHOSPHORUS LEVEL 2.9 MG/DL (2.5-4.9); POTASSIUM SERUM 5.2 MMOL/L (3.5-5.1); SODIUM LEVEL 140.0 MMOL/L (136-145)
[2025-01-15 08:02] LABS: FREE T4 1.11 NG/DL (0.89-1.76)
[2025-01-15 08:04] LABS: CPK CREATINE PHOSPHOKINASE 87.0 U/L (46-171)
[2025-01-15] MEDS: ENOXAPARIN 40 MG/0.4 ML SYRINGE (J1650 PER 10MG) SC SCH (09:48)
[2025-01-15] MEDS: LR 1,000 ML IV SCH (09:48)
[2025-01-15] MEDS: PANTOPRAZOLE 40MG VIAL IV SCH (09:48)
[2025-01-15] MEDS: THIAMINE 200MG 2ML VIAL IV SCH (09:49)
[2025-01-15] MEDS: dexmedeTOMidine 200 MCG in IV 1 EA IV SCH (12:50)
[2025-01-15] MEDS: DOCUSATE SOD LIQ 100 MG/10 ML UDC GT SCH (14:14)
[2025-01-15] MEDS ORDERED: PILL CUTTER 1 EACH XX ONE (14:57)
[2025-01-15] MEDS: BUPRENORPHINE/NALOXONE 8-2MG SUBLINGUAL TABLET(SUBOXONE) SL SCH (15:02)
[2025-01-15] MEDS: LR 1,000 ML IV ONE (18:13)
[2025-01-15] MEDS: SENNA 8.6 MG TAB GT SCH (20:18)
[2025-01-16] VITALS (28 sets, daily range): BP systolic 100–192; BP diastolic 56–87; TEMP 98.3–99.7; O2SAT 89–100
[2025-01-16 05:09] LABS: BASO # 0.0 10^3/uL (0.0-0.2); BASO % 0.1 % (0.0-1.0); EOS # 0.0 10^3/uL (0.0-0.5); EOS % 0.1 % (0.0-3.0); LYMPH # 1.7 10^3/uL (1.5-5.0); LYMPH % 12.0 % (24.0-44.0); MONO # 1.3 10^3/uL (0.0-0.8); MONO % 9.1 % (2.0-8.0); NEUTROPHILS # 11.2 10^3/uL (1.5-8.5); NEUTROPHILS % 78.4 % (36.0-66.0); PLATELET COUNT, AUTOMATED 185 10^3/uL (150-450)
[2025-01-16 05:45] LABS: ABG BASE EXCESS 6.6 (-2.0-2.0); ABG HCO3 32.8 MMOL/L (22.0-26.0); ABG O2 SATURATION 93.6 % (95.0-99.0); ABG PARTIAL PRESSURE CO2 53.0 mmHg (35.0-45.0); ABG PARTIAL PRESSURE O2 65.2 mmHg (75.0-100.0); ABG STANDARD HCO3 30.3 MMOL/L. (22.0-26.0); ABG TOTAL CO2 34.5 MMOL/L (22.0-29.0); ABG pH (ARTERIAL) 7.410 UNITS (7.350-7.450)
[2025-01-16 06:39] LABS: ALT/SGPT 129.0 U/L (7.0-40); AST/SGOT 165.0 U/L (<34); CALCIUM LEVEL 8.1 MG/DL (8.5-10.1); CARBON DIOXIDE LEVEL 33.0 MMOL/L (20-31); CHLORIDE LEVEL 96.0 MMOL/L (98-107); CREATININE FOR GFR 1.44 MG/DL (0.70-1.30); GLOMERULAR FILTRATION RATE 56.7 (>56); MAGNESIUM LEVEL 2.0 MG/DL (1.8-2.4); POTASSIUM SERUM 5.1 MMOL/L (3.5-5.1); SODIUM LEVEL 138.0 MMOL/L (136-145)
[2025-01-16 07:52] LABS: PHOSPHORUS LEVEL 3.0 MG/DL (2.5-4.9)
[2025-01-16] MEDS ORDERED: PILL CUTTER 1 EACH XX PRN (18:05)
[2025-01-16] MEDS: BUPRENORPHINE/NALOXONE 8-2MG SUBLINGUAL TABLET(SUBOXONE) SL SCH (20:46)
[2025-01-17] VITALS (83 sets, daily range): BP systolic 116–205; BP diastolic 56–93; TEMP 98.5–99.9; O2SAT 86–100
[2025-01-17] MEDS: niCARdipine IV 40 MG in IV 1 EA IV SCH (02:38)
[2025-01-17 04:48] LABS: PLATELET COUNT, AUTOMATED 284 10^3/uL (150-450)
[2025-01-17] MEDS ORDERED: LIDOCAINE 1% MDV 20 ML VIAL As Ordered ONE (07:27)
[2025-01-17 07:39] LABS: ALT/SGPT 149 U/L (7.0-40); AST/SGOT 249 U/L (<34); CALCIUM LEVEL 9.0 MG/DL (8.5-10.1); CARBON DIOXIDE LEVEL 35 MMOL/L (20-31); CHLORIDE LEVEL 98 MMOL/L (98-107); CREATININE FOR GFR 0.87 MG/DL (0.70-1.30); GLOMERULAR FILTRATION RATE > 90.0 (>56); MAGNESIUM LEVEL 2.3 MG/DL (1.8-2.4); PHOSPHORUS LEVEL 3.4 MG/DL (2.5-4.9); POTASSIUM SERUM 5.5 MMOL/L (3.5-5.1); SODIUM LEVEL 143 MMOL/L (136-145)
[2025-01-17] MEDS: BUPRENORPHINE/NALOXONE 8-2MG SUBLINGUAL TABLET(SUBOXONE) SL SCH (08:14)
[2025-01-17] MEDS: LIDOCAINE 1% MDV 20 ML VIAL SC ONE (08:28)
[2025-01-17] MEDS: DOCUSATE SODIUM 100 MG CAPSULE PO SCH (10:20)
[2025-01-17] MEDS: THIAMINE 100 MG TAB PO SCH (10:21)
[2025-01-17] MEDS: PANTOPRAZOLE 40MG TAB PO SCH (10:21)
[2025-01-17] MEDS: amLODIPine 5 MG TAB PO SCH (10:21)
[2025-01-17] MEDS: SYMBICORT 160/4.5MCG INHALER 6GM INH SCH (11:00)
[2025-01-17] MEDS: TIOTROPIUM BROM 2.5MCG/ACTUATION 4GM INH INH SCH (11:00)
[2025-01-17] MEDS: GABAPENTIN 100 MG CAP PO SCH (11:20)
[2025-01-17] MEDS: INSULIN LISPRO (NovoLOG) PER UNIT SC SCH ×2 (11:21→21:00)
[2025-01-17] MEDS: PATIROMER SORBITEX CALCIUM 8.4GM POWDER PACKET PO ONE (13:03)
[2025-01-17 14:24] LABS: CALCIUM LEVEL 8.1 MG/DL (8.5-10.1); CARBON DIOXIDE LEVEL 34 MMOL/L (20-31); CHLORIDE LEVEL 100 MMOL/L (98-107); CREATININE FOR GFR 0.77 MG/DL (0.70-1.30); GLOMERULAR FILTRATION RATE > 90.0 (>56); POTASSIUM SERUM 5.8 MMOL/L (3.5-5.1); SODIUM LEVEL 141 MMOL/L (136-145)
[2025-01-17] MEDS: amLODIPine 5 MG TAB PO ONE (19:52)
[2025-01-18] VITALS (15 sets, daily range): BP systolic 137–199; BP diastolic 62–89; TEMP 98.1–98.9; O2SAT 89–100
[2025-01-18 05:08] LABS: BASO # 0.0 10^3/uL (0.0-0.2); BASO % 0.1 % (0.0-1.0); EOS # 0.0 10^3/uL (0.0-0.5); EOS % 0.0 % (0.0-3.0); LYMPH # 1.0 10^3/uL (1.5-5.0); LYMPH % 7.1 % (24.0-44.0); MONO # 1.2 10^3/uL (0.0-0.8); MONO % 8.8 % (2.0-8.0); NEUTROPHILS # 11.8 10^3/uL (1.5-8.5); NEUTROPHILS % 83.2 % (36.0-66.0); PLATELET COUNT, AUTOMATED 264 10^3/uL (150-450)
[2025-01-18 05:50] LABS: ALT/SGPT 135 U/L (7.0-40); AST/SGOT 198 U/L (<34); CALCIUM LEVEL 8.7 MG/DL (8.5-10.1); CARBON DIOXIDE LEVEL 36 MMOL/L (20-31); CHLORIDE LEVEL 99 MMOL/L (98-107); CREATININE FOR GFR 0.78 MG/DL (0.70-1.30); GLOMERULAR FILTRATION RATE > 90.0 (>56); MAGNESIUM LEVEL 2.2 MG/DL (1.8-2.4); PHOSPHORUS LEVEL 3.6 MG/DL (2.5-4.9); POTASSIUM SERUM 6.2 MMOL/L (3.5-5.1); SODIUM LEVEL 141 MMOL/L (136-145)
[2025-01-18] MEDS ORDERED: KCL 20MEQ IN 100ML SWI (KRUN) 20 MEQ in IV 1 EA IV ONE (06:15)
[2025-01-18] MEDS ORDERED: MAG SULF 1GM/100ML (MAG RUN) 1 GM in IV 1 EA IV ONE (06:15)
[2025-01-18] MEDS: SOD POLYSTYRENE SULFONATE SUSP 15GM 60ML UD PO ONE (06:24)
[2025-01-18] MEDS: amLODIPine 10 MG TAB PO SCH (07:55)
[2025-01-18 15:09] LABS: CALCIUM LEVEL 8.4 MG/DL (8.5-10.1); CARBON DIOXIDE LEVEL > 40.0 MMOL/L (20-31); CHLORIDE LEVEL 98 MMOL/L (98-107); CREATININE FOR GFR 0.80 MG/DL (0.70-1.30); GLOMERULAR FILTRATION RATE > 90.0 (>56); MAGNESIUM LEVEL 2.0 MG/DL (1.8-2.4); POTASSIUM SERUM 5.7 MMOL/L (3.5-5.1); SODIUM LEVEL 143 MMOL/L (136-145)
[2025-01-18] MEDS: LABETALOL 100 MG/20 ML VIAL IV STA (21:18)
[2025-01-18] MEDS: hydrALAZINE 20 MG/ML 1 ML VIAL IV ONE (22:05)
[2025-01-19] VITALS (30 sets, daily range): BP systolic 136–226; BP diastolic 68–86; TEMP 97–98.9; O2SAT 83–100
[2025-01-19 05:24] LABS: BASO # 0.0 10^3/uL (0.0-0.2); BASO % 0.3 % (0.0-1.0); EOS # 0.0 10^3/uL (0.0-0.5); EOS % 0.3 % (0.0-3.0); LYMPH # 2.0 10^3/uL (1.5-5.0); LYMPH % 16.7 % (24.0-44.0); MONO # 1.3 10^3/uL (0.0-0.8); MONO % 11.0 % (2.0-8.0); NEUTROPHILS # 8.3 10^3/uL (1.5-8.5); NEUTROPHILS % 70.3 % (36.0-66.0); PLATELET COUNT, AUTOMATED 241 10^3/uL (150-450)
[2025-01-19 05:51] LABS: ALT/SGPT 165 U/L (7.0-40); AST/SGOT 173 U/L (<34); CALCIUM LEVEL 8.9 MG/DL (8.5-10.1); CARBON DIOXIDE LEVEL > 40.0 MMOL/L (20-31); CHLORIDE LEVEL 98 MMOL/L (98-107); CREATININE FOR GFR 0.74 MG/DL (0.70-1.30); GLOMERULAR FILTRATION RATE > 90.0 (>56); MAGNESIUM LEVEL 2.0 MG/DL (1.8-2.4); POTASSIUM SERUM 5.1 MMOL/L (3.5-5.1); SODIUM LEVEL 145 MMOL/L (136-145)
[2025-01-19] MEDS: predniSONE 20 MG TAB PO SCH (08:20)
[2025-01-19] MEDS: **hydrALAZINE** 10 MG TAB PO SCH (16:00)
[2025-01-19] MEDS: hydrALAZINE 20 MG/ML 1 ML VIAL IV PRN (23:04)
[2025-01-20] VITALS (26 sets, daily range): BP systolic 146–188; BP diastolic 76–92; TEMP 96.7–97.3; O2SAT 87–98
[2025-01-20] MEDS: LABETALOL 100 MG/20 ML VIAL IV PRN (00:48)
[2025-01-20] MEDS: hydrALAZINE 20 MG/ML 1 ML VIAL IV PRN (01:59)
[2025-01-20 05:30] LABS: ABG BASE EXCESS 10.3 (-2.0-2.0); ABG HCO3 38.8 MMOL/L (22.0-26.0); ABG O2 SATURATION 91.9 % (95.0-99.0); ABG PARTIAL PRESSURE O2 61.6 mmHg (75.0-100.0); ABG STANDARD HCO3 34.0 MMOL/L. (22.0-26.0); ABG TOTAL CO2 40.9 MMOL/L (22.0-29.0); ABG pH (ARTERIAL) 7.380 UNITS (7.350-7.450)
[2025-01-20 05:32] LABS: ABG PARTIAL PRESSURE CO2 67.1 mmHg (35.0-45.0)
[2025-01-20 06:05] LABS: BASO # 0.1 10^3/uL (0.0-0.2); BASO % 0.4 % (0.0-1.0); EOS # 0.1 10^3/uL (0.0-0.5); EOS % 1.0 % (0.0-3.0); LYMPH # 2.6 10^3/uL (1.5-5.0); LYMPH % 18.8 % (24.0-44.0); MONO # 1.2 10^3/uL (0.0-0.8); MONO % 8.6 % (2.0-8.0); NEUTROPHILS # 9.6 10^3/uL (1.5-8.5); NEUTROPHILS % 69.0 % (36.0-66.0); PLATELET COUNT, AUTOMATED 257 10^3/uL (150-450)
[2025-01-20 06:44] LABS: CALCIUM LEVEL 8.9 MG/DL (8.5-10.1); CARBON DIOXIDE LEVEL > 40.0 MMOL/L (20-31); CHLORIDE LEVEL 97 MMOL/L (98-107); CREATININE FOR GFR 0.74 MG/DL (0.70-1.30); GLOMERULAR FILTRATION RATE > 90.0 (>56); MAGNESIUM LEVEL 1.8 MG/DL (1.8-2.4); POTASSIUM SERUM 4.8 MMOL/L (3.5-5.1); SODIUM LEVEL 143 MMOL/L (136-145)
[2025-01-20] MEDS: **hydrALAZINE** 50 MG TAB PO SCH (08:31)
[2025-01-21] VITALS (33 sets, daily range): BP systolic 136–178; BP diastolic 72–84; TEMP 96.8–97.9; O2SAT 76–97
[2025-01-21 06:37] LABS: CALCIUM LEVEL 9.4 MG/DL (8.5-10.1); CARBON DIOXIDE LEVEL > 40.0 MMOL/L (20-31); CHLORIDE LEVEL 94 MMOL/L (98-107); CREATININE FOR GFR 0.75 MG/DL (0.70-1.30); GLOMERULAR FILTRATION RATE > 90.0 (>56); MAGNESIUM LEVEL 1.7 MG/DL (1.8-2.4); POTASSIUM SERUM 4.3 MMOL/L (3.5-5.1); SODIUM LEVEL 144 MMOL/L (136-145)
[2025-01-21] MEDS: MAGNESIUM OXIDE 400 MG TAB PO SCH (08:29)
[2025-01-21 14:01] LABS: VENOUS BASE EXCESS 7.7 (-2.0-2.0); VENOUS HCO3 35.3 MMOL/L (23.0-27.0); VENOUS O2 SATURATION 96.8 % (60.0-80.0); VENOUS PARTIAL PRESSURE CO2 59.6 mmHg (38.0-50.0); VENOUS PARTIAL PRESSURE O2 89.2 mmHg (30.0-50.0); VENOUS PH 7.390 UNITS (7.330-7.430); VENOUS STANDARD HCO3 31.5 MMOL/L; VENOUS TOTAL CO2 37.1 MMOL/L (24.0-28.0)
[2025-01-21] MEDS: NICOTINE 21 MG/24 HR 1 EA TRANSDERMAL TD PRN (23:40)
[2025-01-22] VITALS (33 sets, daily range): BP systolic 116–191; BP diastolic 61–94; TEMP 97–97.6; O2SAT 86–97
[2025-01-22 05:57] LABS: BASO # 0.0 10^3/uL (0.0-0.2); BASO % 0.2 % (0.0-1.0); EOS # 0.2 10^3/uL (0.0-0.5); EOS % 1.8 % (0.0-3.0); LYMPH # 2.5 10^3/uL (1.5-5.0); LYMPH % 21.9 % (24.0-44.0); MONO # 0.7 10^3/uL (0.0-0.8); MONO % 5.6 % (2.0-8.0); NEUTROPHILS # 8.0 10^3/uL (1.5-8.5); NEUTROPHILS % 68.8 % (36.0-66.0); PLATELET COUNT, AUTOMATED 263 10^3/uL (150-450)
[2025-01-22 06:24] LABS: C REACTIVE PROTEIN QUANTITATIV 0.53 MG/DL (<1.0)
[2025-01-22 06:32] LABS: CALCIUM LEVEL 9.5 MG/DL (8.5-10.1); CARBON DIOXIDE LEVEL > 40.0 MMOL/L (20-31); CHLORIDE LEVEL 93 MMOL/L (98-107); CREATININE FOR GFR 0.81 MG/DL (0.70-1.30); GLOMERULAR FILTRATION RATE > 90.0 (>56); MAGNESIUM LEVEL 1.8 MG/DL (1.8-2.4); POTASSIUM SERUM 4.8 MMOL/L (3.5-5.1); SODIUM LEVEL 142 MMOL/L (136-145)
[2025-01-22] MEDS: ATORVASTATIN 20 MG TAB PO SCH (12:49)
[2025-01-22] MEDS: GABAPENTIN 100 MG CAP PO SCH (12:49)
[2025-01-22] MEDS: IRBESARTAN 150 MG TAB PO SCH (13:52)
[2025-01-22] MEDS ORDERED: **hydrALAZINE** 50 MG TAB PO SCH (16:00)
[2025-01-22] MEDS: **hydrALAZINE** 10 MG TAB PO SCH (16:14)
[2025-01-23] VITALS (18 sets, daily range): BP systolic 133–164; BP diastolic 61–88; TEMP 97.3–97.8; O2SAT 86–100
[2025-01-23 07:18] LABS: CALCIUM LEVEL 9.7 MG/DL (8.5-10.1); CARBON DIOXIDE LEVEL 40 MMOL/L (20-31); CHLORIDE LEVEL 95 MMOL/L (98-107); CREATININE FOR GFR 0.84 MG/DL (0.70-1.30); GLOMERULAR FILTRATION RATE > 90.0 (>56); MAGNESIUM LEVEL 1.9 MG/DL (1.8-2.4); POTASSIUM SERUM 4.8 MMOL/L (3.5-5.1); SODIUM LEVEL 144 MMOL/L (136-145)
[2025-01-23] MEDS ORDERED: PANT40TA29 PO (08:21)
[2025-01-23] MEDS ORDERED: MAGN400T33 PO (08:21)
[2025-01-23] MEDS ORDERED: ALBU8.5H INH (08:21)
[2025-01-23] MEDS ORDERED: THIA100TA PO (08:21)
[2025-01-23] MEDS ORDERED: AMLO1TAB25 PO (08:21)
[2025-01-23] MEDS ORDERED: PRED10TA2 PO (08:21)
[2025-01-23] MEDS ORDERED: PRED20TA PO (08:21)
[2025-01-23] MEDS ORDERED: SPIR12.9 INH (08:21)
[2025-01-23] MEDS ORDERED: TALK1KIT MC (08:21)
[2025-01-23] MEDS ORDERED: NICO21PAT TD (08:21)
[2025-01-23] MEDS ORDERED: HYDR-161 PO (08:21)
[2025-01-23] MEDS ORDERED: DOXY100C3 PO (08:24)
[2025-01-23] MEDS: FUROSEMIDE 40 MG/4 ML VIAL IV ONE (16:15)
[2025-01-24] VITALS (8 sets, daily range): BP systolic 142–160; BP diastolic 69–80; TEMP 97.4–98.2; O2SAT 81–98
[2025-01-24 07:28] LABS: CALCIUM LEVEL 9.3 MG/DL (8.5-10.1); CARBON DIOXIDE LEVEL > 40.0 MMOL/L (20-31); CHLORIDE LEVEL 93 MMOL/L (98-107); CREATININE FOR GFR 0.93 MG/DL (0.70-1.30); GLOMERULAR FILTRATION RATE > 90.0 (>56); MAGNESIUM LEVEL 2.0 MG/DL (1.8-2.4); POTASSIUM SERUM 4.7 MMOL/L (3.5-5.1); SODIUM LEVEL 143 MMOL/L (136-145)
[2025-01-24] MEDS: FUROSEMIDE 40 MG/4 ML VIAL IV ONE (09:44)
[2025-01-24 10:10] LABS: ABG BASE EXCESS 9.6 (-2.0-2.0); ABG HCO3 36.6 MMOL/L (22.0-26.0); ABG O2 SATURATION 90.2 % (95.0-99.0); ABG PARTIAL PRESSURE CO2 57.3 mmHg (35.0-45.0); ABG PARTIAL PRESSURE O2 57.8 mmHg (75.0-100.0); ABG STANDARD HCO3 33.1 MMOL/L. (22.0-26.0); ABG TOTAL CO2 38.3 MMOL/L (22.0-29.0); ABG pH (ARTERIAL) 7.423 UNITS (7.350-7.450)
== END 2025-01-24 12:10 | disposition home or self-care (01) | DRG 133 ==
LOC: M ED 17:08 → EDBD 17:08 → M ED INP 18:50 → M ICU 22:07 → M PCU 01-19 22:50
PROVIDERS: ADMIT Internal Medicine; ATTEND Internal Medicine
PROC: 0BH17EZ Insertion of Endotracheal Airway into Trachea, Via Natural or Artificial Opening (ICD-10-PCS; 2025-01-13)
PROC: 5A1945Z Respiratory Ventilation, 24-96 Consecutive Hours (ICD-10-PCS; 2025-01-15)
PROC: 0W9B30Z Drainage of Left Pleural Cavity with Drainage Device, Percutaneous Approach (ICD-10-PCS; principal; 2025-01-17)
DX: J96.21 Acute and chronic respiratory failure with hypoxia (principal); N17.9 Acute kidney failure, unspecified; J44.1 Chronic obstructive pulmonary disease with (acute) exacerbation; E87.29 Other acidosis; I50.32 Chronic diastolic (congestive) heart failure; Z99.81 Dependence on supplemental oxygen; I27.20 Pulmonary hypertension, unspecified; J93.83 Other pneumothorax; E87.5 Hyperkalemia; E66.01 Morbid (severe) obesity due to excess calories; Z68.41 Body mass index [BMI] 40.0-44.9, adult; K76.0 Fatty (change of) liver, not elsewhere classified; E11.9 Type 2 diabetes mellitus without complications; I11.0 Hypertensive heart disease with heart failure; Z79.899 Other long term (current) drug therapy; R91.1 Solitary pulmonary nodule; R00.0 Tachycardia, unspecified; J98.11 Atelectasis; F17.200 Nicotine dependence, unspecified, uncomplicated; Z71.6 Tobacco abuse counseling; I16.0 Hypertensive urgency; T46.1X5A Adverse effect of calcium-channel blockers, initial encounter; J96.22 Acute and chronic respiratory failure with hypercapnia

== ENCOUNTER → 2025-02-06 | Outpatient (REF) | payer OTHER ==
[~2025-02-06] MED LIST changes: +ALBU2.5V10 INH; +AMLO1TAB24 PO; +CARV6.25 PO; +DOXY100C3 PO; +GABA-1171 PO; +HYDR-161 PO; +IRBE150T27 PO; +MAGN400T33 PO; +SPIR12.9 INH; +TALK1KIT MC; +THIA100TA PO; +TREL1AER PO; -cefTRIAXone SOD 1 GM in DEXTROSE 5% (D5W) ADV/MINI-BAG 50 ML IV SCH
== END ==
LOC: M SFHCPLAZ 17:01
PROVIDERS: ATTEND Student in an Organized Health Care Education/Training Program
DX: N41.0 Acute prostatitis (principal)

== ENCOUNTER → 2025-02-09 | Outpatient (CLI) | payer OTHER ==
[2025-02-09 13:57] LABS: CALCIUM LEVEL 9.1 MG/DL (8.5-10.1); CARBON DIOXIDE LEVEL 37 MMOL/L (20-31); CHLORIDE LEVEL 96 MMOL/L (98-107); CREATININE FOR GFR 0.85 MG/DL (0.70-1.30); GLOMERULAR FILTRATION RATE > 90.0 (>56); POTASSIUM SERUM 4.1 MMOL/L (3.5-5.1); SODIUM LEVEL 141 MMOL/L (136-145)
== END ==
LOC: M PLALAB 11:40
PROVIDERS: ATTEND Student in an Organized Health Care Education/Training Program
DX: N30.00 Acute cystitis without hematuria (principal)

== ENCOUNTER → 2025-03-13 | Outpatient (CLI) | payer OTHER | LOC: M RAD 08:31 | DX: N40.0 Benign prostatic hyperplasia without lower urinary tract symptoms (principal) ==

== ENCOUNTER → 2025-03-22 | Outpatient (CLI) | payer OTHER | LOC: M PLAIMG 06:56 | PROVIDERS: ATTEND Internal Medicine Pulmonary Disease | DX: R91.8 Other nonspecific abnormal finding of lung field (principal) ==